=== PATIENT | female | born 1980 | race Caucasian/White ===

== ENCOUNTER 2021-04-18 23:53 | Emergency (ER) | payer OTHER, SELFPAY ==
--- NOTE | 2021-04-18 23:58 | ED.RECABL ---
HPI - Recheck/Abnormal Lab/Rx General Chief Complaint: Recheck/Abnormal Lab/Rx Stated Complaint: High BG Time Seen by Provider: 04/18/21 23:58 History of Present Illness HPI narrative: 40 yo female w/ h/o DM presents to the ED for hyperglycemia. 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 She was trying to stay hydrated, but felt like she was not able to. She checked her blood sugar and it was over 300. She has not had any recent medication changes. Related Data Home Medications Medication Instructions Recorded Confirmed clonazepam 04/19/21 fluoxetine mg 04/19/21 gabapentin 04/19/21 glimepiride mg 04/19/21 loratadine mg 04/19/21 meloxicam 04/19/21 metformin mg 04/19/21 omeprazole 04/19/21 tramadol mg 04/19/21 valacyclovir 04/19/21 zolpidem 04/19/21 04/19/21 Allergies Allergy/AdvReac Type Severity Reaction Status Date / Time No Known Allergies Allergy Verified 04/19/21 21:12 Review of Systems Review of Systems: All systems reviewed & are unremarkable except as noted in HPI and below Constitutional: Constitutional: Reports fatigue and Denies fever(s) Cardiovascular: Cardiovascular: Denies chest pain Respiratory: Respiratory: Denies dyspnea Gastrointestinal: Gastrointestinal: Denies abdominal pain Genitourinary: Genitourinary: Denies hematuria and Denies dysuria [facility] Past Medical History Medical History (Updated 04/24/21 @ 16:57 by Konstantin Moreno MD) Diabetes mellitus HTN (hypertension) Exam Const: General: no acute distress and alert Nutritional Appearance: obese Orientation/consciousness: patient oriented x3 HENMT: Head: normal to inspection Mouth: Yes dry mucous membranes Eyes: EOM: EOMs intact bilaterally Neck: Neck: normal visual inspection and no lymphadenopathy Chest: Chest palpation & inspection: no tenderness Resp: Effort & Inspection: normal respiratory effort Auscultation: clear to auscultation bilaterally, no rales, no rhonchi and no wheezes Cardio: Jugular venous distension: no JVD Rate: regular rate Rhythm: regular rhythm Heart sounds: no murmurs GI: Inspection: non-distended GI Palp: Yes Soft to palpation and No Tenderness to palpation present (GI) Skin: General skin exam: normal color Neuro: General: patient oriented x3, moves all extremities, no focal motor deficits and CN's II-XI intact bilaterally Cranial nerves: Yes Nystagmus not present Speech: normal speech Gait exam (Neuro): Normal gait present Extrem: General: normal to inspection and no edema Psych: Appearance: well kempt Affect: normal affect and Anxious affect present Course Vital Signs Vital signs: Vital Signs Temperature 36.0 C L 04/19/21 00:02 Pulse Rate 67 04/19/21 00:02 Respiratory Rate 20 04/19/21 00:02 Blood Pressure 144/75 H 04/19/21 00:02 Pulse Oximetry 100 04/19/21 00:02 Temperature 36.0 C L 04/19/21 00:02 Pulse Rate 71 04/19/21 03:23 Respiratory Rate 18 04/19/21 03:23 Blood Pressure 143/84 H 04/19/21 03:23 Pulse Oximetry 97 04/19/21 03:23 MDM - Recheck/Abnormal Lab/Rx Medical Records Attestation: I reviewed the patient's medical records. Lab Data Attestation: I reviewed the patient's lab results. Result diagrams: 04/19/21 00:43 04/19/21 01:03 Labs: Lab Results 04/19/21 04/19/21 04/19/21 Range/Units 00:02 00:43 01:03 WBC 12.4 H (4.5-10.0) K/mm3 RBC 4.91 (4.2-5.4) M/mm3 Hgb 13.5 (12.0-15.0) g/dL Hct 40.7 (37.0-47.0) % MCV 82.9 (80-100) fl MCH 27.5 (26-34) pg MCHC 33.2 (32-36) g/dl RDW 13.2 (11.5-14.5) % Plt Count 253 (150-375) k/mm3 MPV 10.6 H (7.4-10.4) fl Immature Gran % (Auto) 0.3 (0-0.5) % Neut % (Auto) 67.0 (45.5-73.1) % Lymph % (Auto) 24.8 (18.3-44.2) % Craig % (Auto) 6.3 (2.6-8.5) % Eos % (Auto) 1.2 (0-4.4) % Baso % (Au
[2021-04-19 00:02] VITALS: BP 144/75; PULSE 67; RESP 20; TEMP 36; O2SAT 100
[2021-04-19 00:04] LABS: Glucose Point of Care 265 mg/dl (65-105)
[2021-04-19] MEDS: SODIUM CHLORIDE 0.9% IV 1,000 ML 999 ML IV CONT (00:50)
[2021-04-19 01:00] LABS: Basophils Absolute Auto 0.1 K/mm3 (0.0-0.1); Basophils Percent Auto 0.4 % (0.2-1.2); Eosinophils Absolute Auto 0.2 K/mm3 (0-0.3); Eosinophils Percent Auto 1.2 % (0-4.4); Hematocrit 40.7 % (37.0-47.0); Hemoglobin 13.5 g/dL (12.0-15.0); Immature Granulocyte Absolute 0.04 K/mm3 (0.00-0.031); Immature Granulocyte Percent A 0.3 % (0-0.5); Lymphocytes Absolute Auto 3.07 K/mm3 (0.9-3.2); Lymphocytes Percent Auto 24.8 % (18.3-44.2); Mean Corpuscular HGB Conc 33.2 g/dl (32-36); Mean Corpuscular Hemoglobin 27.5 pg (26-34); Mean Corpuscular Volume 82.9 fl (80-100); Mean Platelet Volume 10.6 fl (7.4-10.4); Monocytes Absolute Auto 0.8 K/mm3 (0.1-0.6); Monocytes Percent Auto 6.3 % (2.6-8.5); Neutrophils Absolute Auto 8.3 K/mm3 (1.3-6.7); Platelet Count Result 253 k/mm3 (150-375); Red Blood Count 4.91 M/mm3 (4.2-5.4); Red Cell Distribution Width 13.2 % (11.5-14.5); White Blood Count 12.4 K/mm3 (4.5-10.0)
[2021-04-19 01:30] LABS: Alanine Aminotransferase 16 U/L (4-35); Alkaline Phosphatase 80 U/L (38-126); Anion Gap 7 mmol/L (8-16); Aspartate Amino Transferase 20 U/L (14-36); Bilirubin,Total 0.6 mg/dL (0.2-1.3); Blood Urea Nitrogen 17 mg/dL (7-17); Calcium 9.3 mg/dL (8.4-10.2); Carbon Dioxide 26 mmol/L (22-30); Chloride 101 mmol/L (98-107); Estimated CRCL calculation 149 ml/min; Estimated Glomerular Filt Rate > 60; Glucose 237 mg/dL (65-105); Potassium 4.2 mmol/L (3.4-5.0); Sodium 134 mmol/L (137-145)
[2021-04-19 02:10] LABS: Add Urine Microscopic? YES; Appearance Urine Clear (Clear); Bacteria Urine Trace /hpf; Bilirubin Urine Negative (Negative); Blood Urine Negative (Negative); Color Urine Yellow (Yellow); Glucose Urine UA 3+ mg/dL (Negative); Ketones Urine Negative (Negative); Leukocyte Esterase Ur Negative LEU/UL (Negative); Nitrate Urine Negative (Negative); Protein Urine Negative (Negative); RBC Urine 0-2 /hpf (0-2); Squamous Epithelial Cell Urine Rare /hpf (Few); WBC Urine 0-3 /hpf
[2021-04-19 02:11] LABS: Specific Grav Ur 1.037 (1.001-1.035)
[2021-04-19 02:35] VITALS: BP 146/98; PULSE 63; RESP 18; O2SAT 98
[2021-04-19 03:23] VITALS: BP 143/84; PULSE 71; RESP 18; O2SAT 97
== END 2021-04-19 03:27 | disposition home or self-care (01) ==
PROVIDERS: Emergency Provider Emergency Medicine; PCP Family Medicine
DX: E11.65 Type 2 diabetes mellitus with hyperglycemia (principal); I10 Essential (primary) hypertension; Z79.84 Long term (current) use of oral hypoglycemic drugs
CPT/HCPCS: 36415; 80053; 81001; 82948; 85025; 90715; 96360; 96361; 96374; 96375; 99283; 99284; J1200; J1815; J2765; J7030

== ENCOUNTER 2021-04-19 20:13 | Emergency (ER) | payer OTHER, SELFPAY ==
[2021-04-19 20:33] VITALS: BP 144/75; PULSE 64; RESP 16; TEMP 36.6; O2SAT 99
[2021-04-19 20:33] LABS: Glucose Point of Care 252 mg/dl (65-105)
[2021-04-19 21:11] VITALS: BP 145/80; PULSE 66; RESP 18; O2SAT 99
[2021-04-19 22:26] LABS: Glucose Point of Care 248 mg/dl (65-105)
[2021-04-19] MEDS: SODIUM CHLORIDE 0.9% IV 1,000 ML 999 ML IV CONT (22:27)
[2021-04-19] MEDS: diphenhydrAMINE HCl INJ 50 MG/ML VIAL IV PUSH (22:28)
[2021-04-19] MEDS: METOCLOPRAMIDE HCL INJ 10 MG/2 ML VIAL IV PUSH (22:31)
--- NOTE | 2021-04-19 23:30 | ED.GENADULT ---
HPI - General Adult General Chief complaint: Nausea/Vomiting/Diarrhea Stated complaint: nausea, emesis, elevated glucose Time Seen by Provider: 04/19/21 22:28 Source: patient and RN notes reviewed Mode of arrival: ambulatory Limitations: no limitations History of Present Illness HPI narrative: Patient is 40 years old white female presents with elevated blood glucose, at home was 252 patient denies any fever, chills patient report stress, and anxiety. Patient reported that her blood glucose went to [place] high after her last meal. Related Data Home Medications Medication Instructions Recorded Confirmed clonazepam 04/19/21 fluoxetine mg 04/19/21 gabapentin 04/19/21 glimepiride mg 04/19/21 loratadine mg 04/19/21 meloxicam 04/19/21 metformin mg 04/19/21 omeprazole 04/19/21 tramadol mg 04/19/21 valacyclovir 04/19/21 zolpidem 04/19/21 04/19/21 Allergies Allergy/AdvReac Type Severity Reaction Status Date / Time No Known Allergies Allergy Verified 04/19/21 21:12 Review of Systems Review of Systems: Narrative: CONSTITUTIONAL: Denies fever, chills, or sweats. EYES: Denies visual changes, redness, or discharge. ENT: Denies rhinorrhea, congestion, sore throat, or otalgia. CARDIOVASCULAR: Denies chest pain, palpitations, or edema. RESPIRATORY: Denies cough or dyspnea. GASTROINTESTINAL: Denies abdominal pain, nausea, vomiting, or diarrhea. GENITOURINARY: Denies dysuria or hematuria. SKIN: Denies rash or itching. MUSCULOSKELETAL: Denies back pain, joint pain, or myalgia. NEUROLOGIC: Denies headache, numbness, or weakness. PSYCHIATRIC: Denies anxiety or depression. Exam Narrative: Exam Narrative: General appearance: Well-developed, well-nourished Skin: Normal color Head: Normocephalic, nontraumatic Eyes: Clear conjunctiva ENT: Oropharynx normal, ears normal, nose normal Neck: Supple, nontender Chest and respiratory: Airway patent, no respiratory distress, no accessory muscle use Heart: Regular rate/rhythm Abdomen: Soft, nontender, no organomegaly, quiet bowel sounds Vascular: Normal peripheral pulses, normal capillary refill. Musculoskeletal: Normal range of motion, nontender back Neurologic: Alert and oriented ?3, [employer] is normal as tested, no gross motor deficit Course Course Emergency Course: Improving Vital Signs Vital signs: Vital Signs Temperature 36.6 C 04/19/21 20:33 Pulse Rate 64 04/19/21 20:33 Respiratory Rate 16 04/19/21 20:33 Blood Pressure 144/75 H 04/19/21 20:33 Pulse Oximetry 99 04/19/21 20:33 Temperature 36.6 C 04/19/21 20:33 Pulse Rate 66 04/19/21 21:11 Respiratory Rate 18 04/19/21 21:11 Blood Pressure 145/80 H 04/19/21 21:11 Pulse Oximetry 99 04/19/21 21:11 Medical Decision Making MDM Narrative Medical decision making narrative: Patient feeling much better after receiving 1 L of normal saline, Reglan 10 mg and Benadryl 50 mg patient reports feeling great and would like to go home right away. Blood glucose at this time is 224 Differential Diagnosis Differential Diagnosis: Poorly controlled diabetic hyperglycemia Vital Signs Vital Signs: Vital Signs Temperature 36.6 C 04/19/21 20:33 Pulse Rate 64 04/19/21 20:33 Respiratory Rate 16 04/19/21 20:33 Blood Pressure 144/75 H 04/19/21 20:33 Pulse Oximetry 99 04/19/21 20:33 Temperature 36.6 C 04/19/21 20:33 Pulse Rate 66 04/19/21 21:11 Respiratory Rate 18 04/19/21 21:11 Blood Pressure 145/80 H 04/19/21 21:11 Pulse Oximetry 99 04/19/21 21:11 Lab Data Labs: Lab Results 04/19/21 04/19/21 Range/Units 20:30 22:23 POC Capillary Glucose 252 H 248 H (65-105) mg/dl Critical
[2021-04-19] MEDS: INSULIN ASPART (*BKC) 100 UNITS/ML SUB-Q (23:47)
[2021-04-19 23:51] VITALS: BP 144/82; PULSE 67; RESP 18; O2SAT 100
[2021-04-20 06:15] LABS: Glucose Point of Care 224 mg/dl (65-105)
== END 2021-04-19 23:54 | disposition home or self-care (01) ==
PROVIDERS: Emergency Provider Emergency Medicine; PCP Family Medicine
DX: R73.9 Hyperglycemia, unspecified (principal)
CPT/HCPCS: 82948; 90715; 96361; 96374; 96375; 99284; J1200; J1815; J2765; J7030

== ENCOUNTER 2021-09-22 11:45 | Emergency (ER) | payer OTHER, SELFPAY ==
[2021-09-22 11:51] VITALS: BP 140/88; PULSE 60; RESP 16; TEMP 36.1; O2SAT 99
--- NOTE | 2021-09-22 13:34 | ED.GENADULT ---
HPI - General Adult General Chief complaint: Nausea/Vomiting/Diarrhea Stated complaint: Throwing Up Time Seen by Provider: 09/22/21 13:22 Source: patient and RN notes reviewed Mode of arrival: ambulatory Limitations: no limitations History of Present Illness HPI narrative: Patient presents today complaining of a 3-day history of nausea, vomiting, diarrhea, body aches, headache, right ear pain, chills, fatigue, dry cough. Denies sore throat or fever. Denies shortness of breath. She has been taking Tylenol at home with mild relief. MD complaint: Vomiting, diarrhea, body aches Related Data Home Medications Medication Instructions Recorded Confirmed glimepiride 4 mg PO DAILY 04/19/21 09/22/21 metformin mg 04/19/21 omeprazole 04/19/21 valacyclovir 04/19/21 zolpidem 04/19/21 04/19/21 liraglutide [Victoza 2-Javed] mg SUBCUT 09/22/21 09/22/21 Allergies Allergy/AdvReac Type Severity Reaction Status Date / Time No Known Allergies Allergy Verified 09/22/21 13:18 Review of Systems Review of Systems: CONSTITUTIONAL: Denies fever, or sweats.+ Body aches, chills, fatigue EYES: Denies visual changes, redness, or discharge. ENT: Denies rhinorrhea, congestion, sore throat. + Right ear pain CARDIOVASCULAR: Denies chest pain, palpitations, or edema. RESPIRATORY: Denies dyspnea.+ Cough GASTROINTESTINAL: Denies abdominal pain. + Nausea, vomiting, diarrhea GENITOURINARY: Denies dysuria or hematuria. SKIN: Denies rash, itching, or wounds. MUSCULOSKELETAL: Denies back pain, joint pain, or myalgia. NEUROLOGIC: Denies numbness, tingling, or weakness.+ Headache PSYCH: Denies depression or anxiety. [facility] Past Medical History Medical History Diabetes mellitus HTN (hypertension) Comments At time of signature, I have reviewed and agree with nursing past medical, surgical, social and family history unless otherwise noted. Please see nursing chart for further information. There is no relevant family history pertinent to the presenting complaint Exam Narrative: GENERAL: Mildly ill-appearing, well-nourished, and in no acute distress. HEAD: Normocephalic, atraumatic. EYES: EOMI. No redness or drainage. Conjunctivae normal. ENT: Mucous membranes pink and moist. Nares clear. No rhinorrhea. TMs normal bilaterally. Throat mildly erythematous without edema or exudate. Uvula midline. NECK: Normal AROM. Supple. No lymphadenopathy. CHEST: No respiratory distress. Clear to auscultation. HEART: Regular rate and rhythm. No murmur appreciated. Normal peripheral pulses. EXTREMITIES: Normal range of motion. No edema. SKIN: Warm, dry, no rash. Capillary refill normal. Normal skin turgor. NEURO: No focal deficits. Alert and oriented x3. Gait steady. PSYCH: Normal affect. No signs of depression or anxiety. Course Course Emergency Course: Covid PCR pending Vital Signs Vital signs: Vital Signs Temperature 97.0 F L 09/22/21 11:51 Pulse Rate 60 09/22/21 11:51 Respiratory Rate 16 09/22/21 11:51 Blood Pressure 140/88 09/22/21 11:51 Pulse Oximetry 99 09/22/21 11:51 Temperature 97.0 F L 09/22/21 11:51 Pulse Rate 60 09/22/21 11:51 Respiratory Rate 16 09/22/21 11:51 Blood Pressure 140/88 09/22/21 11:51 Pulse Oximetry 99 09/22/21 11:51 Reviewed. Pt has been instructed to follow up with her PCP regarding her elevated blood pressure today. Medical Decision Making Differential Diagnosis Differential Diagnosis: COVID-19, influenza, strep throat, viral syndrome, URI, gastroenteritis, AOM Vital Signs Vital Signs: Vital Signs Temperature 97.0 F L 09/22/21 11:51 Pulse Rate 60 09/22/21 11:51 Respiratory Rate 16 09/22/21 11:51 Blood Pressure 140/88 09/22/21 11:51 Pulse Oximetry 99 09/22/21 11:51 Temperature 97.0 F L 09/22/21 11:51 Pulse Rate 60 09/22/21 11:51 Respiratory Rate 16 09/22/21 11:51 Blood Pressure 140/88 11
[2021-09-23 20:04] LABS: SARS-CoV-2 RNA PCR Negative
== END 2021-09-22 14:05 | disposition home or self-care (01) ==
PROVIDERS: Emergency Provider Nurse Practitioner; PCP Family Medicine
DX: B34.9 Viral infection, unspecified (principal); Z20.822 Contact with and (suspected) exposure to COVID-19; E11.9 Type 2 diabetes mellitus without complications; I10 Essential (primary) hypertension
CPT/HCPCS: 87081; 87426; 87804; 87880; 99213; C9803; G0463; U0003; U0005

== ENCOUNTER 2021-10-28 11:16 | Emergency (ER) | payer OTHER, SELFPAY ==
[2021-10-28 11:30] VITALS: BP 150/85; PULSE 63; RESP 18; TEMP 37.1; O2SAT 100
--- NOTE | 2021-10-28 13:19 | ED.GENADULT ---
HPI - General Adult General Chief complaint: Upper Respiratory Infection Stated complaint: Fever,Sore Throat Time Seen by Provider: 10/28/21 13:10 Source: patient, RN notes reviewed and old records reviewed Mode of arrival: ambulatory Limitations: no limitations History of Present Illness HPI narrative: 40-year-old female who presents to [facility] with complaints of body aches,fevers up to 101.5F, cough, ears feel full, eyes are burning and she has some sore throat pain which started 2 nights ago. Patient states that dhe has had COVID vaccines and Flu shot but has not had Booster. Patient reports that her last dose of Tylenol was last night. Patient denies any acute shortness of breath or any noted wheezing, SAO2 100% on room air. MD complaint: bodyaches, fever, ears feel full, eyes burning, Related Data Home Medications Medication Instructions Recorded Confirmed clonazepam 0.5 mg PO DIRECTED 10/28/21 10/28/21 dextroamphetamine-amphetamine 20 mg PO DAILY 10/28/21 10/28/21 fluoxetine 40 mg PO DAILY 10/28/21 10/28/21 glimepiride 4 mg PO DAILY 10/28/21 10/28/21 loratadine 10 mg PO DAILY 10/28/21 10/28/21 metformin 850 mg PO DAILY 10/28/21 10/28/21 omeprazole 40 mg PO DAILY 10/28/21 10/28/21 tramadol 50 mg PO DAILY 10/28/21 10/28/21 Allergies Allergy/AdvReac Type Severity Reaction Status Date / Time No Known Allergies Allergy Verified 10/28/21 13:09 Review of Systems Review of Systems: CONSTITUTIONAL: Positive fever, chills, or sweats. EYES: Denies visual changes, redness, or discharge. Reports eyes burning ENT: Positive rhinorrhea, congestion, sore throat, or otalgia. CARDIOVASCULAR: Denies chest pain, palpitations, or edema. RESPIRATORY positive cough denies dyspnea. GASTROINTESTINAL: Denies abdominal pain, nausea, vomiting, or diarrhea. GENITOURINARY: Denies dysuria or hematuria. SKIN: Denies rash or itching. MUSCULOSKELETAL: Denies back pain, joint pain, positive body aches NEUROLOGIC: Denies headache, numbness, or weakness. PSYCHIATRIC: Positive anxiety or depression. All systems reviewed & are unremarkable except as noted in HPI and below PMFSH Past Medical History Medical History (Updated 10/29/21 @ 00:27 by Charmaine Ventura NP) Anxiety and depression Diabetes mellitus GERD (gastroesophageal reflux disease) HTN (hypertension) Obesity Surgical History Surgical History (Updated 10/29/21 @ 00:31 by Charmaine Ventura NP) H/O inguinal hernia repair H/O umbilical hernia repair History of cholecystectomy Family History Family History (Updated 10/29/21 @ 00:32 by Charmaine Ventura NP) Grandparent Heart disease Diabetes mellitus Alzheimers disease COPD (chronic obstructive pulmonary disease) Arthritis Social History Social History (Updated 10/29/21 @ 00:33 by Charmaine Ventura NP) Smoking status: Never smoker Alcohol intake: current Alcohol use details: rare social Substance use: never Living arrangements: with family Gender identity (if verbalized by the patient): Female Comments At time of signature, agree with nursing past medical, surgical, social and family history. There is no relevant family history pertinent to the presenting complaint Exam Narrative: GENERAL:Ill-appearing, well-nourished,obese and in no acute distress. HEAD: Normocephalic, atraumatic. EYES: PERRLA and EOMI.stated eyes burning no visual changes ENT: Nares patent with clear rhinorrhea no epistaxis. Mucous membranes moist.TM's normal with good light reflex, throat red with no lesions or tonsil enlargement, post nasal drainage. NECK: Supple.no lymphadenopathy CHEST: Clear to auscultation. No respiratory distress.SAO2 100% on room air. cough noted HEART: Regular rate and rhythm. No murmur heard. Normal peripheral pulses. ABDOMEN: Soft, nontender, nondistended, normal active bowel sounds. EXTREMITIES: Normal range of motion. No edema. SKIN: Warm, dry, no rash. NEURO: No focal deficits. Alert and or
== END 2021-10-28 14:37 | disposition home or self-care (01) ==
PROVIDERS: Emergency Provider Registered Nurse
DX: U07.1 COVID-19 (principal); E11.9 Type 2 diabetes mellitus without complications; K21.9 Gastro-esophageal reflux disease without esophagitis; I10 Essential (primary) hypertension; E66.9 Obesity, unspecified; Z68.42 Body mass index [BMI] 45.0-49.9, adult; F41.9 Anxiety disorder, unspecified; F32.9 Major depressive disorder, single episode, unspecified
CPT/HCPCS: 87081; 87426; 87804; 87880; 99213; C9803; G0463

== ENCOUNTER 2022-05-23 16:52 | Emergency (ER) | payer OTHER, SELFPAY ==
--- NOTE | ~2022-05-23 | CT_ITS ---
EXAMINATION: CT brain wo con DATE: 05/23/2022 17:32 INDICATION: new onset of seizure . TECHNIQUE: Computed tomography (CT) of the head was performed without intravenous contrast. The mA wa s adjusted according to patient size. Iterative reconstruction technique was employed. The dose-lengt h product was 605.33 mGy-cm. COMPARISON: None FINDINGS: No acute intracranial hemorrhage or extra-axial fluid collection. No hydrocephalus, mass, or herniation. No acute ischemic infarct. Unremarkable dural venous sinus attenuation. No acute osseous abnormality. The aerated spaces are clear. IMPRESSION: No acute intracranial process. Reviewed, dictated and finalized at location K.
[2022-05-23 17:00] VITALS: BP 104/54; PULSE 79; RESP 16; TEMP 36.9; O2SAT 100
--- NOTE | 2022-05-23 17:16 | ECG_ITS ---
Measurements Intervals [place] Rate: 79 P: 36 IN: 156 QRS: 26 QRSD: 92 T: 52 QT: 370 QTc: 424 Interpretive Statements SINUS RHYTHM POSSIBLE LEFT ATRIAL ENLARGEMENT BORDERLINE R WAVE PROGRESSION, ANTERIOR LEADS BASELINE WANDER- AVF BORDERLINE ECG Electronically Signed On 05-24-2022 8:03:42 CDT by Elgin Talamantes D.O.
--- NOTE | 2022-05-23 17:17 | ED.SEIZURE ---
HPI - Seizure General Chief Complaint: Seizure Stated Complaint: NEW ONSET SZ ACTIVITY Time Seen by Provider: 05/23/22 17:09 History of Present Illness HPI Narrative: 41-year-old female presents emergency room for evaluation of new onset seizure. Patient states earlier this afternoon, she returned home from eating lunch at a restaurant, states that she was dizzy, felt feverish, diaphoretic and had a syncopal episode. Patient states her roommates who reportedly told her she was unconscious for about 30 seconds. Several minutes later, the symptoms returned, and the patient had a second syncopal episode followed by seizure-like activity. According to her roommates, the time between the end of her seizure and when she regained consciousness was about 2 minutes. Patient states that she did not lose control of her bladder or bite her tongue. Patient does not have a known history of seizure disorder. Patient states that she discontinued taking her fluoxetine, tramadol, and clonazepam over 6 weeks ago. Patient denies any injury or trauma. Denies fever. Related Data Home Medications Medication Instructions Recorded Confirmed clonazepam 0.5 mg tablet 0.5 mg PO DIRECTED 10/28/21 10/28/21 dextroamphetamine-amphetamine ER 20 mg PO DAILY 10/28/21 10/28/21 20 mg 24hr capsule,extend release fluoxetine 40 mg capsule 40 mg PO DAILY 10/28/21 10/28/21 glimepiride 4 mg tablet 4 mg PO DAILY 10/28/21 10/28/21 loratadine 10 mg tablet 10 mg PO DAILY 10/28/21 10/28/21 metformin 850 mg tablet 850 mg PO DAILY 10/28/21 10/28/21 omeprazole 40 mg capsule,delayed 40 mg PO DAILY 10/28/21 10/28/21 release tramadol 50 mg tablet 50 mg PO DAILY 10/28/21 10/28/21 Allergies Allergy/AdvReac Type Severity Reaction Status Date / Time No Known Allergies Allergy Verified 10/28/21 13:09 Review of Systems Review of Systems: CONSTITUTIONAL: Denies fever, chills, or sweats. EYES: Denies visual changes, redness, or discharge. ENT: Denies rhinorrhea, congestion, sore throat, or otalgia. CARDIOVASCULAR: Denies chest pain, palpitations, or edema. RESPIRATORY: Denies cough or dyspnea. GASTROINTESTINAL: Denies abdominal pain, nausea, vomiting, or diarrhea. GENITOURINARY: Denies dysuria or hematuria. SKIN: Denies rash or itching. MUSCULOSKELETAL: Denies back pain, joint pain, or myalgia. NEUROLOGIC: Reports seizure-like activity PSYCHIATRIC: Denies anxiety or depression. [facility] Past Medical History Medical History Anxiety and depression Diabetes mellitus GERD (gastroesophageal reflux disease) HTN (hypertension) Obesity Surgical History Surgical History H/O inguinal hernia repair H/O umbilical hernia repair History of cholecystectomy Family History Family History Grandparent Heart disease Diabetes mellitus Alzheimers disease COPD (chronic obstructive pulmonary disease) Arthritis Social History Social History Smoking status: Never smoker Alcohol intake: current Alcohol use details: rare social Substance use: never Gender identity (if verbalized by the patient): Female Exam Narrative: GENERAL: Well-appearing, well-nourished, no physical limitations, and in no acute distress. HEAD: Normocephalic, atraumatic. EYES: Conjunctivae normal, PERRLA and EOMI. ENT: External nose normal, Nares clear, no rhinorrhea or epistaxis. Mucous membranes moist. Oropharynx without tonsillar hypertrophy exudate or other lesions. External ears normal, bilateral TMs normal bilaterally NECK: Supple. No meningeal signs. No adenopathy or masses. CHEST: Clear to auscultation. No respiratory distress. No wheezes rales or rhonchi. No tenderness. HEART: Regular rate and rhythm. No murmur heard. Normal peripheral pulses. ABDOMEN: Soft, nonten
[2022-05-23 17:30] LABS: Basophils Absolute Auto 0.1 K/mm3 (0.0-0.1); Basophils Percent Auto 0.5 % (0.2-1.2); Eosinophils Absolute Auto 0.2 K/mm3 (0-0.3); Eosinophils Percent Auto 1.6 % (0-4.4); Hemoglobin 13.8 g/dL (12.0-15.0); Immature Granulocyte Absolute 0.05 K/mm3 (0.00-0.031); Immature Granulocyte Percent A 0.5 % (0-0.5); Lymphocytes Absolute Auto 2.83 K/mm3 (0.9-3.2); Lymphocytes Percent Auto 25.9 % (18.3-44.2); Mean Corpuscular HGB Conc 32.9 g/dl (32-36); Mean Corpuscular Hemoglobin 27.4 pg (26-34); Mean Corpuscular Volume 83.3 fl (80-100); Mean Platelet Volume 10.2 fl (7.4-10.4); Monocytes Absolute Auto 0.6 K/mm3 (0.1-0.6); Monocytes Percent Auto 5.8 % (2.6-8.5); Neutrophils Absolute Auto 7.2 K/mm3 (1.3-6.7); Neutrophils Percent Auto 65.7 % (45.5-73.1); Platelet Count Result 279 k/mm3 (150-375); Red Blood Count 5.04 M/mm3 (4.2-5.4); Red Cell Distribution Width 13.2 % (11.5-14.5); White Blood Count 10.9 K/mm3 (4.5-10.0)
[2022-05-23 17:42] LABS: Alanine Aminotransferase 13 U/L (6-35); Albumin Level 4.1 g/dL (3.5-5.1); Alkaline Phosphatase 103 U/L (38-126); Anion Gap 11 mmol/L (8-16); Aspartate Amino Transferase 15 U/L (14-36); Bilirubin,Total 0.6 mg/dL (0.2-1.3); Blood Urea Nitrogen 12 mg/dL (7-17); Calcium 9.5 mg/dL (8.4-10.2); Carbon Dioxide 28 mmol/L (22-30); Chloride 94 mmol/L (98-107); Estimated CRCL calculation 123 ml/min; Estimated Glomerular Filt Rate > 60; Glucose 358 mg/dL (65-110); INR 1.1; Potassium 4.2 mmol/L (3.4-5.0); Prothrombin Time 13.9 Seconds (11.1-14.7); Sodium 133 mmol/L (137-145)
[2022-05-23 17:43] LABS: Partial Thromboplastin Time 27.1 SECONDS (22.3-36.8)
[2022-05-23 17:53] LABS: Troponin I < 0.012 ng/mL (0.000-0.034)
[2022-05-23 18:06] LABS: Appearance Urine Clear (Clear); Bilirubin Urine Negative (Negative); Color Urine Yellow (Yellow); Glucose Urine UA 3+ mg/dL (Negative); Ketones Urine Negative (Negative); Leukocyte Esterase Ur Negative LEU/UL (Negative); Nitrate Urine Negative (Negative); Protein Urine Negative (Negative); Specific Grav Ur 1.015 (1.001-1.035); Urobilinogen Urine 0.2 mg/dL (<2.0)
[2022-05-23 18:09] LABS: Bacteria Urine Trace /hpf; Squamous Epithelial Cell Urine Rare /hpf (Few)
[2022-05-23 18:09] LABS: Ethanol < 10 mg/dL (<10)
[2022-05-23 18:11] LABS: Add Urine Microscopic? YES; Blood Urine Trace-Intact (Negative)
[2022-05-23] MEDS: SODIUM CHLORIDE 0.9% IV 1,000 ML 999 ML IV CONT ×2 (18:11→19:28)
[2022-05-23 18:25] LABS: Amphetamine Screen Urine Negative (Negative); Barbiturate Screen Urine Negative (Negative); Benzodiazepines Screen Urine Negative (Negative); Cannabinoid Screen Urine Positive (Negative); Cocaine Screen Urine Negative (Negative); Methadone Screen Urine Negative (Negative); Opiate Screen Urine Negative (Negative); Phencyclidine Screen Urine Negative (Negative)
[2022-05-23 19:30] LABS: Glucose Point of Care 294 mg/dl (65-105)
[2022-05-23 20:18] VITALS: BP 125/73; PULSE 89; RESP 100; O2SAT 100
== END 2022-05-23 20:20 | disposition home or self-care (01) ==
PROVIDERS: Emergency Provider Nurse Practitioner Family; PCP Family Medicine
DX: R56.9 Unspecified convulsions (principal); R55 Syncope and collapse; E11.9 Type 2 diabetes mellitus without complications; K21.9 Gastro-esophageal reflux disease without esophagitis; I10 Essential (primary) hypertension; E66.9 Obesity, unspecified; Z68.42 Body mass index [BMI] 45.0-49.9, adult; F41.9 Anxiety disorder, unspecified; F32.A Depression, unspecified; Z79.84 Long term (current) use of oral hypoglycemic drugs; R94.31 Abnormal electrocardiogram [ECG] [EKG]
CPT/HCPCS: 36415; 70450; 80053; 80307; 81001; 82948; 84484; 85025; 85610; 85730; 87086; 87088; 93005; 96360; 96361; 99284; J7030

== ENCOUNTER 2022-11-06 19:59 | Emergency (ER) | payer OTHER, SELFPAY ==
[2022-11-06] VITALS (8 sets, daily range): BP systolic 144–163; BP diastolic 87–99; PULSE 69–89; RESP 16–26; TEMP 36.4; O2SAT 100
--- NOTE | ~2022-11-06 | CT_ITS ---
EXAMINATION: CT abdomen pelvis w con DATE: 11/07/2022 00:46 INDICATION: Lower abdominal pain, vomiting, diarrhea. Low-grade fever. TECHNIQUE: Computed tomography (CT) of the abdomen and pelvis was performed with 100 CC Omnipaque 350 intravenous contrast. Automated exposure control and iterative reconstruction technique were employe d. Exam dose: 1573.22 mGy-cm total exam DLP. COMPARISON: 07/19/2018 CT abdomen FINDINGS: The lung bases are clear of infiltrate or consolidation. No pericardial or pleural effusion . Status post cholecystectomy. The liver, spleen, pancreas and adrenal glands are unremarkable. Right kidney appears normal. There are at least 2 or 3 up to 17 mm and 10 mm left renal probable cysts. No urinary tract calculus or hydroureteronephrosis. The urinary bladder is unremarkable. There is an IUD in expected position within the uterus. Adnexal areas are unremarkable except for approximately 2 .5 cm right ovarian cyst. Normal caliber of the abdominal aorta. No intraperitoneal or retroperitoneal or pelvic mass lesion or adenopathy or ascites. Diverticulosis of the colon; no CT evidence of diverticulitis. Normal appendix. No bowel obstruction, bowel wall thickening, pneumatosis or intraperitoneal free air. There appears to be a surgical mesh repair of fat-containing umbilical hernia. Severe T7 anterior wedge compression fracture deformity. IMPRESSION: Normal appendix Mild colonic diverticulosis; no evidence of diverticulitis Status post cholecystectomy Left renal cysts Severe T7 anterior wedge compression fracture deformity Reviewed, dictated and finalized at [facility]. Reviewed, dictated and finalized at [facility]. ETI[employer]ER
--- NOTE | ~2022-11-06 | XR_ITS ---
XR chest 2V DATE: 11/06/2022 20:51 INDICATION: Chest pain, flu like symptoms. Diabetes. TECHNIQUE: PA and lateral views. COMPARISON: 03/11/2007 2 view chest FINDINGS: Normal heart size. No hilar or mediastinal enlargement. No pulmonary infiltrate or consolid ation, pleural effusion or pulmonary vascular congestion or pneumothorax. Surgical clips, right upper quadrant, consistent with cholecystectomy. IMPRESSION: No active cardiopulmonary disease Reviewed, dictated and finalized at [facility]. [employer]GER
--- NOTE | 2022-11-06 20:11 | ECG_ITS ---
Measurements Intervals [place] Rate: 82 P: 36 NC: 165 QRS: 29 QRSD: 98 T: 30 QT: 358 QTc: 418 Interpretive Statements SINUS RHYTHM POSSIBLE LEFT ATRIAL ENLARGEMENT BORDERLINE R WAVE PROGRESSION, ANTERIOR LEADS BORDERLINE T WAVE ABNORMALITY- ANTERIOR LEADS BASELINE ARTIFACT- I, III, AVL BORDERLINE ECG COMPARED TO ECG 05/23/2022 18:20:49 NO SIGNIFICANT CHANGES Electronically Signed On 11-06-2022 20:54:57 [employer]FFA[employer]NA[employer] by Elgin Talamantes D.O.
[2022-11-06 21:26] LABS: Basophils Absolute Auto 0.1 K/mm3 (0.0-0.1); Basophils Percent Auto 0.4 % (0.2-1.2); Eosinophils Absolute Auto 0.1 K/mm3 (0-0.3); Eosinophils Percent Auto 0.7 % (0-4.4); Hematocrit 45.3 % (37.0-47.0); Hemoglobin 15.2 g/dL (12.0-15.0); Immature Granulocyte Absolute 0.08 K/mm3 (0.00-0.031); Immature Granulocyte Percent A 0.6 % (0-0.5); Lymphocytes Absolute Auto 1.41 K/mm3 (0.9-3.2); Lymphocytes Percent Auto 10.2 % (18.3-44.2); Mean Corpuscular HGB Conc 33.6 g/dl (32-36); Mean Corpuscular Hemoglobin 27.8 pg (26-34); Mean Platelet Volume 10.4 fl (7.4-10.4); Monocytes Absolute Auto 0.4 K/mm3 (0.1-0.6); Neutrophils Absolute Auto 11.8 K/mm3 (1.3-6.7); Neutrophils Percent Auto 85.1 % (45.5-73.1); Platelet Count Result 249 k/mm3 (150-375); Red Blood Count 5.46 M/mm3 (4.2-5.4); Red Cell Distribution Width 12.5 % (11.5-14.5); White Blood Count 13.9 K/mm3 (4.5-10.0)
[2022-11-06 21:36] LABS: Appearance Urine Clear (Clear); Bilirubin Urine Negative (Negative); Blood Urine Trace-lysed (Negative); Glucose Urine UA 2+ mg/dL (Negative); Ketones Urine Negative (Negative); Leukocyte Esterase Ur Negative LEU/UL (Negative); Nitrate Urine Negative (Negative); Protein Urine Negative (Negative); Specific Grav Ur <= 1.005 (1.001-1.035); Urobilinogen Urine 0.2 mg/dL (<2.0); pH Urine 5.5 (5.0-9.0)
[2022-11-06 21:37] LABS: Add Urine Microscopic? YES; Alanine Aminotransferase 23 U/L (6-35); Albumin Level 4.3 g/dL (3.5-5.1); Alkaline Phosphatase 117 U/L (38-126); Anion Gap 12 mmol/L (8-16); Aspartate Amino Transferase 21 U/L (14-36); Blood Urea Nitrogen 9 mg/dL (7-17); Calcium 8.7 mg/dL (8.4-10.2); Carbon Dioxide 24 mmol/L (22-30); Chloride 92 mmol/L (98-107); Color Urine Light Yellow (Yellow); Estimated CRCL calculation 142 ml/min; Estimated Glomerular Filt Rate > 60; Glucose 551 mg/dL (65-110); Lipase 39 U/L (23-300); Potassium 3.9 mmol/L (3.4-5.0); Sodium 128 mmol/L (137-145)
[2022-11-06 21:38] LABS: INR 1.1
[2022-11-06 21:39] LABS: Partial Thromboplastin Time 27.6 SECONDS (22.3-36.8)
[2022-11-06 21:46] LABS: Troponin I < 0.012 ng/mL (0.000-0.034)
[2022-11-06 21:49] LABS: Bacteria Urine Trace /hpf; Squamous Epithelial Cell Urine Few /hpf (Few)
[2022-11-06] MEDS: ASPIRIN 81 MG CHEWABLE TABLET 324 MG PO (21:58)
[2022-11-06] MEDS: ONDANSETRON INJ 4 MG/2 ML VIAL IV PUSH (22:17)
[2022-11-06] MEDS: SODIUM CHLORIDE 0.9% IV 1,000 ML 999 ML IV CONT ×2 (22:17→22:40)
[2022-11-06 23:05] LABS: Influenza A QL RT-PCR Negative (Negative); Influenza B QL RT-PCR Negative (Negative); SARS-CoV-2 RNA PCR Negative
--- NOTE | 2022-11-06 23:25 | ED.ARRPALP ---
HPI - Arrhythmia/Palpitations General Chief Complaint: Arrhythmia/Palpitations Stated Complaint: chest heaviness Time Seen by Provider: 11/06/22 21:44 Source: patient and RN notes reviewed Mode of arrival: ambulatory Limitations: no limitations History of Present Illness HPI narrative: This is a 41 year old female with history of DM who presents for evaluation of multiple complaints. She states yesterday she developed fatigue increase thirst and palpitations. Today her symptoms have worsened. She reports severe chills and she also feels hot all over. She reports vomiting and diarrhea today. She reports some abdominal cramping prior to having diarrhea. She also reports increase urinary frequency but she denies dysuria or vaginal discharge. She also reports intermittent chest heaviness that is not exertional. She denies ches heaviness now. She has not taken her diabetes medication in 2 days. Related Data Home Medications Medication Instructions Recorded Confirmed clonazepam 0.5 mg tablet 0.5 mg PO DIRECTED 10/28/21 10/28/21 dextroamphetamine-amphetamine ER 20 mg PO DAILY 10/28/21 10/28/21 20 mg 24hr capsule,extend release fluoxetine 40 mg capsule 40 mg PO DAILY 10/28/21 10/28/21 glimepiride 4 mg tablet 4 mg PO DAILY 10/28/21 10/28/21 loratadine 10 mg tablet 10 mg PO DAILY 10/28/21 10/28/21 metformin 850 mg tablet 850 mg PO DAILY 10/28/21 10/28/21 omeprazole 40 mg capsule,delayed 40 mg PO DAILY 10/28/21 10/28/21 release tramadol 50 mg tablet 50 mg PO DAILY 10/28/21 10/28/21 Allergies Allergy/AdvReac Type Severity Reaction Status Date / Time No Known Allergies Allergy Verified 10/28/21 13:09 Review of Systems Constitutional: Constitutional: Reports chills, Reports fatigue, Reports fever(s) (subjective) and Denies weakness Cardiovascular: Cardiovascular: Denies syncope, Reports rapid heart rate, Denies irregular heart rhythm, Denies leg edema and Denies dyspnea Comments: palpitations Respiratory: Respiratory: Denies chest congestion, Denies hemoptysis, Denies excessive phlegm production and Denies dyspnea Gastrointestinal: Gastrointestinal: Reports abdominal pain, Denies hematochezia, Reports diarrhea, Reports nausea and Reports vomiting Genitourinary: Genitourinary: Denies hematuria and Denies dysuria Comments: vaginal itching present Musculoskeletal: Musculoskeletal: Denies joint swelling, Denies loss of height and Denies muscle weakness Neurologic: Denies syncope, Denies focal weakness and Denies weakness PMFSH Past Medical History Medical History Anxiety and depression Diabetes mellitus GERD (gastroesophageal reflux disease) HTN (hypertension) Obesity Surgical History Surgical History H/O inguinal hernia repair H/O umbilical hernia repair History of cholecystectomy Family History Family History Grandparent Heart disease Diabetes mellitus Alzheimers disease COPD (chronic obstructive pulmonary disease) Arthritis Social History Social History Smoking status: Never smoker Alcohol intake: current Alcohol use details: rare social Substance use: never Gender identity (if verbalized by the patient): Female Exam Narrative: GENERAL: Well-appearing, well-nourished, and in no acute distress. HEAD: Normocephalic, atraumatic EYES: PERRLA and EOMI, conjunctiva clear without discharge EARS: TM's clear bilaterally without erythema or dullness NOSE: Nares clear, no rhinorrhea or epistaxis THROAT:Mucous membranes moist, Oropharynx normal without erythema, exudate, peritonsillar swelling or fluctuance NECK: Supple, without lymphadenopathy or mass RESPIRATORY: No respiratory distress, Airway patent, Respirations non-labored, Clear to auscultation without rales, rhon
[2022-11-06] MEDS: INSULIN HUMAN REGULAR (*BKC) 100 UNITS/ML 8 UNITS SUB-Q (23:44)
[2022-11-07 00:47] LABS: Troponin I < 0.012 ng/mL (0.000-0.034)
[2022-11-07 01:44] LABS: Glucose Point of Care 236 mg/dl (65-105)
[2022-11-07] MEDS: PANTOPRAZOLE SODIUM IV 40 MG VIAL IV PUSH (02:00)
[2022-11-07] MEDS: FLUCONAZOLE 150 MG TABLET PO (02:01)
[2022-11-07] MEDS: ONDANSETRON INJ 4 MG/2 ML VIAL IV PUSH (02:01)
[2022-11-07 02:43] VITALS: BP 134/79; PULSE 82; RESP 20; O2SAT 98
== END 2022-11-07 02:44 | disposition home or self-care (01) ==
PROVIDERS: Emergency Provider General Practice; PCP Family Medicine
DX: E11.65 Type 2 diabetes mellitus with hyperglycemia (principal); K52.9 Noninfective gastroenteritis and colitis, unspecified; B37.31 Acute candidiasis of vulva and vagina; Z20.822 Contact with and (suspected) exposure to COVID-19; T38.3X6A Underdosing of insulin and oral hypoglycemic [antidiabetic] drugs, initial encounter; I10 Essential (primary) hypertension; K21.9 Gastro-esophageal reflux disease without esophagitis; E66.9 Obesity, unspecified; Z68.42 Body mass index [BMI] 45.0-49.9, adult; F41.9 Anxiety disorder, unspecified; F32.A Depression, unspecified; Z79.84 Long term (current) use of oral hypoglycemic drugs; R94.31 Abnormal electrocardiogram [ECG] [EKG]; K57.90 Diverticulosis of intestine, part unspecified, without perforation or abscess without bleeding; N28.1 Cyst of kidney, acquired
CPT/HCPCS: 36415; 71046; 74177; 80053; 81001; 81025; 82948; 83690; 84484; 85025; 85610; 85730; 87636; 93005; 96361; 96374; 96375; 99284; A9270; C9113; J1815; J2405; J7030; Q9967

== ENCOUNTER 2022-12-18 13:17 | Emergency (ER) | payer OTHER, SELFPAY ==
[2022-12-18 13:27] VITALS: BP 152/93; PULSE 76; RESP 16; TEMP 36.3; O2SAT 100
--- NOTE | 2022-12-18 14:03 | ED.URI ---
HPI - URI/Sore Throat General Chief Complaint: Upper Respiratory Infection Stated Complaint: Left Ear/Sore Throat Time Seen by Provider: 12/18/22 13:30 Source: patient, RN notes reviewed and old records reviewed Mode of arrival: ambulatory Limitations: no limitations History of Present Illness HPI Narrative: 42-year-old female presents to the [facility] with complaints of left ear and sore throat for 2 days. Also complains of a cough Has taken Tylenol MD elicited complaint: cough, sore throat and other (Left ear pain) Related Data Home Medications Medication Instructions Recorded Confirmed dextroamphetamine-amphetamine ER 20 mg PO DAILY 10/28/21 12/18/22 20 mg 24hr capsule,extend release glimepiride 4 mg tablet 4 mg PO DAILY 10/28/21 12/18/22 loratadine 10 mg tablet 10 mg PO DAILY 10/28/21 12/18/22 citalopram 10 mg tablet 10 mg PO DAILY 12/18/22 12/18/22 gabapentin 600 mg tablet 600 mg PO TID 12/18/22 12/18/22 liraglutide 0.6 mg/0.1 mL (18 mg/3 0.6 mg subcut DAILY 12/18/22 12/18/22 mL) subcutaneous pen injector (Victoza 2-Javed) Allergies Allergy/AdvReac Type Severity Reaction Status Date / Time No Known Allergies Allergy Verified 12/18/22 13:41 Review of Systems Review of Systems: All systems reviewed & are unremarkable except as noted in HPI and below Constitutional: Constitutional: Reports no additional constitutional complaints Eyes: Eyes: Reports no additional eye complaints ENT: Reports as per HPI, Reports otalgia (Left ear) and Reports sore throat Cardiovascular: Cardiovascular: Reports no additional cardiovascular complaints, Denies chest pain and Denies dyspnea Respiratory: Respiratory: Reports no additional respiratory complaints, Denies chest congestion, Denies cough and Denies dyspnea Gastrointestinal: Gastrointestinal: Reports no additional gastrointestinal complaints, Denies abdominal pain, Denies nausea and Denies vomiting Musculoskeletal: Musculoskeletal: Reports no additional musculoskeletal complaints Integumentary/Breasts: Skin/Breast: Reports system reviewed and no additional complaints, except as docu Neurologic: Reports system reviewed and no additional complaints, except as documented Psychiatric: Psychiatric: Reports no additional psychiatric complaints Allergic/Immunologic: Allergic/Immunologic: Reports no additional allergic/immunologic complaints PMFSH Past Medical History Medical History Anxiety and depression Diabetes mellitus GERD (gastroesophageal reflux disease) HTN (hypertension) Obesity Surgical History Surgical History H/O inguinal hernia repair H/O umbilical hernia repair History of cholecystectomy Family History Family History Grandparent Heart disease Diabetes mellitus Alzheimers disease COPD (chronic obstructive pulmonary disease) Arthritis Social History Social History Smoking status: Never smoker Alcohol intake: current Alcohol use details: rare social Substance use: never Living arrangements: with family Gender identity (if verbalized by the patient): Female Comments At the time of my signature, I reviewed and agree with the nursing past medical, surgical, social, and family history. There is no relevant family history pertinent to the patient complaint. Exam Const: General: cooperative, healthy appearing, comfortable, no acute distress, well developed, alert and well nourished Nutritional Appearance: well nourished and obese Orientation/consciousness: patient oriented x3 Limitations: no limitations HENMT: Head: normal to inspection Ears: hearing grossly normal bilaterally, external ears normal, EAC's normal and TM abnormal bulging on the left and erythematous on the left Face/Nose/Sinus: Normal externa
== END 2022-12-18 14:22 | disposition home or self-care (01) ==
PROVIDERS: Emergency Provider Nurse Practitioner; PCP Family Medicine
DX: H66.92 Otitis media, unspecified, left ear (principal); E11.9 Type 2 diabetes mellitus without complications; K21.9 Gastro-esophageal reflux disease without esophagitis; I10 Essential (primary) hypertension; E66.9 Obesity, unspecified; Z68.42 Body mass index [BMI] 45.0-49.9, adult
CPT/HCPCS: 87081; 87880; 99213; G0463

== ENCOUNTER 2023-01-21 22:13 | Emergency (ER) | payer OTHER, SELFPAY ==
--- NOTE | ~2023-01-21 | CT_ITS ---
CT of the Abdomen and Pelvis: Indication: Left flank pain, fever Technique: 2.5 mm axial scans were obtained through the abdomen and pelvis following intravenous adm inistration of 100 cc of Omnipaque 350. Dose reduction technique was used on this scan by utilizing a utomated exposure control and iterative reconstruction technique. The dose-length product (DLP) was 1 485.16 mGy-cm. COMPARISON: 11/07/2022 and 07/19/2018 Findings: Scans through the lung bases are unremarkable. The liver, spleen, pancreas, left adrenal gland, and kidneys are within normal limits. Cholecystectom y clips noted. Stable 1.1 cm right adrenal nodule, indeterminate. No evidence of aortic aneurysm. No lymphadenopathy. No bowel obstruction or bowel wall thickening. There is no evidence to suggest acute appendicitis. Images through the pelvis were performed. Possible urinary bladder wall thickening versus underdisten tion. IUD in place. No adnexal mass seen. Ascites. Impression: Urinary bladder wall thickening could reflect cystitis versus possibly underdistention. Correlate cli nically. Stable 1.1 cm right adrenal nodule. Stability since 2018 is compatible with benignity. IUD in place. Reviewed, dictated and finalized at location . Impression: Urinary bladder wall thickening could reflect cystitis versus possibly underdis tention. Correlate clinically. Stable 1.1 cm right adrenal nodule. Stability since 2018 is compatible with beatrice ignity. IUD in place.
[2023-01-21 22:18] VITALS: BP 139/89; PULSE 74; RESP 18; TEMP 36.6; O2SAT 100
[2023-01-21 22:40] LABS: Basophils Absolute Auto 0.1 K/mm3 (0.0-0.1); Basophils Percent Auto 0.4 % (0.2-1.2); Eosinophils Absolute Auto 0.1 K/mm3 (0-0.3); Eosinophils Percent Auto 0.6 % (0-4.4); Hematocrit 40.8 % (37.0-47.0); Hemoglobin 13.8 g/dL (12.0-15.0); Immature Granulocyte Absolute 0.05 K/mm3 (0.00-0.031); Immature Granulocyte Percent A 0.4 % (0-0.5); Lymphocytes Absolute Auto 2.05 K/mm3 (0.9-3.2); Lymphocytes Percent Auto 17.3 % (18.3-44.2); Mean Corpuscular HGB Conc 33.8 g/dl (32-36); Mean Corpuscular Hemoglobin 28.3 pg (26-34); Mean Corpuscular Volume 83.6 fl (80-100); Mean Platelet Volume 9.9 fl (7.4-10.4); Monocytes Absolute Auto 0.8 K/mm3 (0.1-0.6); Monocytes Percent Auto 6.7 % (2.6-8.5); Neutrophils Absolute Auto 8.9 K/mm3 (1.3-6.7); Neutrophils Percent Auto 74.6 % (45.5-73.1); Platelet Count Result 250 k/mm3 (150-375); Red Blood Count 4.88 M/mm3 (4.2-5.4); Red Cell Distribution Width 12.9 % (11.5-14.5); White Blood Count 11.9 K/mm3 (4.5-10.0)
[2023-01-21 22:52] LABS: Alanine Aminotransferase 18 U/L (6-35); Albumin Level 3.9 g/dL (3.5-5.1); Alkaline Phosphatase 99 U/L (38-126); Anion Gap 7 mmol/L (8-16); Aspartate Amino Transferase 16 U/L (14-36); Blood Urea Nitrogen 10 mg/dL (7-17); Calcium 8.6 mg/dL (8.4-10.2); Carbon Dioxide 28 mmol/L (22-30); Chloride 98 mmol/L (98-107); Estimated CRCL calculation 164 ml/min; Estimated Glomerular Filt Rate > 60; Glucose 226 mg/dL (65-110); Potassium 3.7 mmol/L (3.4-5.0); Sodium 133 mmol/L (137-145)
--- NOTE | 2023-01-21 22:58 | ED.GENADULT ---
HPI - General Adult General Chief complaint: Abdominal Pain Stated complaint: flu like s/s Time Seen by Provider: 01/21/23 22:45 History of Present Illness HPI narrative: Patient is a 42-year-old female with a history of diabetes and anxiety here due to flulike symptoms x2 days. She reports body aches, generalized fatigue, sore throat and congestion. She has not taken a COVID test. Patient states that today she started developing a soreness in her left flank in addition to urinary frequency. Denies any dysuria, urgency or hematuria. No nausea or vomiting, fevers, cough, shortness of breath or chest pain. She took an ibuprofen prior to arrival. Related Data Home Medications Medication Instructions Recorded Confirmed dextroamphetamine-amphetamine ER 20 mg PO DAILY 10/28/21 12/18/22 20 mg 24hr capsule,extend release glimepiride 4 mg tablet 4 mg PO DAILY 10/28/21 12/18/22 loratadine 10 mg tablet 10 mg PO DAILY 10/28/21 12/18/22 citalopram 10 mg tablet 10 mg PO DAILY 12/18/22 12/18/22 gabapentin 600 mg tablet 600 mg PO TID 12/18/22 12/18/22 liraglutide 0.6 mg/0.1 mL (18 mg/3 0.6 mg subcut DAILY 12/18/22 12/18/22 mL) subcutaneous pen injector (Victoza 2-Javed) Allergies Allergy/AdvReac Type Severity Reaction Status Date / Time No Known Allergies Allergy Verified 01/21/23 22:13 Review of Systems Review of Systems: Gen.: Reports chills and body aches Eyes: Denies eye pain or visual change ENT: Denies congestion Respiratory: Denies shortness of breath or cough CV: Denies chest pain or palpitations GI: Reports flank pain. Denies abdominal pain nausea, emesis or diarrhea reports urinary frequency. Denies burning, urgency, frequency or hematuria Musculoskeletal: Denies back pain or muscle pain Neuro: Denies numbness, tingling, weakness or focal weakness Skin: Denies rash Except as documented, all other systems reviewed and negative [facility] Past Medical History Medical History Anxiety and depression Diabetes mellitus GERD (gastroesophageal reflux disease) HTN (hypertension) Obesity Surgical History Surgical History H/O inguinal hernia repair H/O umbilical hernia repair History of cholecystectomy Family History Family History Grandparent Heart disease Diabetes mellitus Alzheimers disease COPD (chronic obstructive pulmonary disease) Arthritis Social History Social History Smoking status: Never smoker Alcohol intake: current Alcohol use details: rare social Substance use: never Living arrangements: with family Gender identity (if verbalized by the patient): Female Exam Narrative: APPEARANCE: Well appearing, no pain in distress, well-nourished. Head: Normocephalic and atraumatic. EYES: PERRLA/EOMI, conjunctivae clear NOSE: No nasal drainage EARS: External ear normal in appearance THROAT: Oropharynx is clear. Mucous membranes are moist. NECK: Supple. No adenopathy, no masses. RESPIRATORY: Airway patent, respirations nonlabored. Clear to auscultation bilaterally, no rales, rhonchi, wheezing. CARDIOVASCULAR: Regular rate and rhythm without murmurs, rubs, or gallops. ABDOMINAL: Normoactive bowel sounds. Soft, nontender, nondistended. No rebound tenderness or guarding. MUSCULOSKELETAL: No CVAT. Extremities are warm and well-perfused. Moves all extremities well. No edema. NEURO: Normal speech. No focal neurologic deficits. SKIN: Skin is warm and dry. No rashes. PSYCHIATRIC: Normal affect/mood. Course Vital Signs Vital signs: Vital Signs Temperature 98 F 01/21/23 22:18 Pulse Rate 74 01/21/23 22:18 Respiratory Rate 18 01/21/23 22:18 Blood Pressure 139/89 01/21/23 22:18 Pulse Oximetry 100 01/21/23 22:18 Oxygen Delivery Room Air
[2023-01-21] MEDS: ACETAMINOPHEN 325 MG TABLET 650 MG PO (23:03)
[2023-01-21 23:15] LABS: Influenza A QL RT-PCR Negative (Negative); Influenza B QL RT-PCR Negative (Negative); RSV RNA, RT-PCR Negative (Negative); SARS-CoV-2 RNA PCR Negative
[2023-01-21 23:29] LABS: Appearance Urine Turbid (Clear); Bacteria Urine 4+ /hpf; Bilirubin Urine Negative (Negative); Blood Urine 3+ (Negative); Color Urine Dark Yellow (Yellow); Glucose Urine UA 3+ mg/dL (Negative); Ketones Urine Trace mg/dL (Negative); Leukocyte Esterase Ur 2+ LEU/UL (Negative); Mucus Urine Present /lpf; Nitrate Urine Positive (Negative); Protein Urine 2+ mg/dL (Negative); RBC Urine >100 /hpf (0-2); Specific Grav Ur 1.034 (1.001-1.035); Squamous Epithelial Cell Urine Occasional /hpf (Few); WBC Urine >100 /hpf
[2023-01-21 23:31] LABS: Add Urine Microscopic? YES
[2023-01-21] MEDS: SODIUM CHLORIDE 0.9% IV 1,000 ML 999 ML IV CONT (23:46)
[2023-01-22 01:56] VITALS: BP 131/69; PULSE 69; RESP 18; TEMP 36.6; O2SAT 99
== END 2023-01-22 01:57 | disposition home or self-care (01) ==
PROVIDERS: Emergency Medicine; Emergency Provider Physician Assistant; PCP Family Medicine
DX: N39.0 Urinary tract infection, site not specified (principal); I10 Essential (primary) hypertension; K21.9 Gastro-esophageal reflux disease without esophagitis; F41.9 Anxiety disorder, unspecified; F32.A Depression, unspecified; E66.9 Obesity, unspecified; Z68.42 Body mass index [BMI] 45.0-49.9, adult; Z79.85 Long-term (current) use of injectable non-insulin antidiabetic drugs; Z79.84 Long term (current) use of oral hypoglycemic drugs; Z97.5 Presence of (intrauterine) contraceptive device; E27.8 Other specified disorders of adrenal gland
CPT/HCPCS: 36415; 74177; 80053; 81001; 81025; 85025; 87077; 87086; 87088; 87186; 87637; 96365; 99284; A9270; J0696; J7030; Q9967

== ENCOUNTER 2023-04-30 18:30 | Emergency (ER) | payer OTHER, SELFPAY ==
--- NOTE | 2023-04-30 18:39 | ED.EYEPROB ---
HPI - Eye Problem General Chief complaint: Eye Problems Stated complaint: Eyes Irritation Time Seen by Provider: 04/30/23 19:15 Source: patient Mode of arrival: ambulatory Limitations: no limitations History of Present Illness HPI Narrative: Patient is a 42-year-old female who presents with right eye irritation and discharge. Patient states this started today along with a sore throat. 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 Reports she thought it was allergy related, does take Flonase and Claritin daily. Denies any fever, chills, congestion, ear pain, cough, nausea, vomiting, diarrhea. Related Data Home Medications Medication Instructions Recorded Confirmed dextroamphetamine-amphetamine ER 20 mg PO DAILY 10/28/21 12/18/22 20 mg 24hr capsule,extend release glimepiride 4 mg tablet 4 mg PO DAILY 10/28/21 12/18/22 loratadine 10 mg tablet 10 mg PO DAILY 10/28/21 12/18/22 citalopram 10 mg tablet 10 mg PO DAILY 12/18/22 12/18/22 gabapentin 600 mg tablet 600 mg PO TID 12/18/22 12/18/22 liraglutide 0.6 mg/0.1 mL (18 mg/3 0.6 mg subcut DAILY 12/18/22 12/18/22 mL) subcutaneous pen injector ([employer] 2-Javed) clonazepam 0.5 mg tablet mg 04/30/23 omeprazole 40 mg capsule,delayed mg 04/30/23 release valacyclovir 500 mg tablet mg 04/30/23 Allergies Allergy/AdvReac Type Severity Reaction Status Date / Time No Known Allergies Allergy Verified 04/30/23 18:52 Review of Systems Review of Systems: All systems reviewed & are unremarkable except as noted in HPI and below Constitutional: Constitutional: Denies body ache(s), Denies fever(s), Denies headache(s), Denies malaise and Denies weakness Eyes: Eyes: Denies blurry vision, Reports eye discharge, Reports irritation, Reports itchy eyes, Denies loss of vision and Denies eye pain ENT: Denies otalgia, Denies headache(s), Denies nasal discharge, Denies sinus pain and Reports sore throat Cardiovascular: Cardiovascular: Denies chest pain, Denies irregular heart rhythm and Denies dyspnea Respiratory: Respiratory: Denies dyspnea Gastrointestinal: Gastrointestinal: Denies abdominal pain, Denies diarrhea, Denies nausea and Denies vomiting Musculoskeletal: Musculoskeletal: Denies back pain, Denies myalgias and Denies arthralgias Integumentary/Breasts: Skin/Breast: Denies pruritus and Denies rash Neurologic: Denies headache(s), Denies loss of vision and Denies weakness Psychiatric: Psychiatric: Reports no additional psychiatric complaints Allergic/Immunologic: Allergic/Immunologic: Reports itchy eyes PMFSH Past Medical History Medical History Anxiety and depression Diabetes mellitus GERD (gastroesophageal reflux disease) HTN (hypertension) Obesity Surgical History Surgical History H/O inguinal hernia repair H/O umbilical hernia repair History of cholecystectomy Family History Family History Grandparent Heart disease Diabetes mellitus Alzheimers disease COPD (chronic obstructive pulmonary disease) Arthritis Social History Social History Smoking status: Never smoker Alcohol intake: current Alcohol use details: rare social Substance use: never Living arrangements: with family Gender identity (if verbalized by the patient): Female Comments At time of signature, agree with nursing past medical, surgical, social and family history. There is no relevant family history pertinent to the presenting complaint. Exam Const: General: cooperative, healthy appearing, comfortable, no acute distress and well nourished Nutritional Appearance: well nourished Orientation/consciousness: patient oriented x3 Limitations: no limitations HENMT: Head: normal to inspection, normocephalic and atraumatic Ears: hearing grossly
[2023-04-30 18:43] VITALS: BP 136/83; PULSE 83; RESP 14; TEMP 36.7; O2SAT 100
== END 2023-04-30 19:55 | disposition home or self-care (01) ==
PROVIDERS: Emergency Provider Nurse Practitioner Family; PCP Family Medicine
DX: H10.9 Unspecified conjunctivitis (principal); E11.9 Type 2 diabetes mellitus without complications; K21.9 Gastro-esophageal reflux disease without esophagitis; I10 Essential (primary) hypertension; E66.9 Obesity, unspecified; Z68.42 Body mass index [BMI] 45.0-49.9, adult; F41.9 Anxiety disorder, unspecified; F32.A Depression, unspecified
CPT/HCPCS: 87081; 87880; 99213; G0463

== ENCOUNTER 2024-04-21 18:47 | Emergency (ER) | payer OTHER, SELFPAY ==
[2024-04-21 19:08] VITALS: BP 144/92; PULSE 72; RESP 16; TEMP 36.6; O2SAT 99
--- NOTE | 2024-04-21 19:08 | ED.URI ---
HPI - URI/Sore Throat General Chief Complaint: Upper Respiratory Infection Stated Complaint: white lumps on tongue,throat hurts Time Seen by Provider: 04/21/24 19:08 Source: patient Mode of arrival: ambulatory Limitations: no limitations History of Present Illness HPI Narrative: 43-year-old female presents with complaint of vaginal itching, irritation for the past 7-10 days. Tried a 1 day Monistat treatment with no relief of symptoms. Since then has used a 7 day Monistat treatment with no relief. In the past has used Diflucan. Patient had recent change to her health insurance and is unable to get appointment with a primary care physician. Patient also reports Thick feeling to tongue with white patches and soreness to throat for 3-4 days. Patient takes metformin and glyburide for her diabetes. All systems reviewed and negative except as noted above. Related Data Home Medications Medication Instructions Recorded Confirmed dextroamphetamine-amphetamine ER 20 mg PO DAILY 10/28/21 04/21/24 20 mg 24hr capsule,extend release glimepiride 4 mg tablet 4 mg PO DAILY 10/28/21 04/21/24 citalopram 10 mg tablet 10 mg PO DAILY 12/18/22 04/21/24 gabapentin 600 mg tablet 600 mg PO TID 12/18/22 04/21/24 liraglutide 0.6 mg/0.1 mL (18 mg/3 0.6 mg subcut DAILY 12/18/22 04/21/24 mL) subcutaneous pen injector (Victoza 2-Javed) clonazepam 0.5 mg tablet See Rx Instructions .Route .COMPLEX 04/30/23 04/21/24 metformin 850 mg tablet 850 mg PO BID 04/21/24 04/21/24 omeprazole 40 mg capsule,delayed 40 mg PO DAILY 04/21/24 04/21/24 release Allergies Allergy/AdvReac Type Severity Reaction Status Date / Time No Known Allergies Allergy Verified 04/21/24 18:52 Review of Systems Review of Systems: CONSTITUTIONAL: Denies fever, chills, or sweats. EYES: Denies visual changes, redness, or discharge. ENT: Denies rhinorrhea, congestion . Reports sore throat, white patches to tongue. Denies otalgia. CARDIOVASCULAR: Denies chest pain, palpitations, or edema. RESPIRATORY: Denies cough or dyspnea. GASTROINTESTINAL: Denies abdominal pain, nausea, vomiting, or diarrhea. GENITOURINARY: Denies dysuria or hematuria. reports vaginal itching and irritation. SKIN: Denies rash or itching. MUSCULOSKELETAL: Denies back pain, joint pain, or myalgia. NEUROLOGIC: Denies headache, numbness, or weakness. PSYCHIATRIC: Denies anxiety or depression. All other systems reviewed are negative, except as documented in HPI. [facility] Past Medical History Medical History Anxiety and depression Diabetes mellitus GERD (gastroesophageal reflux disease) HTN (hypertension) Obesity Surgical History Surgical History H/O inguinal hernia repair H/O umbilical hernia repair History of cholecystectomy Family History Family History Grandparent Heart disease Diabetes mellitus Alzheimers disease COPD (chronic obstructive pulmonary disease) Arthritis Social History Social History Smoking status: Never smoker Alcohol intake: current Alcohol use details: rare social Substance use: never Living arrangements: with family Gender identity (if verbalized by the patient): Female Comments At time of signature, agree with nursing past medical, surgical, social and family history. There is no relevant family history pertinent to the presenting complaint. Exam Narrative: GENERAL: This is a well-nourished, well-developed patient, in no apparent distress. HEAD: normocephalic, atraumatic. EYES: PERRL. Sclera clear/white. Vision is grossly intact. EARS: External ears normal NOSE: External nose normal MOUTH: Tongue is erythematous, swollen with white patches. Mild erythema and swelling to posterior pharynx. NECK: Neck supp
== END 2024-04-21 19:25 | disposition home or self-care (01) ==
PROVIDERS: Emergency Provider Nurse Practitioner Family
DX: B37.0 Candidal stomatitis (principal); B37.31 Acute candidiasis of vulva and vagina; E11.9 Type 2 diabetes mellitus without complications; Z79.84 Long term (current) use of oral hypoglycemic drugs; K21.9 Gastro-esophageal reflux disease without esophagitis; I10 Essential (primary) hypertension; E66.9 Obesity, unspecified; Z68.41 Body mass index [BMI] 40.0-44.9, adult; F41.9 Anxiety disorder, unspecified; F32.A Depression, unspecified
CPT/HCPCS: 99213; G0463

== ENCOUNTER 2024-07-26 10:53 | Emergency (ER) | payer MEDICAID, SELFPAY ==
[2024-07-26 11:08] VITALS: BP 132/91; PULSE 70; RESP 16; TEMP 36.4; O2SAT 100
--- NOTE | 2024-07-26 11:14 | ED.URI ---
HPI - URI/Sore Throat General Chief Complaint: Upper Respiratory Infection Stated Complaint: BACK PAIN/NECK PAIN/IRRITATED THROAT/TIRED Time Seen by Provider: 07/26/24 11:06 Source: patient and RN notes reviewed Mode of arrival: ambulatory Limitations: no limitations History of Present Illness HPI Narrative: Patient presents today with a 2 day history of bilateral eye itching, body aches, fatigue, slight cough and congestion. No [id number] treatment prior to arrival. Denies any known sick contacts. Related Data Home Medications Medication Instructions Recorded Confirmed dextroamphetamine-amphetamine ER 20 mg PO DAILY 10/28/21 04/21/24 20 mg 24hr capsule,extend release glimepiride 4 mg tablet 4 mg PO DAILY 10/28/21 04/21/24 citalopram 10 mg tablet 10 mg PO DAILY 12/18/22 04/21/24 gabapentin 600 mg tablet 600 mg PO TID 12/18/22 04/21/24 liraglutide 0.6 mg/0.1 mL (18 mg/3 0.6 mg subcut DAILY 12/18/22 04/21/24 mL) subcutaneous pen injector ([employer] 2-Javed) clonazepam 0.5 mg tablet See Rx Instructions .Route .COMPLEX 04/30/23 04/21/24 metformin 850 mg tablet 850 mg PO BID 04/21/24 04/21/24 omeprazole 40 mg capsule,delayed 40 mg PO DAILY 04/21/24 04/21/24 release Allergies Allergy/AdvReac Type Severity Reaction Status Date / Time No Known Allergies Allergy Verified 07/26/24 11:06 Review of Systems Review of Systems: CONSTITUTIONAL: Denies fever, chills, or sweats.+ body aches, fatigue EYES: Denies visual changes, redness, or discharge.+ bilateral eye itching ENT: Denies rhinorrhea, sore throat, or otalgia.+ congestion CARDIOVASCULAR: Denies chest pain, palpitations, or edema. RESPIRATORY: Denies dyspnea.+ cough GASTROINTESTINAL: Denies abdominal pain, nausea, vomiting, or diarrhea. GENITOURINARY: Denies dysuria or hematuria. SKIN: Denies rash, itching, or wounds. MUSCULOSKELETAL: Denies back pain, joint pain, or myalgia. NEUROLOGIC: Denies headache, numbness, tingling, or weakness. PSYCH: Denies depression or anxiety. PMFSH Past Medical History Medical History Anxiety and depression Diabetes mellitus GERD (gastroesophageal reflux disease) HTN (hypertension) Obesity Surgical History Surgical History H/O inguinal hernia repair H/O umbilical hernia repair History of cholecystectomy Family History Family History Grandparent Heart disease Diabetes mellitus Alzheimers disease COPD (chronic obstructive pulmonary disease) Arthritis Social History Social History Smoking status: Never smoker Alcohol intake: current Alcohol use details: rare social Substance use: never Living arrangements: with family Gender identity (if verbalized by the patient): Female Comments At time of signature, I have reviewed and agree with nursing past medical, surgical, social and family history unless otherwise noted. Please see nursing chart for further information. There is no relevant family history pertinent to the presenting complaint Exam Narrative: GENERAL: Mildly ill-appearing, well-nourished, and in no acute distress. HEAD: Normocephalic, atraumatic. EYES: EOMI. No redness or drainage. Conjunctivae normal. ENT: Mucous membranes pink and moist. Nares mildly congested without rhinorrhea. TMs normal bilaterally. Tonsils 3+ bilaterally without erythema or exudate. Uvula midline. NECK: Normal AROM. Supple. No lymphadenopathy. CHEST: No respiratory distress. Clear to auscultation. HEART: Regular rate and rhythm. No murmur appreciated. EXTREMITIES: Normal range of motion. No edema. SKIN: Warm, dry, no rash. Capillary refill normal. Normal skin turgor. NEURO: No focal deficits. Alert and oriented x3. Gait steady. PSYCH: Normal affect. No sign
[2024-07-26 11:23] LABS: EDCOVIDSCREEN Negative (Negative); EDINFLUASCREEN Negative (Negative); EDINFLUBSCREEN Negative (Negative); EDSTREPNEGPOS1 Positive (Negative)
== END 2024-07-26 11:25 | disposition home or self-care (01) ==
PROVIDERS: Emergency Provider Nurse Practitioner; PCP Emergency Medicine
DX: J02.0 Streptococcal pharyngitis (principal); Z20.822 Contact with and (suspected) exposure to COVID-19; E11.9 Type 2 diabetes mellitus without complications; Z79.84 Long term (current) use of oral hypoglycemic drugs; K21.9 Gastro-esophageal reflux disease without esophagitis; I10 Essential (primary) hypertension; E66.9 Obesity, unspecified; Z68.41 Body mass index [BMI] 40.0-44.9, adult; F41.9 Anxiety disorder, unspecified; F32.A Depression, unspecified
CPT/HCPCS: 87426; 87804; 87880; 99213; G0463

== ENCOUNTER 2024-09-15 14:22 | Emergency (ER) | payer BC, SELFPAY ==
[2024-09-15] VITALS (7 sets, daily range): BP systolic 130–153; BP diastolic 76–103; PULSE 64–88; RESP 14–20; TEMP 36.6; O2SAT 100
--- NOTE | ~2024-09-15 | CT_ITS ---
EXAMINATION: CT abdomen pelvis wo con DATE: 09/15/2024 16:35 INDICATION: Intermittent right lower quadrant abdominal pain TECHNIQUE: Computed tomography (CT) of the abdomen and pelvis was performed without intravenous contr ast. Automated exposure control and iterative reconstruction technique were employed. The dose-length product was 1586.27 mGy-cm. COMPARISON: 01/21/2023 FINDINGS: Visualized lower lungs are clear. Heart size is normal. No pericardial or pleural effusion. Small sli ding-type hiatal hernia. Cholecystectomy clips the gallbladder fossa. Liver, spleen, pancreas, left a drenal glands and bilateral kidneys are normal. Unchanged 1.8 cm low-attenuation right adrenal adenom a. Mild scattered colonic diverticulosis without adjacent inflammatory stranding to suggest diverticu litis. Small bowel and appendix are normal. No bowel obstruction. Postoperative change of prior umbil ical hernia mesh repair. Bladder is normal. T-shaped IUD within the anteverted uterus. 1.9 cm left ov shellie cyst/follicle. Right adnexa is unremarkable. No free intraperitoneal gas or fluid. No pathologi nghia enlarged abdominal or pelvic lymphadenopathy. Developmental T7 butterfly vertebrae. IMPRESSION: 1. No acute intra-abdominal/pelvic process. Specifically the appendix is normal. 2. Small sliding-type hiatal hernia. 3. IUD in expected position. 4. Ventral hernia mesh repair. Reviewed, dictated and finalized at location B. HEMISTRY TEACHER IMPRESSION: 1. No acute intra-abdominal/pelvic process. Specifically the appendix is normal . 2. Small sliding-type hiatal hernia. 3. IUD in expected position. 4. Ventral hernia mesh repair.
--- NOTE | ~2024-09-15 | US_ITS ---
EXAMINATION: US pelvic complete w TV DATE: 09/15/2024 18:03 INDICATION: Right pelvic pain. TECHNIQUE: Multiple transabdominal and transvaginal sonographic images of the pelvis were obtained. COMPARISON: CT abdomen and pelvis 09/15/2024, pelvis ultrasound 07/19/2018 FINDINGS: TRANSABDOMINAL ULTRASOUND: The uterus measures 7.8 x 3.5 x 4.3 cm. There is no free fluid in the pelvis. TRANSVAGINAL ULTRASOUND: The endometrial complex measures 6 mm in thickness. There is a 3 mm uterine fibroid. There is an intr auterine device in expected position. The right ovary measures 2.5 x 1.4 x 2.2 cm. The left ovary lennie sures 3.1 x 2.1 x 2.0 cm. There is normal vascular flow in the ovaries. IMPRESSION: 1. Normal ovaries. 2. Intrauterine device in expected position. Reviewed, dictated and finalized at location A. FIC SIGNAL SUPERVISOR MAINTENANCE
[2024-09-15 15:50] LABS: Add Urine Microscopic? NO; Appearance Urine Clear (Clear); Bilirubin Urine Negative (Negative); Blood Urine Negative (Negative); Color Urine Yellow (Yellow); Glucose Urine UA 3+ mg/dL (Negative); Ketones Urine Negative (Negative); Leukocyte Esterase Ur Negative LEU/UL (Negative); Nitrate Urine Negative (Negative); Protein Urine Negative (Negative); Urobilinogen Urine 0.2 mg/dL (<2.0)
[2024-09-15 16:24] LABS: Basophils Absolute Auto 0.1 K/mm3 (0.0-0.1); Basophils Percent Auto 0.5 % (0.2-1.2); Eosinophils Absolute Auto 0.4 K/mm3 (0-0.3); Eosinophils Percent Auto 3.3 % (0-4.4); Hematocrit 44.3 % (37.0-47.0); Immature Granulocyte Absolute 0.03 K/mm3 (0.00-0.031); Immature Granulocyte Percent A 0.3 % (0-0.5); Lymphocytes Absolute Auto 2.34 K/mm3 (0.9-3.2); Lymphocytes Percent Auto 21.2 % (18.3-44.2); Mean Corpuscular HGB Conc 33.9 g/dl (32-36); Mean Corpuscular Hemoglobin 27.9 pg (26-34); Mean Corpuscular Volume 82.3 fl (80-100); Mean Platelet Volume 10.4 fl (7.4-10.4); Monocytes Absolute Auto 0.8 K/mm3 (0.1-0.6); Monocytes Percent Auto 6.8 % (2.6-8.5); Neutrophils Absolute Auto 7.5 K/mm3 (1.3-6.7); Neutrophils Percent Auto 67.9 % (45.5-73.1); Platelet Count Result 256 k/mm3 (150-375); Red Blood Count 5.38 M/mm3 (4.2-5.4); Red Cell Distribution Width 12.6 % (11.5-14.5)
[2024-09-15 16:35] LABS: Alanine Aminotransferase 11 U/L (6-35); Albumin Level 4.3 g/dL (3.5-5.1); Alkaline Phosphatase 80 U/L (38-126); Anion Gap 9 mmol/L (4-12); Aspartate Amino Transferase 14 U/L (14-36); Bilirubin,Total 0.8 mg/dL (0.2-1.3); Blood Urea Nitrogen 14 mg/dL (7-17); Calcium 9.2 mg/dL (8.4-10.2); Carbon Dioxide 26 mmol/L (22-30); Chloride 98 mmol/L (98-107); Estimated CRCL calculation 133 ml/min; Estimated Glomerular Filt Rate > 60; Glucose 308 mg/dL (65-110); Lipase 54 U/L (23-300); Potassium 4.4 mmol/L (3.4-5.0); Sodium 133 mmol/L (137-145)
[2024-09-15] MEDS: HYDROmorphone HCL INJ (*CRX) 1 MG/ML SYR 0.5 MG IV PUSH (16:39)
[2024-09-15 17:19] LABS: BEDSIDEPREGUCG Negative (Negative)
[2024-09-15 17:56] LABS: Glucose Point of Care 261 mg/dl (65-105)
--- NOTE | 2024-09-15 19:28 | ED.GENADULT ---
HPI - General Adult General Chief complaint: Abdominal Pain Stated complaint: RLQ ABD/FLANK PAIN Time Seen by Provider: 09/15/24 16:03 History of Present Illness HPI narrative: This is a 43-year-old female presenting ED with chief complaint of right-sided abdominal pain. It is primarily in the right lower quadrant. It also is associated with dull pain in her lower back. She denies fevers chills nausea vomiting or diarrhea. No chest pain difficulty breathing or urinary symptoms. Patient does not have a period since she is on Mirena. Last bowel movement was earlier today and it was normal. Related Data Home Medications Medication Instructions Recorded Confirmed insulin glargine 100 unit/mL 20 unit subcut DAILY 07/26/24 07/26/24 subcutaneous solution (Lantus U-100 Insulin) Allergies Allergy/AdvReac Type Severity Reaction Status Date / Time No Known Allergies Allergy Verified 07/26/24 11:06 [facility] Past Medical History Medical History Anxiety and depression Diabetes mellitus GERD (gastroesophageal reflux disease) HTN (hypertension) Obesity Surgical History Surgical History H/O inguinal hernia repair H/O umbilical hernia repair History of cholecystectomy Family History Family History Grandparent Heart disease Diabetes mellitus Alzheimers disease COPD (chronic obstructive pulmonary disease) Arthritis Social History Social History Smoking status: Never smoker Alcohol intake: current Alcohol use details: rare social Substance use: never Living arrangements: with family Gender identity (if verbalized by the patient): Female Exam Narrative: APPEARANCE: No apparent distress. Head: atraumatic. EYES: EOMI, NOSE: Atraumatic NECK: Trachea midline RESPIRATORY: No increased rate of breathing CARDIOVASCULAR: RRR, ABDOMINAL: Abdomen is soft nontender no guarding rebound MUSCULOSKELETAl: No obvious deformities NEURO: Alert. Moving 4/4 extremities SKIN:: Warm, dry. Normal color PSYCHIATRIC: Normal affect Course Vital Signs Vital signs: Vital Signs Temperature 97.8 F 09/15/24 14:26 Pulse Rate 73 09/15/24 14:26 Respiratory Rate 20 09/15/24 14:26 Blood Pressure 153/103 H 09/15/24 14:26 Pulse Oximetry 100 09/15/24 14:26 Oxygen Delivery Room Air 09/15/24 14:26 Temperature 97.8 F 09/15/24 14:26 Pulse Rate 70 09/15/24 19:01 Respiratory Rate 18 09/15/24 19:01 Blood Pressure 130/90 09/15/24 19:01 Pulse Oximetry 100 09/15/24 19:01 Oxygen Delivery Room Air 09/15/24 14:26 Medical Decision Making MDM Narrative Medical decision making narrative: -Course: 43-year-old female presenting with right lower quadrant pain. laboratory studies and urine without a definitive cause. CT abdomen pelvis and pelvic ultrasound both negative. Patient's pain improved in the ED. I discussed the diagnostic uncertainty at the cause of her pain. Patient will be treated with Motrin Tylenol will have close follow-up with her primary care physician. She is given return precautions for fevers, severe abdominal pain intractable nausea vomiting. Patient is agreeable with this plan. -DDX includes but is not limited to: kidney stone, appendicitis, ovarian torsion him constipation, colitis, muscle strain -Interventions: Dilaudid 0.5 mg, Toradol -Shared decision making / Disposition: discharge -RX Motrin, Tylenol Vital Signs Vital Signs: Vital Signs Temperature 97.8 F 09/15/24 14:26 Pulse Rate 73 09/15/24 14:26 Respiratory Rate 20 09/15/24 14:26 Blood Pressure 153/103 H 09/15/24 14:26 Pulse Oximetry 100 09/15/24 14:26 Oxygen Delivery Room Air 09/15/24 14:26 Temperature 97.8 F 09/15/24 14:26 Pulse Rate 70 09/15/24 19:01 Respiratory Rate 18 09/15/24 19:01 Blood Pressure 130/90 09/15/24 19:01 Pulse Oximetry 100 09/15/24 19:01 Oxygen Delivery Room Air 09/15/24 14:26 Lab Data 09/15/24 16:18 09/15/24 16:18 Labs: Lab Results 09/15/24 09/15/24 09/15/24 Range/Units 15:39 16:18 17:17 WBC 11.0 H (4.5-10.0) K/mm3 RBC 5.38 (4.2-5.4) M/mm3 Hgb 15.0 (12.0-15.0) g/dL Hct 44.3 (37.0-47.0) % MCV 82.3 (80-100) fl MCH 27.9 (26-34) pg MCHC 33.9 (32-36) g/dl RDW 12.6 (11.5-14.5) % Plt Count 256 (150-375) k/mm3 MPV 10.4 (7.4-10.4) fl Immature Gran % (Auto) 0.3 (0-0.5) % Neut % (Auto) 67.9 (45.5-73.1) % Lymph % (Auto) 21.2 (18.3-44.2) % [place] % (Auto) 6.8 (2.6-8.5) % Eos % (Auto) 3.3 (0-4.4) % Baso % (Auto) 0.5 (0.2-1.2) % Lymph # (Auto) 2.34 (0.9-3.2) K/mm3 [place] # (Auto) 0.8 H (0.1-0.6) K/mm3 Eos # (Auto) 0.4 H (0-0.3) K/mm3 Baso # (Auto) 0.1 (0.0-0.1) K/mm3 Abs Immat Gran (auto) 0.03 (0.00-0.031) K/mm3 Absolute Neuts (auto) 7.5 H (1.3-6.7) K/mm3 Absolute Nucleated RBC 0.000 (0.0-0.012) K/mm3 Nucleated RBC % 0.0 (0.0-0.2) % Sodium 133 L (137-145) mmol/L Potassium 4.4 (3.4-5.0) mmol/L Chloride 98 (98-107) mmol/L Carbon Dioxide 26 (22-30) mmol/L Anion Gap 9 (4-12) mmol/L BUN 14 (7-17) mg/dL Creatinine 0.60 L (0.7-1.0) mg/dL Estim Creat Clear Calc 133 ml/min Estimated GFR > 60 (59 - ) Glucose 308 H (65-110) mg/dL POC Capillary Glucose (65-105) mg/dl Calcium 9.2 (8.4-10.2) mg/dL Total Bilirubin 0.8 (0.2-1.3) mg/dL AST 14 (14-36) U/L ALT 11 (6-35) U/L Alkaline Phosphatase 80 (38-126) U/L Total Protein 8.0 (6.3-8.2) g/dL Albumin 4.3 (3.5-5.1) g/dL Lipase 54 (23-300) U/L Urine Color Yellow (Yellow) Urine Appearance Clear (Clear) Urine pH 7.0 (5.0-9.0) Ur Specific [place] 1.040 H (1.001-1.035) Urine Protein Negative (Negative) mg/dL Urine Glucose (UA) 3+ H (Negative) mg/dL Urine Ketones Negative (Negative) mg/dL Ur Blood (Man) Negative (Negative) Urine Nitrate Negative (Negative) Urine Bilirubin Negative (Negative) Urine Urobilinogen 0.2 (<2.0) mg/dL Leukocyte Esterase Rfl Negative (Negative) MATTHEW/UL POC Urine HCG, Qual Negative (Negative) 09/15/24 Range/Units 17:54 WBC (4.5-10.0) K/mm3 RBC (4.2-5.4) M/mm3 Hgb (12.0-15.0) g/dL Hct (37.0-47.0) % MCV (80-100) fl MCH (26-34) pg MCHC (32-36) g/dl RDW (11.5-14.5) % Plt Count (150-375) k/mm3 MPV (7.4-10.4) fl Immature Gran % (Auto) (0-0.5) % Neut % (Auto) (45.5-73.1) % Lymph % (Auto) (18.3-44.2) % [place] % (Auto) (2.6-8.5) % Eos % (Auto) (0-4.4) % Baso % (Auto) (0.2-1.2) % Lymph # (Auto) (0.9-3.2) K/mm3 [place] # (Auto) (0.1-0.6) K/mm3 Eos # (Auto) (0-0.3) K/mm3 Baso # (Auto) (0.0-0.1) K/mm3 Abs Immat Gran (auto) (0.00-0.031) K/mm3 Absolute Neuts (auto) (1.3-6.7) K/mm3 Absolute Nucleated RBC (0.0-0.012) K/mm3 Nucleated RBC % (0.0-0.2) % Sodium (137-145) mmol/L Potassium (3.4-5.0) mmol/L Chloride (98-107) mmol/L Carbon Dioxide (22-30) mmol/L Anion Gap (4-12) mmol/L BUN (7-17) mg/dL Creatinine (0.7-1.0) mg/dL Estim Creat Clear Calc ml/min Estimated GFR (59 - ) Glucose (65-110) mg/dL POC Capillary Glucose 261 H (65-105) mg/dl Calcium (8.4-10.2) mg/dL Total Bilirubin (0.2-1.3) mg/dL AST (14-36) U/L ALT (6-35) U/L Alkaline Phosphatase (38-126) U/L Total Protein (6.3-8.2) g/dL Albumin (3.5-5.1) g/dL Lipase (23-300) U/L Urine Color (Yellow) Urine Appearance (Clear) Urine pH (5.0-9.0) Ur Specific [place] (1.001-1.035) Urine Protein (Negative) mg/dL Urine Glucose (UA) (Negative) mg/dL Urine Ketones (Negative) mg/dL Ur Blood (Man) (Negative) Urine Nitrate (Negative) Urine Bilirubin (Negative) Urine Urobilinogen (<2.0) mg/dL Leukocyte Esterase Rfl (Negative) MATTHEW/UL POC Urine HCG, Qual (Negative) Discharge Plan Discharge Clinical Impression: Abdominal pain Patient Disposition: Home, Self-Care Condition: Stable Instructions: Antibiotic Form, Abdominal Pain (ED) Additional Instructions: You were seen in the emergency department for abdominal pain. This time we could not find a cause of her pain. Please follow-up with your primary care physician. If you develop severe pain fevers or any other symptoms associated with your pain you can return to the ED for evaluation. Prescriptions: New ibuprofen 800 mg tablet 800 mg PO TID PRN (Reason: pain) 7 Days Qty: 21 0RF acetaminophen 500 mg tablet 1,000 mg PO TID PRN (Reason: marvel) 7 Days Qty: 42 0RF No Action amoxicillin 875 mg tablet 875 mg PO Q12H 10 Days Qty: 20 0RF insulin glargine [Lantus U-100 Insulin] 100 unit/mL Solution 20 unit SUBCUT DAILY Follow-up/Referrals: PHYSICIAN NOT ON STAFF,NONSTAFF [Primary Care Provider] - Ilya Marcum MD [Physician] - 1 Week (Establish OB. IUD maintenance)
[2024-09-15] MEDS: KETOROLAC 15 MG/ML VIAL (*BKC) IV PUSH (19:46)
== END 2024-09-15 19:48 | disposition home or self-care (01) ==
PROVIDERS: Emergency Medicine; Emergency Provider Emergency Medicine
DX: R10.31 Right lower quadrant pain (principal); I10 Essential (primary) hypertension; E11.9 Type 2 diabetes mellitus without complications; E66.9 Obesity, unspecified; Z68.41 Body mass index [BMI] 40.0-44.9, adult; K21.9 Gastro-esophageal reflux disease without esophagitis; Z90.49 Acquired absence of other specified parts of digestive tract; Z79.4 Long term (current) use of insulin
CPT/HCPCS: 36415; 74176; 76830; 76856; 80053; 81003; 81025; 82948; 83690; 85025; 96374; 96375; 99284; J1171; J1885

== ENCOUNTER 2025-04-05 14:06 | Emergency (ER) | payer BC, SELFPAY ==
[2025-04-05 14:13] VITALS: BP 164/91; PULSE 69; RESP 16; TEMP 36.4; O2SAT 100
--- NOTE | 2025-04-05 14:19 | ED_ITS ---
HPI - URI/Sore Throat General Chief Complaint: Dizziness Stated Complaint: Sinus Time Seen by Provider: 04/05/25 14:49 Source: patient, RN notes reviewed and old records reviewed Mode of arrival: ambulatory Limitations: no limitations History of Present Illness HPI Narrative: 44-year-old female with 2 day history of a frontal headache, sinus congestion. States yesterday she had chills, nausea, diarrhea which has resolved. Today at 10:45 a.m. she became dizzy, lightheaded felt like she was going to pass out but did not. States those symptoms have resolved. Blood sugar is 197. Denies any cough, fevers. No treatment prior to arrival Related Data Home Medications ?Medication ?Instructions ?Recorded ?Confirmed ?Last Taken ?Type insulin glargine 100 unit/mL 20 unit subcut DAILY 07/26/24 07/26/24 Unknown History subcutaneous solution (Lantus U-100 Insulin) cariprazine 1.5 mg capsule mg 04/05/25 Unknown History (Vraylar) insulin glargine 100 unit/mL (3 unit subcut 04/05/25 Unknown History mL) subcutaneous pen (Lantus Solostar U-100 Insulin) metformin 500 mg tablet,extended mg PO 04/05/25 Unknown History release 24 hr omeprazole 20 mg capsule,delayed mg 04/05/25 Unknown History release prazosin 1 mg capsule mg 04/05/25 Unknown History Allergies Allergy/AdvReac Type Severity Reaction Status Date / Time No Known Allergies Allergy Verified 04/05/25 14:11 Review of Systems Review of Systems: All systems reviewed & are unremarkable except as noted in HPI and below Constitutional: Constitutional: Reports as per HPI ENT: Reports as per HPI Cardiovascular: Cardiovascular: Reports no additional cardiovascular complaints, Denies chest pain and Denies dyspnea Respiratory: Respiratory: Reports no additional respiratory complaints, Denies chest congestion, Denies cough and Denies dyspnea Musculoskeletal: Musculoskeletal: Reports no additional musculoskeletal complaints Integumentary/Breasts: Skin/Breast: Reports system reviewed and no additional complaints, except as docu PMFSH Past Medical History Medical History GERD (gastroesophageal reflux disease) Anxiety and depression Obesity Diabetes mellitus HTN (hypertension) Surgical History Surgical History H/O inguinal hernia repair H/O umbilical hernia repair History of cholecystectomy Family History Family History Grandparent Heart disease Diabetes mellitus Alzheimers disease COPD (chronic obstructive pulmonary disease) Arthritis Social History Social History Smoking status: Never smoker Alcohol intake: current Alcohol use details: rare social Substance use: never Living arrangements: with family Gender identity (if verbalized by the patient): Female Comments At the time of my signature, I reviewed and agree with the nursing past medical, surgical, social, and family history. There is no relevant family history pertinent to the patient complaint. Exam Const: General: cooperative, healthy appearing, comfortable, no acute distress, well developed, alert and well nourished Nutritional Appearance: well nourished and obese Orientation/consciousness: patient oriented x3 Limitations: no limitations HENMT: Head: normal to inspection Ears: hearing grossly normal bilaterally, external ears normal, TM's normal bilaterally, EAC's normal, mastoids normal and no periauricular adenopathy Face/Nose/Sinus: Normal nasal mucous membranes and turbinates present Face and sinus: normal facial exam, sinuses nontender and face symmetric Mouth: Yes Normal oral and palatal mucosa present, Yes lip normal, Yes tongue normal and Yes moist mucous membranes Throat: posterior oropharynx normal, uvula midline and no uvular edema Eyes: General: appearance normal, both eyes and all related structures Alignment and Position: alignment normal Neck: Neck: normal visual inspection, full ROM, no lymphadenopathy and no meningeal signs Chest: Chest palpation & inspection: normal inspection of the chest Resp: Effort & Inspection: normal respiratory effort and able to speak in complete sentences Auscultation: clear to auscultation bilaterally, no crackles, no rales, no rhonchi and no wheezes Cardio: Rate: regular rate Skin: General skin exam: normal color and no rashes or lesions noted Neuro: General: patient oriented x3, gait normal, moves all extremities and no meningeal signs Cognition (Neuro): normal cognition Speech: normal speech Gait exam (Neuro): Normal gait present Extrem: General: normal to inspection, full ROM, capillary refill normal and normal gait Psych: Appearance: grossly normal and well kempt Mental Status: mental status grossly normal Speech and movement: Normal speech and movement present and Clear speech present Affect: normal affect Attitude: cooperative Course Course Level of Care: Express Care Visit Vital Signs Vital signs: Vital Signs Temperature 97.6 F 04/05/25 14:13 Pulse Rate 69 04/05/25 14:13 Respiratory Rate 16 04/05/25 14:13 Blood Pressure 164/91 H 04/05/25 14:13 Pulse Oximetry 100 04/05/25 14:13 Oxygen Delivery Room Air 04/05/25 14:13 Temperature 97.6 F 04/05/25 14:13 Pulse Rate 69 04/05/25 14:13 Respiratory Rate 16 04/05/25 14:13 Blood Pressure 164/91 H 04/05/25 14:13 Pulse Oximetry 100 04/05/25 14:13 Oxygen Delivery Room Air 04/05/25 14:13 Reviewed MDM - URI/Sore Throat MDM Narrative Medical decision making narrative: Patient sitting in exam room patient is nontoxic, vitals are stable except blood pressure mildly elevated. Patient instructed to follow-up with primary care provider Patient with vague symptoms most likely sinus headache, URI. Patient discussed signs and symptoms to proceed to the emergency room which she verbalized understanding. Patient appropriate for outpatient treatment with close follow-up Discharge instructions reviewed with patient, as well as provided in writing per nursing staff. The instructions also include specific and strict return/GO TO THE ER as well as f/u information. All questions have been answered, and the patient deny any further questions with discharge and discharge plan. Some parts of this dictation were generated by voice recognition software and may contain typographical and/or grammatical inaccuracies. Differential Diagnosis Differential diagnosis: Likely upper respiratory infection, otitis media, sinusitis, viral infection, bronchitis, influenza and pharyngitis ECG Data EKG #1: Attestation: I personally reviewed and interpreted this ECG as follows: ECG completion date: 04/05/25 ECG completion time: 15:03 Prior ECG tracings: not available for review Interpretation: Sinus rhythm, normal EKG. Ventricular rate 65, OK interval 173, QRS duration 96. No ST elevation or depression noted. Critical Care Time Critical Care Time Critical Care Time: No Discharge Plan Discharge Clinical Impression: Sinus headache Patient Disposition: Home Condition: Stable Instructions: Antibiotic Form, Sinusitis (ED), Acute Headache (ED) Additional Instructions: Follow-up with primary care provider Take Motrin alternating with Tylenol as needed for pain Take Mucinex or other [id number] sinus medication see if symptoms are relieved. For new or worsening symptoms go directly to the emergency room Patient Language: British Prescriptions: No Action insulin glargine [Lantus U-100 Insulin] 100 unit/mL Solution 20 unit SUBCUT DAILY prazosin 1 mg capsule omeprazole 20 mg capsule,delayed release(DR/EC) metformin 500 mg tablet extended release 24 hr PO insulin glargine [Lantus Solostar U-100 Insulin] 100 unit/mL (3 mL) insulin pen SUBCUT Vraylar 1.5 mg capsule Follow-up/Referrals: PHYSICIAN,VP DELIVERY [Primary Care Provider] - Stand Alone Forms: Work/School Release IP Time of Disposition: 15:07
--- NOTE | 2025-04-05 14:56 | ECG_ITS ---
Test Date: 2025-04-05 15:03:05 Measurements Intervals [place] Rate: 65 P: 28 VT: 173 QRS: 29 QRSD: 96 T: 38 QT: 397 QTc: 413 Interpretive Statements SINUS RHYTHM DELAYED PRECORDIAL R/S TRANSITION BORDERLINE ECG No previous ECG available for comparison Electronically Signed On 04-05-2025 15:04:35 CDT by Elgin Talamantes D.O.
== END 2025-04-05 15:15 | disposition home or self-care (01) ==
PROVIDERS: Emergency Provider Nurse Practitioner
DX: R51.9 Headache, unspecified (principal); I10 Essential (primary) hypertension; E11.9 Type 2 diabetes mellitus without complications; Z79.4 Long term (current) use of insulin; K21.9 Gastro-esophageal reflux disease without esophagitis; E66.9 Obesity, unspecified; Z68.42 Body mass index [BMI] 45.0-49.9, adult
CPT/HCPCS: 93005; 99213; G0463

== ENCOUNTER 2025-07-20 12:47 | Emergency (ER) | payer BC, SELFPAY ==
--- OUTSIDE RECORDS SUMMARY | 2025-07-20 12:49 | XMS_ITS | Encounter Summary ---
Author Organization [facility] Address [address] [place] [address] Phone Care Team Providers Care Bilingual Legal Assistant Name Role Phone JohnManisha Shawn M MD Primary Care Provider [phone] Reason for Visit * Reason Comments Medication Refill Encounter Details Date Type Department Care Team ([facility] Contact Info) Description 10/23/2022 Refill [facility] - Family Medicine [facility] [address] [place] [address] Eligio Henley MD [address] [place] [address] Medication Refill Social History Tobacco Use Types Packs/Day Years Used Date Smoking Tobacco: Never Smokeless Tobacco: Never Alcohol Use Standard Drinks/Week Comments Yes 0 (1 standard drink = 0.6 oz pur e alcohol) occassionally PHQ-2 Answer Date Recorded PHQ-2 Score 0 06/29/2019 Sexually Active Control Partners Comments Not Currently I.U.D., Condom Male Comments No Sex and Gender Information Value Date Recorded Sex Assigned at Not on file Legal Sex Female 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 No / Unsure 09/24/2022 3:04 PM SENIOR PRODUCTION SUPERVISOR documented as of this encounter Miscellaneous Notes * Telephone Encounter - Rosalina Mcneil RN - 10/23/2022 11:50 AM CST PDMP 08/20/22 Medication failed the protocol, provider to review and approve the medication order if appropriate. Requested Prescriptions Pending Prescriptions Disp Refills clonazePAM (KlonoPIN) 0.5 MG Tablet [Pharmacy Med Name: CLONAZEPAM 0.5MG TABLETS] 60 Tablet 0 Sig: TAKE 1 TABLET BY MOUTH TWICE DAILY NEEDED FOR ANXIETY Not Delegated - Clonazepam Protocol Failed - 10/23/2022 10:46 AM Failed - This refill cannot be delegated Passed - Visit with relevant provider in past 12 months or upcoming 90 days Recent Visits Date Type Provider Dept 09/24/22 Office Visit Eligio Henley MD [facility] 08/25/22 Office Visit Luis Enrique Agarwal MD [facility] 07/09/22 Office Visit Luis Enrique Agarwal MD [facility] 06/22/22 Office Visit Eligio Henley MD [facility] 02/19/22 Office Visit Eligio Henley MD [facility] 01/07/22 Office Visit Iris Baron PAC [facility] [place] 11/27/21 Telemedicine Eligio Henley MD [facility] Showing recent visits within past 365 days and meeting all other requirements Future Appointments Date Type Provider Dept 12/24/22 Appointment Eligio Henley MD [facility] Showing future appointments within next 90 days and meeting all other requirements OR PRODUCTION SUPERVISOR documented in this encounter Plan of Treatment Not on file documented as of this encounter Visit Diagnoses Diagnosis Anxiety Anxiety state, unspecified documented in this encounter Additional Health Concerns Assessment Noted Time PHQ-9 Depression Total Score: 0 11/01/19 19 3:00 PM SENIOR PRODUCTION SUPERVISOR documented as of this encounter Care Teams Bilingual Legal Assistant Relationship Specialty Start Date End Date Eligio Henley MD [place] PCP - General Family Medicine 11/12/21 10/08/24 Manisha Lopez Behavioral Health Navigator 11/17/18 documented as of this encounter
--- OUTSIDE RECORDS SUMMARY | 2025-07-20 12:49 | XMS_ITS | Clinical Summary ---
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 025 2032 Active ondansetron (ZOFRAN-ODT) 4 MG disintegrating tabletIndications :Viral gastroenteritis Take 1 tablet (4 mg total) by mouth every 8 (eight) hours as needed for Nausea. 20 tablet 025 Active Continuous Glucose Micrographics Services Supervisor (FREESTYLE AURY 3 READER) DeviceIndications :Type 2 diabetes mellitus without complication, with long-term current use of insulin ([facility]) Use to check blood sugars 1 each 025 Active busPIRone (BUSPAR) 10 MG tabletIndications :VISHNU (generalized anxiety disorder) Take 1 tablet (10 mg total) by mouth 3 (three) times daily. 270 tablet 1 025 Active Insulin Pen Needle (PEN NEEDLES) 31G X 6 MM MiscIndications:T ype 2 diabetes mellitus without complication, with long-term current use of insulin ([facility]) Use daily with insulin 200 each 3 025 Active omeprazole (PRILOSEC) 20 MG capsuleIndication s:Gastroesophagea l reflux disease, unspecified whether esophagitis present Take 1 capsule (20 mg total) by mouth daily. 90 capsule 3 025 2025 Active valACYclovir (VALTREX) 500 MG tabletIndications :Genital herpes simplex, unspecified site Take 1 tablet (500 mg total) by mouth daily. 14 tablet 1 Active Continuous Glucose Sensor (FREESTYLE AURY 3 SENSOR) MiscIndications:T ype 2 diabetes mellitus without complication, with long-term current use of insulin ([facility]) Replace every 2 weeks to check blood sugar 2 each 5 Active cariprazine (VRAYLAR) 3 MG capsuleIndication s:Moderate episode of recurrent major depressive disorder ([facility]) Take 1 capsule (3 mg total) by mouth daily. 90 capsule 3 025 2025 Active insulin glargine (LANTUS SOLOSTAR) 100 UNIT/ML injection (PEN)Indications: Type 2 diabetes mellitus without complication, with long-term current use of insulin ([facility]) Inject 70 Units into the skin nightly at bedtime. 60 mL Active prazosin (MINIPRESS) 2 MG capsuleIndication s:VISHNU (generalized anxiety disorder),PTSD (post-traumatic stress disorder) Take 1 capsule (2 mg total) by mouth nightly at bedtime. 90 capsule 3 025 2025 Active metFORMIN ER (GLUCOPHAGE-XR) 500 MG 24 hr tabletIndications :Type 2 diabetes mellitus without complication, without long-term current use of insulin ([facility]) Take 1 tablet (500 mg total) by mouth 2 (two) times a day. 180 tablet 025 Active tirzepatide (MOUNJARO) 2.5 MG/0.5ML injectionIndicati ons:Diabetes Mellitus Inject 2.5 mg into the skin every 7 days. Indications: Diabetes 3 mL 025 Active TRULICITY 0.75 MG/0.5ML injectionIndicati ons:Type 2 diabetes mellitus without complication, with long-term current use of insulin ([facility]) INJECT 0.75MG SUBCUTANEOUSLY ONCE WEEKLY 4 mL 025 Active hydrOXYzine (ATARAX) 25 MG tabletIndications :VISHNU (generalized anxiety disorder) Take 1 tablet (25 mg total) by mouth 3 (three) times daily as needed for Itching. 30 tablet 025 2024 dulaglutide (TRULICITY) 0.75 MG/0.5ML injectionIndicati ons:Per Dr Centeno. This has been approved [id number] Inject 0.75 mg into the skin once a week. Indications: Per Dr Centeno. This has been approved [id number] 3 mL 025 2024 Discontinued Active Problems Problem Noted Date Diagnosed Date Gastroesophageal reflux dise ase, unspecified whether esophagitis present 01/22/2025 Overview (01/22/2025): New symptoms since starting GLP-1. Significant belching and epigastric discomfort. Assessment & Plan (01/22/2025 11:06 AM CDT): Discussed this is a typical side effect with GLP-1's. We will see if she tolerates a different GLP-1 better. In the meantime she will start some omeprazole to try to manage symptoms. Genital herpes 12/21/2024 Overview (12/21/2024): Takes valtrex ppx. Type 2 diabetes mellitus wit hout complication, with long-term current use of insulin ([facility]) 12/21/2024 Overview (06/18/2025): A1c to 9.9% in 02/2025 down from 11% in August. Historically not controlled. On metformin. Rybelsus discontinued for indigestion. Metformin at the low-dose tolerated but higher doses because loose stools. - The patient suspects that Victoza induces nausea and gastrointestinal upset, leading to a reduction in administration to every other day. - She struggles with glycemic control, noting fasting blood glucose levels exceeding 200 mg/dL in the past month, compared to previous levels of 60-70 mg/dL. - She has not trialed Trulicity. - Occasional episodes of hypoglycemia are reported, with the lowest recorded level being 50 mg/dL, typically associated with missed meals. - The patient admits to stress-induced eating behaviors. - An ophthalmologic examination is scheduled for next month due to changes in vision, including increased blurriness. - Current diabetic management includes Lantus 60 units nightly and metformin 500 mg daily. Assessment & Plan (06/18/2025 2:33 PM CDT): A1c 8.5% on 07/2023, down from 9.9% in 02/2023 and 11% in 08/2022. - Increase insulin from 60 units to 70 units. - Increase metformin to 500 mg twice daily. - Discontinue Victoza due to side effects, initiate Trulicity 0.75 mg weekly. - If issues with Trulicity, consider switch to Ozempic. Assessment & Plan (03/13/2025 10:00 AM CDT): Not controlled. Trending in the right direction. Increase Basaglar to 46 units daily. Reiterated instructions for home titration every 3 days. Continue Victoza. She will increase the dose again in an additional 2 weeks. Follow-up in 2 months to revisit blood sugars. Assessment & Plan (02/23/2025 10:20 AM CDT): Not controlled though is improved. Increase Basaglar to 20 units daily and increase Victoza to 1.2 mg daily. After 1 month she will increase to 1.8 mg daily. Provided titration schedule for insulin so she can adjust based on her CGM blood sugar levels while fasting. Requested 2-week interval follow-up to ensure that she has appropriate management. Assessment & Plan (01/22/2025 11:05 AM CDT): Not yet controlled. Did not tolerate Rybelsus. Will trial Victoza and work up on dosing while continuing metformin for now. May need to consider holding metformin to see if it is causing loose stools. We will also initiate insulin in 2 weeks to try to accelerate diabetes control. She will start Lantus 10 units daily if her blood sugars remain 200s and 2 weeks after starting Victoza. Assessment & Plan (12/21/2024 11:09 AM EPIC AMBULATORY ANALYST): A1c 11%. Not controlled. Will restart metformin 500 mg daily. Also will start Ozempic 0.25 mg weekly and increase to 0.5 mg after 1 month. Ordered routine labs. Discussed dietary changes. Foot exam 12/21/2024. VISHNU (generalized anxiety disorder) 12/21/2024 Overview (06/18/2025): Reports her anxiety has been quite high. She would like to start managing her symptoms. We had discussed using a mood stabilizer but with her blood sugars being so elevated would prefer to wait until we have better control. - The current pharmacotherapy for anxiety and depression, including Vraylar and buspirone, has proven ineffective, resulting in a decline in mental health status. - The patient reports persistent anxiety, characterized by a sensation of a knot in the stomach upon waking and sleeping, suicidal ideation without intent, anxiety-related dreams, panic attacks with occasional syncope, poor sleep quality, and chronic fatigue. - Lorazepam was previously effective in managing symptoms, while lithium therapy resulted in paresthesia. Assessment & Plan (06/18/2025 2:33 PM CDT): Severe. - Referral to psychiatry for further management. - Prescribe hydroxyzine as needed for anxiety, caution advised against driving until effects are understood. - Trial higher prazosin 2 mg qhs for nightmares, possible PTSD Assessment & Plan (02/23/2025 10:21 AM CDT): Not controlled. Trial increase BuSpar to 10 mg 3 times daily. Encouraged her to eliminate social media and go for routine walks. She will see if EAP is an option Assessment & Plan (01/22/2025 11:06 AM CDT): Will initiate BuSpar 5 mg twice daily until we can initiate a mood stabilizer possibly next visit. Depression, major, recurrent 12/21/2024 Overview (06/18/2025): Had previously tried lithium. Tried fluoxetine but doesn't recall a change. Tried lexapro, citalopram. Now taking Vraylar. Reports improvement in depression symptoms. Notes increase in nightmares and anxiety. Reports history of trauma. See anxiety details Assessment & Plan (06/18/2025 2:33 PM CDT): Severe. PHQ9 score of 26. - Referral to psychiatry for further management. - Increase Vraylar to 3 mg. Assessment & Plan (03/13/2025 10:01 AM CDT): 03/13/2025 9:39 AM PHQ-9 Score Patient Health Questionnaire-9 Score 22 Improving but not yet controlled. Will continue to monitor for improvements while on Vraylar. Trauma with nightmares and flashbacks. Will trial prazosin to help manage this. Assessment & Plan (02/23/2025 10:21 AM CDT): Not controlled. Significant symptoms, severe. Will trial Vraylar 1.5 mg daily. Failed multiple other medications in the past. Assessment & Plan (12/21/2024 11:10 AM EPIC AMBULATORY ANALYST): Not controlled. Ideally would like to start medication. Unfortunately I suspect she will need a mood stabilizer but this will likely drive up blood sugars. Will address in 1 month for follow-up after blood sugars are better controlled. Primary localized osteoarthritis of right knee 0 07/10/2024 Overview (03/13/2025): She did see rheumatology in 2023. She had a positive TOMMIE but they did not diagnose her with lupus and thought she could perhaps develop rheumatoid arthritis in the future. She was encouraged to continue with OTC. She reports that her right MCP joints are bothering her. Assessment & Plan (03/13/2025 10:02 AM CDT): Not controlled. Trial meloxicam 7.5 mg daily. Encouraged her not to combine with any other NSAIDs. Restless leg syndrome 05/14/2021 Seasonal allergic rhinitis due to pollen 019 Class 3 severe obesity due t o excess calories with serious comorbidity and body mass index (BMI) of 45.0 to 49.9 in adult 11/02/2018 Morbidly obese 07/05/2013 Assessment & Plan (12/21/2024 11:09 AM EPIC AMBULATORY ANALYST): Discussed dietary and lifestyle changes. Encounters Date Type Department Care Team Description 06/18/2025 2:00 PM CDT Office Visit [address] [place] [address] Krystin Cash MD Follow Up (DM/2 mo ck ) 06/18/[address] [place] [address] Krystin Cash MD Medication 06/18/2025 Travel 05/28/[address] [place] [address] Krystin Cash MD Medication Information from Last 3 Months Immunizations Immunization Administration Dates Next Due Hepatitis A (Generic) 09/22/2016,08/13/2016 Hepatitis A/Hepatitis B(Twinrix) 09/22/2016,07/26 Influenza Adult (Generic) 07/09/2022,12/09/2018, 07/08/2017,08/13/2016 Pneumococcal (Pneumovax 23) 12/23/2016 Pneumococcal (Prevnar 20) 12/21/2024 Tdap (Generic) 08/13/2016 Family History Medical History Relation Comments Arthritis Maternal Grandmother She had rhu metoid (sp?) Suicidality Mother Relation Status Comments Brother Alive Father Unknown Maternal Grandmother Mother Social History Tobacco Use Types Packs/Day Years Used Date Smoking Tobacco: Former Cigarettes Passive Smoke Exposure: Past Smokeless Tobacco: Never Tobacco Cessation:Counseling Given: Yes Comments:Vaped for 3 years 06/18/25 restarted vaping again Alcohol Use Standard Drinks/Week Comments Not Currently 0 (1 standard drink = 0.6 oz pur e alcohol) Not enough to answer PHQ-2 Answer Date Recorded Patient Health Questionnaire-2 Score 6 06/18/2025 Comments No Sex and Gender Information Value Date Recorded Sex Assigned at Female 12/30/2024 1:17 PM EPIC AMBULATORY ANALYST Legal Sex Female 7:16 PM CDT Gender Identity Female 02/23/2025 9:36 AM CDT Sexual Orientation Not on file Last Filed Vital Signs Vital Sign Reading Time Taken Comments Blood Pressure 130/80 06/18/2025 2:01 PM CDT Pulse 63 06/18/2025 2:01 PM CDT Temperature 36.8 C (98.3 F) 06/18/2025 2:01 PM CDT Respiratory Rate 18 02/23/2025 9:38 AM CDT Oxygen Saturation 100% 06/18/2025 2:01 PM CDT Inhaled Oxygen Concentration - - Weight 126.6 kg (279 lb 3.2 oz) 06/18/2025 2:01 PM CDT Height 165.1 cm (5' 5) 06/18/2025 2:01 PM CDT Body Mass Index 46.46 06/18/2025 2:01 PM CDT Plan of Treatment Upcoming Encounters Date Type Department Care Team (Late st Contact Info) Description 08/02/2025 1:00 PM CDT Office Visit [facility] - [place] [address] [facility] [address] [place] [address] [phone] Krystin Cash MD [address] [place] [address] [phone] Health Maintenance Due Date Last Done Comments Diabetes: Retinopathy Eye Exam 1998 Hepatitis C 1998 HPV Vaccines (1 - 3-dose SCDM series) 2007 Cervical Cancer Screening Pap Smear (Age 30 to 64) Every 3 Years 07/25/2016 07/25/2013 Hepatitis B Vaccines (3 of 3 - Hep B Twinrix 3-dose series) 02/20/2017 09/22/2016, 08/13/2016 Cervical Cancer Screening Pap with HPV Testing (Age 30 to 64) Every 5 Years 07/25/2018 07/25/2013 Cervical Cancer Screening with HPV 07/25/2018 COVID-19 Vaccine ( season) 2025 01/29/2021 Hemoglobin A1C 12/19/2025 06/18/2025, 05/0 11/2024, 12/21/2024, Additional history exists Annual Physical 12/21/2025 12/21/2024 Kidney Health Evaluation 12/21/2025 12/21/2024 Lipid Panel 12/21/2025 12/21/2024 DTaP, Tdap and Td Vaccines (2 - Td or Tdap) 08/13/2026 08/13/2016 Mammogram Screening 12/30/2026 12/30/2024, 3 Pneumococcal Vaccine: Pediatrics (0 to 5 Years) and At-Risk Patients (6 to 49 Years) Completed 12/21/2024, 12/23/2016 PHQ-2 (Physician [place]) Completed 06/18/2025 Meningococcal B Vaccine Aged Out No l onger eligible based on patient's age to complete this topic Meningococcal Vaccine Aged Out No corby otto eligible based on patient's age to complete this topic RSV Immunizations Under 20 Months Aged Out No longer eligible based on patient's age to complete this topic Procedures Procedure Name Priority Date/Time Associated Diagnosis Comments COLLECT.CAPILLARY (FNGR,HEEL,EAR) Routine 06/18/2025 1:58 PM CDT Type 2 diabetes mellitus without complication, without long-term current use of insulin ([facility]) HEMOGLOBIN, GLYCOSYLATED Routine 06/18/2025 Type 2 diabetes mellitus without complication, without long-term current use of insulin ([facility]) MG SCREENING W SHRUTI ZINA DIGI Routine 12/30/2024 1:44 PM EPIC AMBULATORY ANALYST Encounter for mammogram to establish baseline mammogram LIPID PANEL Routine 12/21/2024 10:24 AM EPIC AMBULATORY ANALYST Type 2 diabetes mellitus without complication, without long-term current use of insulin ([facility]) from Last 3 Months or Most Recently Relevant to Health Maintenance Results * HEMOGLOBIN, GLYCOSYLATED (06/18/2025) HGB A1C 8.5 % [address], [place] 06/18/2025 us Krystin Cash MD LABORATORY Final Re sult [address] [place] [address] [place] [address], [place] [phone] * MG SCREENING W SHRUTI ZINA DIGI (12/30/2024 1:44 PM EPIC AMBULATORY ANALYST) Anatomical Region Laterality Modality Breast Bilateral Mammography 01/03/2025 3:04 PM CDT Impressions 01/03/2025 3:06 PM CDT ===== IMPRESSION: ===== 1. Stable mammographic appearance with no new findings to suggest malignancy in either breast. Assessment: ACR BI-RADS 2 - BENIGN FINDING(S) Recommendation: 1:Routine Screening Bilateral Comments: Ordered By: KRYSTIN CASH Interpreted By: Anjelica Voss, 01/03/2025 3:04 PM Narrative 01/03/2025 3:06 PM CDT [address] [phone] EXAMINATION: Digital bilateral screening mammogram with 3-D tomosynthesis EXAM DATE/TIME: 12/30/2024 1:20 PM REASON FOR EXAM: Routine screening COMPARISON: 04/15/2023 Technique: Digital screening mammography of both breasts was performed in addition to 3-D Tomosynthesis technique. This study was read with the assistance of a computer-aided detection system. Tissue density: There are scattered areas of fibroglandular density. Findings: There is no new focal asymmetry, dominant mass lesion, area of skin thickening, or cluster of suspicious appearing calcifications in either breast to suggest malignancy. us Krystin Cash MD MAMMO Final Re sult * LIPID PANEL (12/21/2024 10:24 AM EPIC AMBULATORY ANALYST) CHOLESTEROL 152 <200 MG/DL 12/21/2024 3:39 PM EPIC AMBULATORY ANALYST -[facility] TRIGLYCERIDES 85 <150 MG/DL 12/21/2024 3:39 PM EPIC AMBULATORY ANALYST [facility] HDL 43 >40 MG/DL 12/21/2024 3:39 PM EPIC AMBULATORY ANALYST [facility] LDL-C 92 <100 MG/DL 12/21/2024 3:39 PM EPIC AMBULATORY ANALYST [facility] [place] VLDL CALCULATION 17 5 - 28 MG/DL 12/21/2024 3:39 PM EPIC AMBULATORY ANALYST [facility] [place] CHOL/HDL RATIO 3.5 0.0 - 4.0 12/21/2024 3:39 PM EPIC AMBULATORY ANALYST [facility] [place] LDL/HDL 2.1 0.41 - 2.13 12/21/2024 3:39 PM EPIC AMBULATORY ANALYST [facility] [place] NON HDL CHOLESTEROL 109 <140 MG/DL 12/21/2024 3:39 PM EPIC AMBULATORY ANALYST [facility] [place] 12/21/2024 10:2 4 AM EPIC AMBULATORY ANALYST Krystin Cash MD LABORATORY Final Re sult [facility] [place] [address] [place] [id number], from Last 3 Months or Most Recently Relevant to Health Maintenance Insurance [facility] C/O [employer]ER [employer] [id number] Care Teams Earthmoving Plant Operator Relationship Specialty Start Date End Date Krystin Cash MD [address] [place] [phone] PCP - General FAMILY PRACTICE 12/21/24
--- OUTSIDE RECORDS SUMMARY | 2025-07-20 12:49 | XMS_ITS | Encounter Summary ---
Author Organization [facility] Address [address] [place] [address] Phone Care Team Providers Care Landscape Architect Name Role Phone Eligio Henley MD Primary Care Provider [phone] Manisha Lopez Christin P APN, [facility] Primary Care Pro vider Eligio Henley MD Primary Care Provider [phone] Reason for Visit * Reason Comments Medication Refill Encounter Details Date Type Department Care Team (Late st Contact Info) Description 10/15/[address] 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 No / Unsure 09/16/2020 3:27 PM MANAGER FIELD SALES documented as of this encounter Miscellaneous Notes * Telephone Encounter - EwaLinnetterossi Ramirez RN - 10/16/2020 8:37 AM CST Medication failed the protocol, provider to review and approve the medication order if appropriate. Requested Prescriptions Pending Prescriptions Disp Refills clonazePAM (KlonoPIN) 0.5 MG Tablet [Pharmacy Med Name: CLONAZEPAM 0.5MG TABLETS] 60 Tab 0 Sig: TAKE 1 TABLET BY MOUTH TWICE DAILY NEEDED FOR ANXIETY Not Delegated - Psychiatry: Anxiolytics - clonazepam Failed - 10/15/2020 4:12 PM Failed - This refill cannot be delegated Passed - Valid encounter within last 6 months Past Office Visits Recent Outpatient Visits 2 months ago Acute pain of right knee [facility] - Eligio Bailey MD 7 months ago Anxiety [facility] Eligio Bailey MD 11 months ago Type 2 diabetes mellitus with hypoglycemia without coma, without long-term current use of insulin ([facility]) [facility] Eligio Owens MD 1 year ago Arthralgia, unspecified joint [facility] Eligio Owens MD 1 year ago Bipolar 1 disorder (HCC) [facility] Eligio Owens MD Upcoming Appointments TABULAR TYPIST - Recent and Past Visits Recent Visits Date Type Provider Dept 08/09/20 Office Visit Eligio Henley MD [facility] 03/19/20 Telemedicine Eligio Henley MD [facility] 11/21/19 Office Visit Eligio Henley MD [facility] 08/09/19 Office Visit Eligio Henley MD [facility] Showing recent visits within past 460 days with a meds authorizing provider and meeting all other requirements Future Appointments No visits were found meeting these conditions. Showing future appointments within next 90 days with a meds authorizing provider and meeting all other requirements omeprazole (PriLOSEC) 40 MG CAPSULE DELAYED RELEASE [Pharmacy Med Name: OMEPRAZOLE 40MG CAPSULES] 90 Cap 3 Sig: TAKE ONE CAPSULE BY MOUTH DAILY Gastroenterology: Antiulcer - Proton Pump Inhibitors Passed - 10/15/2020 4:12 PM Passed - Valid encounter within last 12 months Past Office Visits Recent Outpatient Visits 2 months ago Acute pain of right knee [facility] Eligio Bialey MD 7 months ago Anxiety [facility] Eligio Bailey MD 11 months ago Type 2 diabetes mellitus with hypoglycemia without coma, without long-term current use of insulin ([facility]) [facility] Eligio Owens MD 1 year ago Arthralgia, unspecified joint [facility] Eligio Owens MD 1 year ago Bipolar 1 disorder ([facility]) [facility] Eligio Owens MD Upcoming Appointments TABULAR TYPIST - Recent and Past Visits Recent Visits Date Type Provider Dept 08/09/20 Office Visit Eligio Henley MD [facility] 03/19/20 Telemedicine Eligio Henley MD [facility] 11/21/19 Office Visit Eligio Henley MD [facility] 08/09/19 Office Visit Eligio Henley MD [facility] Showing recent visits within past 460 days with a meds authorizing provider and meeting all other requirements Future Appointments No visits were found meeting these conditions. Showing future appointments within next 90 days with a meds authorizing provider and meeting all other requirements zolpidem (AMBIEN) 10 MG Tablet [Pharmacy Med Name: ZOLPIDEM 10MG TABLETS] 30 Tab 0 Sig: TAKE 1 TABLET BY MOUTH EVERY NIGHT NEEDED FOR SLEEP Not Delegated - Psychiatry: Anxiolytics/Hypnotics Failed - 10/15/2020 4:12 PM Failed - This refill cannot be delegated Passed - Valid encounter within last 6 months Past Office Visits Recent Outpatient Visits 2 months ago Acute pain of right knee [facility] Eligio Bailey MD 7 months ago Anxiety [facility] Eligio Owens MD 11 months ago Type 2 diabetes mellitus with hypoglycemia without coma, without long-term current use of insulin ([facility]) [facility] Eligio Owens MD 1 year ago Arthralgia, unspecified joint [facility] Eligio Owesn MD 1 year ago Bipolar 1 disorder ([facility]) [facility] Eligio Bailey MD Upcoming Appointments TABULAR TYPIST - Recent and Past Visits Recent Visits Date Type Provider Dept 08/09/20 Office Visit Eligio Henley MD [facility] 03/19/20 Telemedicine Eligio Henley MD [facility] 11/21/19 Office Visit Eligio Henley MD [facility] 08/09/19 Office Visit Eligio Henley MD [facility] Showing recent visits within past 460 days with a meds authorizing provider and meeting all other requirements Future Appointments No visits were found meeting these conditions. Showing future appointments within next 90 days with a meds authorizing provider and meeting all other requirements meloxicam (MOBIC) 7.5 MG Tablet [Pharmacy Med Name: MELOXICAM 7.5MG TABLETS] 90 Tab 3 Sig: TAKE 1 TABLET BY MOUTH DAILY Analgesics: COX2 Inhibitors Passed - 10/15/2020 4:12 PM Passed - Valid encounter within last 6 months Past Office Visits Recent Outpatient Visits 2 months ago Acute pain of right knee [facility] Eligio Owens MD 7 months ago Anxiety [facility] Eligio Owens MD 11 months ago Type 2 diabetes mellitus with hypoglycemia without coma, without long-term current use of insulin ([facility]) [facility] Eligio Owens MD 1 year ago Arthralgia, unspecified joint [facility] Eligio Owens MD 1 year ago Bipolar 1 disorder (HCC) [facility] Eligio Owens MD Upcoming Appointments TABULAR TYPIST - Recent and Past Visits Recent Visits Date Type Provider Dept 08/09/20 Office Visit Eligio Henley MD [facility] 03/19/20 Telemedicine Eligio Henley MD [facility] 11/21/19 Office Visit Eligio Henley MD [facility] 08/09/19 Office Visit Eligio Henley MD [facility] Showing recent visits within past 460 days with a meds authorizing provider and meeting all other requirements Future Appointments No visits were found meeting these conditions. Showing future appointments within next 90 days with a meds authorizing provider and meeting all other requirements GER FIELD SALES documented in this encounter Plan of Treatment Not on file documented as of this encounter Visit Diagnoses Diagnosis Moderate episode of recurrent major depressive disorder- Primary Anxiety Anxiety state, unspecified documented in this encounter Additional Health Concerns Assessment Noted Time PHQ-9 Depression Total Score: 0 11/01/19 3:00 PM MANAGER FIELD SALES documented as of this encounter Care Teams Landscape Architect Relationship Specialty Start Date End Date Eligio Henley MD PCP - General Family Medicine 11/01/18 11/04/21 Kayy Waldrop APN, MARINE ENGINE MECHANIC [place] [place] [address] PCP - General Advanced Practice Nurse 11/05/21 11/11/21 Eligio Henley MD PCP - General Family Medicine 11/12/21 10/08/24 Manisha Lopez Behavioral Health Navigator 11/17/18 documented as of this encounter
--- OUTSIDE RECORDS SUMMARY | 2025-07-20 12:49 | XMS_ITS | Encounter Summary ---
Author Organization [facility] Address [address] [place] [address] Phone Care Team Providers Care Extension Work Instructor Name Role Phone Eligio Henley MD Primary Care Provider [phone] Manisha Lopez Christin P APN, [facility] Primary Care Pro vider Eligio Henley MD Primary Care Provider [phone] Reason for Visit * Reason Comments Medication Refill Encounter Details Date Type Department Care Team (Late st Contact Info) Description 03/24/2021 Refill [facility] - Family Medicine [facility] [address] [place] [address] Eligio Henley MD [address] [place] [address] Medication Refill Social History Tobacco Use Types [...] on file Legal Sex Female 4:02 AM COOKER SYRUP Gender Identity Not on file Sexual Orientation Not on file Occupation Industry Job Start Date Job End Date 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 Not on file Not on file Not on file documented as of this encounter Plan of Treatment Not on file documented as of this encounter Visit Diagnoses Diagnosis Bipolar 1 disorder Bipolar I disorder, most recent episode (or current) unspecified Anxiety Anxiety state, unspecified documented in this encounter Additional Health Concerns Assessment Noted Time PHQ-9 Depression Total Score: 0 11/01/19 3:00 PM COOKER SYRUP documented as of this encounter Care Teams Extension Work Instructor Relationship Specialty Start Date End Date Eligio Henley MD PCP - General Family Medicine 11/01/18 11/04/21 Kayy Waldrop, INSULATION TECHNICIAN, SHIPPING SUPPORT CLERK [facility] [place] [address] PCP - General Advanced Practice Nurse 11/05/21 11/11/21 Eligio Henley MD PCP - General Family Medicine 11/12/21 10/08/24 Manisha Lopez Behavioral Health Navigator 11/17/18 documented as of this encounter
--- OUTSIDE RECORDS SUMMARY | 2025-07-20 12:49 | XMS_ITS | Encounter Summary ---
Author Organization [facility] Address [address] [place] [address] Phone Care Team Providers Care Chief Mechanical Engineer Name Role Phone Manisha Lopez Shawn M MD Primary Care Provider [phone] Reason for Visit * Reason Comments Medication Refill Encounter Details Date Type Department Care Team (Late st Contact Info) Description 03/04/2024 Refill [facility] [address] [place] [address] Eligio Henley MD [address] [place] [address] Medication Refill Social History Tobacco Use Types [...] on file Legal Sex Female 4:02 AM HAM MARKER Gender Identity Not on file Sexual Orientation Not on file 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 documented in this encounter Plan of Treatment Not on file documented as of this encounter Visit Diagnoses Diagnosis Type 2 diabetes mellitus with hypoglycemia without coma, without long-term current use of insulin documented in this encounter Additional Health Concerns Assessment Noted Time PHQ-9 Depression Total Score: 0 11/01/19 19 3:00 PM HAM MARKER documented as of this encounter Care Teams Chief Mechanical Engineer Relationship Specialty Start Date End Date Eligio Henley MD [place] PCP - General Family Medicine 11/12/21 10/08/24 Manisha Lopez Behavioral Health Navigator 11/17/18 documented as of this encounter
--- OUTSIDE RECORDS SUMMARY | 2025-07-20 12:49 | XMS_ITS | Clinical Summary ---
Author Organization [facility] Address [address] [place] [address] Phone Care Team Providers Care Ski Technician Name Role Phone Manisha Lopez Unavailable Unavailable Allergies No known active allergies Medications Blood Glucose Monitoring Suppl Device Diagnosis: Diabetes type 2 Blood testing frequency: daily 1 Each 11/03/19 19 Active levonorgestrel (MIRENA) 20 MCG/24HR IUD 08/23/20 17 Active valACYclovir (VALTREX) 500 MG Tablet TK 1 T PO QD 08/01/20 20 Active Insulin Pen Needle (PEN NEEDLES 31GX5/16) 31G X 8 MM Misc As Instructed 30 Each 4 06/25/20 21 Active OneTouch Verio Strip USE DIRECTED ONCE DAILY 50 Strip 3 01/07/20 23 Active clonazePAM (KlonoPIN) 0.5 MG TabletIndications :Anxiety Take 1 Tablet by mouth 2 times daily as needed for Anxiety. Sixty 60 Tablet 07/01/20 23 Active methylphenidate (METADATE ER) 20 MG Tablet Controlled ReleaseIndication s:Attention deficit hyperactivity disorder (ADHD), combined type Take 1 Tablet by mouth daily. 30 Tablet 07/01/20 23 Active polyethylene glycol (MiraLax) 17 GM/SCOOP PowderIndications :Constipation, unspecified constipation type Take 17 g by mouth daily. 17 g = 1 scoop. Dissolve in 4 -8 oz of water or other liquid. 850 g 3 07/01/20 23 Active zolpidem (AMBIEN) 10 MG TabletIndications :Moderate episode of recurrent major depressive disorder Take 1 Tablet by mouth nightly as needed for Sleep. 30 Tablet 07/01/20 23 Active cyclobenzaprine (FLEXERIL) 10 MG TabletIndications :Muscle spasm Take 1 Tablet by mouth 3 times daily as needed for Muscle spasms. 90 Tablet 07/01/20 23 Active metroNIDAZOLE (METROGEL) 0.75 % GelIndications:Ot her rosacea Apply 2 times daily. Face 45 g 2 07/01/20 23 Active metFORMIN (GLUCOPHAGE) 850 MG TabletIndications :Type 2 diabetes mellitus with hypoglycemia without coma, without long-term current use of insulin Take 1 Tablet by mouth 2 times daily (with meals). 180 Tablet 1 07/01/20 23 Active glimepiride (AMARYL) 4 MG TabletIndications :Type 2 diabetes mellitus with hypoglycemia without coma, without long-term current use of insulin Take 1 Tablet by mouth 2 times daily. 180 Tablet 3 07/01/20 23 Active liraglutide (Victoza) 18 MG/3ML Solution Pen-injector 1.8 mg by Subcutaneous route daily. 18 mL 1 07/01/20 23 Active citalopram (CeleXA) 20 MG Tablet Take 1 Tablet by mouth daily. 90 Tablet 07/01/20 23 Active loratadine (CLARITIN) 10 MG Tablet Take 1 Tablet by mouth daily. 90 Tablet 1 07/01/20 23 Active omeprazole (PriLOSEC) 40 MG CAPSULE DELAYED RELEASE Take 1 Capsule by mouth daily. 90 Capsule 3 07/01/20 23 Active minocycline (MINOCIN, DYNACIN) 100 MG Capsule Take 1 Capsule by mouth daily. 90 Capsule 3 07/01/20 23 Active fluticasone (FLONASE) 50 MCG/ACT Suspension SHAKE LIQUID AND USE 2 SPRAYS IN EACH NOSTRIL DAILY DIRECTED 48 g 07/02/20 23 Active Active Problems Problem Noted Date Diagnosed Date Other rosacea 12/30/2021 Chronic prescription benzodiazepine use 05/14/20 Chronic prescription opiate use 05/14/2021 Restless leg syndrome 05/14/2021 Depression 03/06/2019 Anxiety 02/06/2019 Overview (02/06/2019): pt reports hourly anxiety Hoarseness or changing voice 02/06/2019 Arthralgia 02/06/2019 Seasonal allergic rhinitis due to pollen 019 Bipolar 1 disorder 12/09/2018 Right anterior knee pain 11/02/2018 Type 2 diabetes mellitus wit h hypoglycemia without coma, without long-term current use of insulin 11/02/2018 Muscle spasm 11/02/2018 Sleep disturbance 11/02/2018 Class 3 severe obesity due t o excess calories with serious comorbidity and body mass index (BMI) of 45.0 to 49.9 in adult 11/02/2018 Pain in pelvis 08/16/2018 Uses contraception 07/20/2017 Dysfunctional uterine bleeding 12/27/2014 Resolved Problems Problem Noted Date Diagnosed Date Resolved Date Acute bilateral low back marvel n without sciatica 05/14/2021 11/27/2021 Febrile illness, acute 11/01/201811/02 Vulvovaginitis latanya albicans 07/25/2013 03/07/2019 Immunizations Immunization Administration Dates Next Due Covid-19 Vaccine, Vector-nr, Rs-ad26, Pf, 0.5 Ml ([employer]/J[employer]plista) 01/29/2021 Hepatitis A And Hepatitis B Vaccine 09/22/2016,1 Influenza Vaccine, Quadrivalent, PF 07/09/2022,0 12/09/2018 Influenza, Injectable, Quadrivalent 07/08/2017,1 Pneumococcal Vaccine Adult - 23 Valent 7 TDAP Vaccine 08/13/2016 Social History Tobacco Use Types Packs/Day Years Used Date Smoking Tobacco: Never Smokeless Tobacco: Never Tobacco Cessation:Counseling Given: Yes Alcohol Use Standard Drinks/Week Comments Yes 0 (1 standard drink = 0.6 oz pur e alcohol) occassionally PHQ-2 Answer Date Recorded PHQ-2 Score 0 06/29/2019 Sexually Active Control Partners Comments Not Currently I.U.D., Condom Male Comments No Sex and Gender Information Value Date Recorded Sex Assigned at Not on file Legal Sex Female 4:02 AM PEDIATRIC NURSE Gender Identity Not on file Sexual Orientation Not on file 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 on file Not on file Not on file Last Filed Vital Signs Vital Sign Reading Time Taken Comments Blood Pressure 110/76 07/01/2023 12:59 PM CDT Pulse 74 07/01/2023 12:59 PM CDT Temperature 37 C (98.6 F) 07/01/2023 12:59 PM CDT Respiratory Rate 16 07/01/2023 12:59 PM CDT Oxygen Saturation 99% 07/01/2023 12:59 PM CDT Inhaled Oxygen Concentration - - Weight 129.3 kg (285 lb) 07/01/2023 12:59 PM CDT Height 165.1 cm (5' 5) 07/01/2023 12:59 PM CDT Body Mass Index 47.43 07/01/2023 12:59 PM CDT Plan of Treatment Health Maintenance Due Date Last Done Comments Diabetes: Eye Exam 1980 Human Papillomavirus (HPV) Immunization (1 - 3-dose SCDM series) 2007 HPV/Cotest 2010 Hepatitis B Immunization (3 of 3 - Hep B Twinrix 3-dose series) 02/20/2017 09/22/2016, 08/13/2016 Pneumococcal Immunization Combined (2 of 2 - PCV) 12/23/2017 12/23/2016 Diabetes: Foot Exam 11/21/2020 11/21/2019, 11/21/2019, 11/21/2019 Diabetes: Nephropathy Screening 05/23/2023 05/23/2022, 05/08/2021, 08/09/2019 Diabetes: Hemoglobin A1c 12/30/2023 023, 09/24/2022, 06/22/2022, Additional history exists Mammogram 04/15/2024 04/15/2023 Influenza Immunization (#1) 06/25/202506/25, 12/09/2018, 07/08/2017, Additional history exists Td Immunization Every 10 Years (Adults With 1 Tdap) 08/13/2026 08/13/2016 Cervical Cancer Screening (CCS) 09/22/2026 Pap Smear 09/22/2026 09/22/2021, 08/15/2018 Respiratory Syncytial Virus (RSV) Immunization (Adult) (1 - 1-dose 75+ series) 2055 SARS-COV-2 Immunization Discontinued 01/29/2021 Hepatitis C Virus (HCV) Screening Completed 08/11/2021 Discussion re Starting/Frequency of Mammograms Completed 04/15/2023 Meningococcal Immunization (ACWY) Aged Out No longer eligible based on patient's age to complete this topic Rotavirus Immunization Aged Out No lo nger eligible based on patient's age to complete this topic Procedures Procedure Name Priority Date/Time Associated Diagnosis Comments POCT GLYCOSYLATED HEMOGLOBIN Routine 07/01/2023 1:23 PM CDT Type 2 diabetes mellitus with hypoglycemia without coma, without long-term current use of insulin (HCC) [facility] SCREENING BILATERAL DIGITAL W CAD W SHRUTI Routine 04/15/2023 3:24 PM CDT Encounter for screening mammogram for malignant neoplasm of breast CMP (COMPREHENSIVE METABOLIC PANEL) 05/23/2022 12:00 AM CDT from Last 3 Months or Most Recently Relevant to Health Maintenance Results * (ABNORMAL) POCT GLYCOSYLATED HEMOGLOBIN (07/01/2023 1:23 PM CDT) HGB-A1C 11.4(A) 4 - 6 % Blood 07/01/2023 1:23 PM CDT Eligio Henley MD POINT OF CARE TESTING (MANUAL) F inal Result * [facility] SCREENING BILATERAL DIGITAL W CAD W SHRUTI (04/15/2023 3:24 PM CDT) Anatomical Region Laterality Modality breast Bilateral Mammography 04/15/2023 3:20 PM CDT Narrative 04/16/2023 8:53 AM CDT - [facility] SCREENING BILATERAL DIGITAL W CAD W SHRUTI BILATERAL DIGITAL SCREENING MAMMOGRAM 3D/2D WITH CAD WITH MEDIOLATERAL OBLIQUE CRANIOCAUDAL: 04/15/2023 The study was acquired using digital technology and interpreted from soft copy. Current study was also evaluated with ICAD version 7.2. 2D digital mammographic views, as well as 3D digital tomosynthesis were performed in the CC and MLO projections. CLINICAL: Baseline screening. Patient has no complaints. No personal history of cancer. No family history of breast cancer. COMPARISONS: No prior exams were available for comparison. BREAST TISSUE:There are scattered fibroglandular densities in both breasts. FINDINGS: There is a benign intramammary node in the right breast. No significant masses, calcifications, or other findings are seen in either breast. IMPRESSION: BI-RAD 2 BENIGN There is no mammographic evidence of malignancy. A 1 year screening mammogram is recommended. A letter will be sent to the patient with these results. The patient will be entered into a reminder system with a target due date of 1 year for her next screening exam. Electronically signed by: Jonn degroot/penrad:04/15/2023 19:53:37 Centralized Traffic Control Operator(s): DAY Gomes)(M), [facility] letter sent: Normal Exam Reading location: [facility] BI-RADS: 2 Benign Procedure Note Jonn Cunningham MD - 04/16/2023 - [facility] SCREENING BILATERAL DIGITAL W CAD W SHRUTI BILATERAL DIGITAL SCREENING MAMMOGRAM 3D/2D WITH CAD WITH MEDIOLATERAL OBLIQUE CRANIOCAUDAL: 04/15/2023 The study was acquired using digital technology and interpreted from soft copy. Current study was also evaluated with [employer] version 7.2. 2D digital mammographic views, as well as 3D digital tomosynthesis were performed in the CC and MLO projections. CLINICAL: Baseline screening. Patient has no complaints. No personal history of cancer. No family history of breast cancer. COMPARISONS: No prior exams were available for comparison. BREAST TISSUE:There are scattered fibroglandular densities in both breasts. FINDINGS: There is a benign intramammary node in the right breast. No significant masses, calcifications, or other findings are seen in either breast. IMPRESSION: BI-RAD 2 BENIGN There is no mammographic evidence of malignancy. A 1 year screening mammogram is recommended. A letter will be sent to the patient with these results. The patient will be entered into a reminder system with a target due date of 1 year for her next screening exam. Electronically signed by: Jonn degroot/penrad:04/15/2023 19:53:37 Centralized Traffic Control Operator(s): RT Eliseo(Bettye)(M), [facility] letter sent: Normal Exam Reading location: [facility] BI-RADS: 2 Benign us Damion Pinon APRN, AUTO BODY MECHANIC IMG MAMMO ORDERA BLES Final Result * CMP (COMPREHENSIVE METABOLIC PANEL) (05/23/2022 12:00 AM CDT) 05/23/2022 us Not On File Provider CHEMISTRY ORDERABLES Final Result SCAN from Last 3 Months or Most Recently Relevant to Health Maintenance Insurance [employer] Care Teams Ski Technician Relationship Specialty Start Date End Date Manisha Lopez Behavioral Health Navigator 11/17/18
--- OUTSIDE RECORDS SUMMARY | 2025-07-20 12:49 | XMS_ITS | Clinical Summary ---
Author Organization [facility] Address [address] [place] [address] Care Team Providers Care Psychiatric Social Worker Supervisor Name Role Phone Eligio Henley MD Primary Care Provider [phone] Source Comments [facility],non-owned Affiliates and Associated Physician Practices is amultiple site organization consisting of ambulatory clinics and hospital sitesin [place], [place], [place] and [place]. This disclosure is being madepursuant to the Care Everywhere program and may not contain all information available regarding this patient. Last updated 18.[facility] Allergies No known active allergies Medications * Be aware that medications may not be up to date on this document. Alwaysverify current medications with the patient. levonorgestrel (MIRENA, 52 MG,) 20 MCG/24HR IUD 1 (one) device by Intrauterine route as directed Active Alcohol Swabs (HM STERILE ALCOHOL PREP) PADS U QD UTD 10 8 Active ONETOUCH VERIO test strip 8 Active One Touch Delica Lancets TEST ONCE D UTD 10 8 Active loratadine (CLARITIN) 10 MG tablet Take 1 (one) tablet by mouth as needed 3 8 Active valACYclovir HCl (VALTREX PO) Active metroNIDAZOLE (METROGEL) 0.75 % gelIndications: Other rosacea Apply to face twice daily. 30 days supply. 45 g 2 2 Active vitamin D, ergocalciferol, (Drisdol) 1.25 MG (50701 UT) capsule TAKE 1 CAPSULE BY MOUTH ONCE EVERY WEEK 4 Active Lantus SoloStar pen ADMINISTER 10 UNITS UNDER THE SKIN AT BEDTIME 4 Active B-D ULTRAFINE III SHORT PEN 31G X 8 MM needle USE IT ONCE DAILY 4 Active simvastatin (Zocor) 20 MG tablet TAKE 1 TABLET BY MOUTH DAILY IN THE EVENING 4 Active Active Problems Problem Noted Date Diagnosed Date Primary localized osteoarthritis of right knee 0 07/10/2024 Overview (07/10/2024): Might consider use of duloxetine for right knee degenerative arthritis pain (prior relief with tramadol). Follow up with PCP for possible orthopedic surgery. Acne rosacea, erythematous telangiectatic type 0 12/30/2021 Morbidly obese 07/05/2013 Resolved Problems Problem Noted Date Diagnosed Date Resolved Date Vulvovaginitis latanya albicans 07/25/2013 07/10/2024 Irregular periods 07/05/2013 07/10/2024 Family History Medical History Relation Name Comments Arthritis Maternal Grandmother Diabetes Maternal Grandmother Heart Failure Maternal Grandmother Relation Name Status Comments Maternal Grandmother Social History Tobacco Use Types Packs/Day Years Used Date Smoking Tobacco: Never Smokeless Tobacco: Never Alcohol Use Standard Drinks/Week Comments Yes 0 (1 standard drink = 0.6 oz pur e alcohol) Comments No Sex and Gender Information Value Date Recorded Sex Assigned at Not on file Legal Sex Female 2:59 PM CDT Gender Identity Not on file Sexual Orientation Not on file Last Filed Vital Signs Vital Sign Reading Time Taken Comments Blood Pressure 116/70 07/10/2024 9:12 AM CDT Pulse 82 07/10/2024 9:12 AM CDT Temperature 36.7 C (98 F) 07/10/2024 9:12 AM CDT Respiratory Rate 16 07/10/2024 9:12 AM CDT Oxygen Saturation 98% 07/10/2024 9:12 AM CDT Inhaled Oxygen Concentration - - Weight 122.5 kg (270 lb) 07/10/2024 9:12 AM CDT Height 165.1 cm (5' 5) 07/10/2024 9:12 AM CDT Body Mass Index 44.93 07/10/2024 9:12 AM CDT Plan of Treatment Health Maintenance Due Date Last Done Comments DTAP/TDAP/TD VACCINES (1 - Tdap) 1999 HEPATITIS B VACCINE (1 of 3 - 19+ 3-dose series) 1999 HPV VACCINE (1 - 3-dose SCDM series) 2007 PAP with HPV 07/25/2018 07/25/2013 SCREENING FOR DIABETES 07/10/2024 DEPRESSION SCREENING 10/25/2024 MAMMOGRAM 04/15/2025 04/15/2023, 04/15/2023 COVID-19 VACCINE (2 - season) 2025 01/29/2021 INFLUENZA VACCINE (#1) 2025 , 12/09/2018, 07/08/2017, Additional history exists ZOSTER VACCINE (1 of 2) 2030 HEPATITIS C SCREENING Completed 01/03/2021 , 01/03/2021, 01/03/2021 HIV SCREENING Completed 01/03/2021 HIB VACCINE Aged Out No longer eligi ble based on patient's age to complete this topic MENINGOCOCCAL (Group B) VACCINE SHARED DECISION-MAKING Aged Out No longer eligible based on patient's age to complete this topic MENINGOCOCCAL GROUPS A/C/Y/W VACCINE Aged Out No longer eligible based on patient's age to complete this topic PNEUMOCOCCAL VACCINE Aged Out No long er eligible based on patient's age to complete this topic Procedures Procedure Name Priority Date/Time Associated Diagnosis Comments PAP IG LB+HPV HR RFLX 16,18 Routine 07/25/2013 3:20 PM CDT Cervical cancer screening from Last 3 Months or Most Recently Relevant to Health Maintenance Results * PAP SMEAR IG HPV HR RFLX 16/18 (PO REF LAB) (07/25/2013 3:20 PM CDT) Diagnosis [facility] INSURANCE BILL Comment: NEGATIVE FOR INTRAEPITHELIAL LESION AND MALIGNANCY. REACTIVE CELLULAR CHANGES AND/OR REPAIR ARE PRESENT. Specimen Adequacy [facility] INSURANCE BILL Comment: Satisfactory for evaluation. Endocervical and/or squamous metaplastic cells (endocervical component) are present. Areas of partially obscuring blood are present. Clinician Provided ICD9 [facility] INSURANCE BILL Comment: 112.1 ; Candidiasis of vulva and vagina 626.9 ; Unspecified disorder of menstruation and other abnormal bleeding from female genital tract V76.2 ; Screening for malignant neoplasm of the cervix Performed by [facility] INSURANCE BILL Comment:Bandar Trivedi , Vp Corporate Development (ASCP) Electronically Signed by [facility] INSURANCE BILL Comment:Jill Augustin MD, P athologist Comment . [facility] INSURANCE BILL Note [facility] INSURANCE BILL Comment: The Pap smear is a screening test designed to aid in the detection of premalignant and malignant conditions of the uterine cervix. It is not a diagnostic procedure and should not be used as the sole means of detecting cervical cancer. Both false-positive and false-negative reports do occur. . [facility] CPT Code [employer] [facility] INSURANCE BILL Comment: This liquid based ThinPrep(R) pap test was screened with the use of an image guided system. Human papillomavirus High Risk Negative Negative [facility] INSURANCE BILL Comment: This high-risk HPV test detects thirteen high-risk types (16/18/31/33/35/39/45/51/52/56/58/59/68) without differentiation. . MICROSCOPIC CYTOLOGIC EXAMINATION OF SMEAR OF SPECIMEN FROM FEMALE GENITAL TRACT PREPARED USING PAPANICOLAOU TECHNIQUE / Unknown 07/25/2013 3:20 PM CDT 07/26/2013 2:41 AM CDT Narrative [facility] INSURANCE BILL - 07/31/2013 8:06 PM CDT No. of containers..01 CYTYC Thin Prep Vial Resulting Agency Comment [address] [phone] Barbara Sharma DO LAB - PATHOLOGY/CYTOLO GY ORDERABLES Final Result [facility] INSURANCE BILL [address] [place] [address] from Last 3 Months or Most Recently Relevant to Health Maintenance Insurance MEDICAID - [place] [facility] Care Teams Psychiatric Social Worker Supervisor Relationship Specialty Start Date End Date Eligio Henley MD PCP - General 11/03/18
--- OUTSIDE RECORDS SUMMARY | 2025-07-20 12:49 | XMS_ITS | Encounter Summary ---
Author Organization [facility] Address [address] [place] [address] Phone Care Team Providers Care Front Office Associate Name Role Phone Eligio Henley MD Primary Care Provider [phone] Manisha Lopez Christin P APN, [facility] Primary Care Pro vider Eligio Henley MD Primary Care Provider [phone] Reason for Visit * Reason Comments Medication Refill Encounter Details Date Type Department Care Team (Late st Contact Info) Description 12/31/2020 Refill [facility] - Family Medicine [facility] [address] [place] [address] Eligio Henley MD [address] [place] [address] Medication Refill Social History Tobacco Use Types [...] on file Legal Sex Female 4:02 AM RAZOR GRINDER Gender Identity Not on file Sexual Orientation Not on file 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 Last OV 07/30/20, F/U None, Last Rx per [place] PD[place] Review 10/20/20 Maggie THOMPSON Requested Prescriptions Pending Prescriptions Disp Refills traMADol (ULTRAM) 50 MG Tablet [Pharmacy Med Name: TRAMADOL 50MG TABLETS] 120 Tablet 0 Sig: TAKE 1 TABLET BY MOUTH EVERY 6 HOURS NEEDED FOR MODERATE TO SEVERE PAIN Not Delegated - Analgesics: Opioid Agonists Failed - 12/31/2020 1:00 PM Failed - This refill cannot be delegated Passed - Valid encounter within last 6 months Past Office Visits Recent Outpatient Visits 4 months ago Acute pain of right knee [facility] - Eligio Bailey MD 9 months ago Anxiety [facility] Eligio Owens MD 1 year ago Type 2 diabetes mellitus with hypoglycemia without coma, without long-term current use of insulin (HCC) [facility] Eligio Owens MD 1 year ago Arthralgia, unspecified joint [facility] Eligio Owens MD 1 year ago Bipolar 1 disorder (HCC) [facility] Eligio Owens MD Upcoming Appointments [facility] - Recent and Past Visits Recent Visits Date Type Provider Dept 08/09/20 Office Visit Eligio Henley MD [facility] 03/19/20 Telemedicine Eligio Henley MD [facility] 11/21/19 Office Visit [facility] Showing recent visits within past 460 days with a meds authorizing provider and meeting all other requirements Future Appointments No visits were found meeting these conditions. Showing future appointments within next 90 days with a meds authorizing provider and meeting all other requirements R GRINDER documented in this encounter Plan of Treatment Not on file documented as of this encounter Visit Diagnoses Diagnosis Arthralgia, unspecified joint documented in this encounter Additional Health Concerns Assessment Noted Time PHQ-9 Depression Total Score: 0 11/01/19 19 3:00 PM RAZOR GRINDER documented as of this encounter Care Teams Front Office Associate Relationship Specialty Start Date End Date Eligio Henley MD PCP - General Family Medicine 11/01/18 11/04/21 Kayy Waldrop, ENAMEL MACHINE OPERATOR, TANK PUMPER [address] [place] [address] PCP - General Advanced Practice Nurse 11/05/21 11/11/21 Eligio Henley MD PCP - General Family Medicine 11/12/21 10/08/24 Manisha Lopez Behavioral Health Navigator 11/17/18 documented as of this encounter
--- OUTSIDE RECORDS SUMMARY | 2025-07-20 12:49 | XMS_ITS | Encounter Summary ---
Author Organization [facility] Address [address] [place] [address] Phone Care Team Providers Care Intern Retail Name Role Phone Eligio Henley MD Primary Care Provider Manisha Lopez Christin P APN, [facility] Primary Care Pro vider Eligio Henley MD Primary Care Provider [phone] Reason for Visit * Reason Comments Medication Refill Encounter Details Date Type Department Care Team (Late st Contact Info) Description 04/20/2021 Refill [facility] Medical Group - Family Medicine [facility] [address] [place] [address] Eligio Henley MD [address] [place] [address] Medication Refill Social History Tobacco Use Types [...] on file Legal Sex Female 4:02 AM HOSE TENDER Gender Identity Not on file Sexual Orientation Not on file 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 Requested Prescriptions Pending Prescriptions Disp Refills metFORMIN (GLUCOPHAGE) 850 MG Tablet [Pharmacy Med Name: METFORMIN 850MG TABLETS] 180 Tablet 1 Sig: TAKE 1 TABLET BY MOUTH TWICE DAILY WITH MEALS Biguanides Protocol Failed - 04/20/2021 12:01 PM Failed - Visit with relevant provider in past 6 months or upcoming 90 days Recent Visits No visits were found meeting these conditions. Showing recent visits within past 182 days and meeting all other requirements Future Appointments No visits were found meeting these conditions. Showing future appointments within next 90 days and meeting all other requirements Failed - HgA1C on record in past 6 months HGB-A1C Date Value Ref Range Status 08/09/2019 9.3 (H) 4.0 - 6.0 % Final Failed - GFR on record in past 6 months GFR, EST. NONAFRICAN Date Value Ref Range Status 08/09/2019 >60 >=60 Final documented in this encounter Plan of Treatment Not on file documented as of this encounter Visit Diagnoses Diagnosis Type 2 diabetes mellitus with hypoglycemia without coma, without long-term current use of insulin documented in this encounter Additional Health Concerns Assessment Noted Time PHQ-9 Depression Total Score: 0 11/01/19 19 3:00 PM HOSE TENDER documented as of this encounter Care Teams Intern Retail Relationship Specialty Start Date End Date Eligio Henley MD PCP - General Family Medicine 11/01/18 11/04/21 Kayy Waldrop APN, SALES SERVICE COORDINATOR [address] [place] [address] PCP - General Advanced Practice Nurse 11/05/21 11/11/21 Eligio Henley MD PCP - General Family Medicine 11/12/21 10/08/24 Manisha Lopez Behavioral Health Navigator 11/17/18 documented as of this encounter
--- OUTSIDE RECORDS SUMMARY | 2025-07-20 12:50 | XMS_ITS | Encounter Summary ---
Author Organization [facility] Address [address] [place] [address] Phone Care Team Providers Care Shoemaker Custom Name Role Phone Eligio Henley MD Primary Care Provider [phone] Manisha Lopez Christin P APN, [facility] Primary Care Pro vider Eligio Henley MD Primary Care Provider [phone] Reason for Visit * Reason Comments Medication Refill Encounter Details Date Type Department Care Team (Late st Contact Info) Description 06/24/2021 Refill [facility] Medical Group - Family Medicine [facility] [address] [place] [address] Eligio Henley MD [address] [place] [address] Medication Refill Social History Tobacco Use Types [...] on file Legal Sex Female 4:02 AM LOAN SERVICE OFFICER Gender Identity Not on file Sexual Orientation Not on file 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 Requested Prescriptions Pending Prescriptions Disp Refills traMADol (ULTRAM) 50 MG Tablet [Pharmacy Med Name: TRAMADOL 50MG TABLETS] 120 Tablet Sig: TAKE 1 TABLET BY MOUTH EVERY 6 HOURS NEEDED FOR MODERATE TO SEVERE PAIN [facility] Not Delegated - Analgesics: Opioid Agonists Failed - 06/25/2021 12:20 PM Failed - This refill cannot be delegated Passed - Valid encounter within last 6 months Past Office Visits Recent Outpatient Visits 1 month ago Arthralgia, unspecified joint [facility] Eligio Bailey MD 10 months ago Acute pain of right knee [facility] Eligio Owens MD 1 year ago Anxiety [facility] Eligio Owens MD 1 year ago Type 2 diabetes mellitus with hypoglycemia without coma, without long-term current use of insulin ([facility]) [facility] Eligio Owens MD 1 year ago Arthralgia, unspecified joint [facility] Eligio Owens MD Upcoming Appointments Future Appointments In 1 month Eligio Henley MD [facility] Recent and Past Visits Recent Visits Date Type Provider Dept 05/08/21 Office Visit Eligio Henley MD [facility] 08/09/20 Office Visit Eligio Henley MD [facility] Showing recent visits within past 460 days with a meds authorizing provider and meeting all other requirements Future Appointments Date Type Provider Dept 08/13/21 Appointment Eligio Henley MD [facility] Showing future appointments within next 90 days with a meds authorizing provider and meeting all other requirements clonazePAM (KlonoPIN) 0.5 MG Tablet [Pharmacy Med Name: CLONAZEPAM 0.5MG TABLETS] 60 Tablet Sig: TAKE 1 TABLET BY MOUTH TWICE DAILY NEEDED FOR ANXIETY [facility] Not Delegated - Psychiatry: Anxiolytics - clonazepam Failed - 06/25/2021 12:20 PM Failed - This refill cannot be delegated Passed - Valid encounter within last 6 months Past Office Visits Recent Outpatient Visits 1 month ago Arthralgia, unspecified joint [facility] Eligio Bailey MD 10 months ago Acute pain of right knee [facility] Eligio Bailey MD 1 year ago Anxiety [facility] Eligio Owens MD 1 year ago Type 2 diabetes mellitus with hypoglycemia without coma, without long-term current use of insulin ([facility]) [facility] Eligio Bailey MD 1 year ago Arthralgia, unspecified joint [facility] Eligio Bailey MD Upcoming Appointments Future Appointments In 1 month Eligio Henley MD [facility] - Recent and Past Visits Recent Visits Date Type Provider Dept 05/08/21 Office Visit Eligio Henley MD [facility] 08/09/20 Office Visit Eligio Henley MD [facility] Showing recent visits within past 460 days with a meds authorizing provider and meeting all other requirements Future Appointments Date Type Provider Dept 08/13/21 Appointment Eligio Henley MD [facility] Showing future appointments within next 90 days with a meds authorizing provider and meeting all other requirements zolpidem (AMBIEN) 10 MG Tablet [Pharmacy Med Name: ZOLPIDEM 10MG TABLETS] 30 Tablet Sig: TAKE 1 TABLET BY MOUTH EVERY NIGHT NEEDED FOR SLEEP There is no refill protocol information for this order Refused Prescriptions Disp Refills FLUoxetine (PROZAC) 40 MG Capsule [Pharmacy Med Name: FLUOXETINE 40MG CAPSULES] 90 Capsule 2 Sig: TAKE ONE CAPSULE BY MOUTH DAILY SSRI (6 Month Refill Only) Protocol Passed - 06/25/2021 12:20 PM Passed - No test in the past 12 months or most recent test was negative Passed - No active on record Passed - Visit with relevant provider in past 6 months or upcoming 90 days Recent Visits Date Type Provider Dept 05/08/21 Office Visit Eligio Henley MD [facility] Showing recent visits within past 182 days and meeting all other requirements Future Appointments Date Type Provider Dept 08/13/21 Appointment Eligio Henley MD [facility] Showing future appointments within next 90 days and meeting all other requirements Passed - Patient has established therapy with SSRI for at least 6 months Passed - Has an encounter in the past 6 months with a depression, anxiety, adjustment disorder, OCD, or PTSD visit diagnosis * Telephone Encounter - Rosalina Mcneil RN - 06/25/2021 12:20 PM CDT FLUoxetine (PROZAC) 40 MG Capsule 90 Capsule 2 03/03/2021 Sig - Route: Take 1 Capsule by mouth daily. - Oral Sent to pharmacy as: FLUoxetine HCl 40 MG Oral Capsule (PROZAC) Class: E Prescribe E-Prescribing Status: Receipt confirmed by pharmacy (03/03/2021 ??9:37 AM CDT) Order Questions ?? FLUoxetine (PROZAC) 40 MG Capsule [[id number]] 5 Status: Active Ordering user: Eligio Henley MD 03/03/21935 Authorized by: Eligio Henley MD Frequency: Daily 03/03/21 - Until Discontinued Released by: Eligio Henley MD 03/03/21935 Diagnoses Bipolar 1 disorder (HCC) [F31.9] Anxiety [F41.9] Associated Diagnoses Bipolar 1 disorder (HCC) Anxiety [id number] - [place], [place] - [address] [place] [address] AT [facility] [address] documented in this encounter Plan of Treatment Not on file documented as of this encounter Visit Diagnoses Diagnosis Arthralgia, unspecified joint Anxiety Anxiety state, unspecified Moderate episode of recurrent major depressive disorder Bipolar 1 disorder Bipolar I disorder, most recent episode (or current) unspecified documented in this encounter Additional Health Concerns Assessment Noted Time PHQ-9 Depression Total Score: 0 11/01/19 19 3:00 PM LOAN SERVICE OFFICER documented as of this encounter Care Teams Shoemaker Custom Relationship Specialty Start Date End Date Eligio Henley MD PCP - General Family Medicine 11/01/18 11/04/21 Kayy Waldrop, SUPERVISOR PUMPING STATION, IMMIGRATION MANAGER [facility] [place] [address] PCP - General Advanced Practice Nurse 11/05/21 11/11/21 Eligio Henley MD PCP - General Family Medicine 11/12/21 10/08/24 Manisha Lopez Behavioral Health Navigator 11/17/18 documented as of this encounter
--- OUTSIDE RECORDS SUMMARY | 2025-07-20 12:50 | XMS_ITS | Encounter Summary ---
Author Organization [facility] Address [address] [place] [address] Phone Care Team Providers Care Fork Operator Name Role Phone Eligio Henley MD Primary Care Provider [phone] Manisha Lopez Christin P APN, [facility] Primary Care Pro vider Eligio Henley MD Primary Care Provider [phone] Reason for Visit * Reason Comments Medication Refill Encounter Details Date Type Department Care Team (Late st Contact Info) Description 08/10/2021 Refill [facility] - Family Medicine [facility] [address] [place] [address] Eligio Henley MD [address] [place] [address] Medication Refill Social History Tobacco Use Types [...] on file Legal Sex Female 4:02 AM CRYPTOLOGIC 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 No / Unsure 08/11/2021 4:06 PM CDT documented as of this encounter Miscellaneous Notes * Telephone Encounter - Rosalina Mcneil RN - 08/11/2021 1:39 PM CDT [place] 06/25/21 Clonazepam & Tramadol Medication failed the protocol, provider to review and approve the medication order if appropriate. Requested Prescriptions Pending Prescriptions Disp Refills clonazePAM (KlonoPIN) 0.5 MG Tablet [Pharmacy Med Name: CLONAZEPAM 0.5MG TABLETS] 60 Tablet 0 Sig: TAKE 1 TABLET BY MOUTH TWICE DAILY NEEDED FOR ANXIETY healthfinch Not Delegated - Psychiatry: Anxiolytics - clonazepam Failed - 08/11/2021 1:39 PM Failed - This refill cannot be delegated Passed - Valid encounter within last 6 months Past Office Visits Recent Outpatient Visits 3 months ago Arthralgia, unspecified joint [facility] Eligio Owens MD 1 year ago Acute pain of right knee [facility] Eligio Owens MD 1 year ago Anxiety [facility] Eligio Owens MD 1 year ago Type 2 diabetes mellitus with hypoglycemia without coma, without long-term current use of insulin (HCC) [facility] Eligio Owens MD 2 years ago Arthralgia, unspecified joint [facility] Eligio Owens MD Upcoming Appointments Future Appointments In 2 days [facility] EXPERIMENTAL PREFLIGHT MECHANIC - Recent and Past Visits Recent Visits Date Type Provider Dept 05/08/21 Office Visit Eligio Henley MD [facility] 08/09/20 Office Visit [facility]ligio Hen[facility] [place] [facility] [place] Showing recent visits within past 460 days with a meds authorizing provider and meeting all other requirements Future Appointments Date Type Provider Dept 08/13/21 Appointment Eligio Henley MD [facility] Showing future appointments within next 90 days with a meds authorizing provider and meeting all other requirements Not Delegated - Anticonvulsants Protocol Failed - 08/11/2021 1:39 PM Failed - This refill cannot be delegated Passed - Visit with relevant provider in past 12 months or upcoming 90 days Recent Visits Date Type Provider Dept 05/08/21 Office Visit Eligio Henley MD [facility] Showing recent visits within past 365 days and meeting all other requirements Future Appointments Date Type Provider Dept 08/13/21 Appointment Eligio Henley MD [facility] Showing future appointments within next 90 days and meeting all other requirements traMADol (ULTRAM) 50 MG Tablet [Pharmacy Med Name: TRAMADOL 50MG TABLETS] 120 Tablet 0 Sig: TAKE 1 TABLET BY MOUTH EVERY 6 HOURS NEEDED FOR MODERATE TO SEVERE PAIN healthfinch Not Delegated - Analgesics: Opioid Agonists Failed - 08/11/2021 1:39 PM Failed - This refill cannot be delegated Passed - Valid encounter within last 6 months Past Office Visits Recent Outpatient Visits 3 months ago Arthralgia, unspecified joint [facility] Eligio Bailey MD 1 year ago Acute pain of right knee [facility] Eligio Owens MD 1 year ago Anxiety [facility] Eligio Bailey MD 1 year ago Type 2 diabetes mellitus with hypoglycemia without coma, without long-term current use of insulin (HCC) [facility] Eligio Owens MD 2 years ago Arthralgia, unspecified joint [facility] Eligio Owens MD Upcoming Appointments Future Appointments In 2 days Eligio Henley MD [facility] EXPERIMENTAL PREFLIGHT MECHANIC - Recent and Past Visits Recent Visits [...] authorizing provider and meeting all other requirements rOPINIRole (REQUIP) 0.25 MG Tablet [Pharmacy Med Name: ROPINIROLE 0.25MG TABLETS] 60 Tablet 3 Sig: START WITH ONE TABLET BY MOUTH EVERY NIGHT AT BEDTIME AND MAY INCREASE TO 2 TABLETS BY MOUTH EVERY NIGHT AT BEDTIME AFTER THREE DAYS IS NEEDED Antiparkinson Dopaminergics and COMT Protocol Passed - 08/11/2021 1:39 PM Passed - Visit with relevant provider in the past 9 months or upcoming 90 days Recent Visits Date Type Provider Dept 05/08/21 Office Visit Eligio Henley MD [facility] Showing recent visits within past 270 days and meeting all other requirements Future Appointments Date Type Provider Dept 08/13/21 Appointment Eligio Henley MD [facility] Showing future appointments within next 90 days and meeting all other requirements Passed - Blood pressure on record in past 12 months Clinician-entered: BP Readings from Last 3 Encounters: 05/08/21 128/66 08/09/20 120/78 11/21/19 112/62 Patient-entered: No data recorded documented in this encounter Plan of Treatment Not on file documented as of this encounter Visit Diagnoses Diagnosis Anxiety Anxiety state, unspecified Arthralgia, unspecified joint Restless leg syndrome Restless legs syndrome (RLS) documented in this encounter Additional Health Concerns Assessment Noted Time PHQ-9 Depression Total Score: 0 11/01/19 3:00 PM CRYPTOLOGIC SUPERVISOR documented as of this encounter Care Teams Fork Operator Relationship Specialty Start Date End Date Eligio Henley MD PCP - General Family Medicine 11/01/18 11/04/21 Kayy Waldrop, DITTO MACHINE OPERATOR, ROVING TECHNICIAN [address] [place] [address] PCP - General Advanced Practice Nurse 11/05/21 11/11/21 Eligio Henley MD PCP - General Family Medicine 11/12/21 10/08/24 Manisha Lopez Behavioral Health Navigator 11/17/18 documented as of this encounter
--- OUTSIDE RECORDS SUMMARY | 2025-07-20 12:50 | XMS_ITS | Encounter Summary ---
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 Requested Prescriptions Pending Prescriptions Disp Refills gabapentin (NEURONTIN) 600 MG Tablet [Pharmacy Med Name: GABAPENTIN 600MG TABLETS] 90 Tablet 0 Sig: TAKE 1 TABLET BY MOUTH THREE TIMES DAILY Not Delegated - Anticonvulsants Excluding Benzodiazepines Protocol Failed - 12/16/2021 9:11 AM Failed - This refill cannot be delegated Passed - Visit with relevant provider in past 12 months or upcoming 90 days Recent Visits Date Type Provider Dept 11/27/21 Telemedicine Eligio Henley MD [facility] 09/16/21 Office Visit Eligio Henley MD [facility] 05/08/21 Office Visit Eligio Henley MD [facility] Showing recent visits within past 365 days and meeting all other requirements Future Appointments No visits were found meeting these conditions. Showing future appointments within next 90 days and meeting all other requirements rOPINIRole (REQUIP) 0.25 MG Tablet [Pharmacy Med Name: ROPINIROLE 0.25MG TABLETS] 60 Tablet 0 Sig: TAKE 1 TABLET BY MOUTH EVERY NIGHT AT BEDTIME AND MAY INCREASE TO 2 TABLET EVERY NIGHT AT BEDTIME AFTER 3 DAYS NEEDED Antiparkinson Dopaminergics and COMT Protocol Passed - 12/16/2021 9:11 AM Passed - Visit with relevant provider in the past 9 months or upcoming 90 days Recent Visits Date Type Provider Dept 09/16/21 Office Visit Eligio Henley MD [facility] 05/08/21 Office Visit Eligio Henley MD [facility] Showing recent visits within past 270 days and meeting all other requirements Future Appointments No visits were found meeting these conditions. Showing future appointments within next 90 days and meeting all other requirements Passed - Blood pressure on record in past 12 months Clinician-entered: BP Readings from Last 3 Encounters: 09/16/21 122/68 05/08/21 128/66 08/09/20 120/78 Patient-entered: No data recorded ED PRINTER documented in this encounter Plan of Treatment Not on file documented as of this encounter Visit Diagnoses Diagnosis Fibromyalgia Mylagia and myositis, unspecified Numbness and tingling in both hands Restless leg syndrome Restless legs syndrome (RLS) documented in this encounter Additional Health Concerns Assessment Noted Time PHQ-9 Depression Total Score: 0 11/01/19 3:00 PM RAISED PRINTER documented as of this encounter Care Teams Brazer Helper Induction Relationship Specialty Start Date End Date Eligio Henley MD [place] PCP - General Family Medicine 11/12/21 10/08/24 Manisha Lopez Behavioral Health Navigator 11/17/18 documented as of this encounter
--- OUTSIDE RECORDS SUMMARY | 2025-07-20 12:50 | XMS_ITS | Encounter Summary ---
Author Organization [facility] Address [address] [facility] [place] [address] Phone Care Team Providers Care Singer Back Tender Name Role Phone JohnManisha Shawn M MD Primary Care Provider [phone] Reason for Visit * Reason Comments Medication Refill Encounter Details Date Type Department Care Team (Late st Contact Info) Description 03/07/2022 Refill [facility] - Family Medicine [facility] [address] [place] [address] Eligio Henley MD [address] [place] [address] Medication Refill Social History Tobacco Use Types [...] on file Legal Sex Female 4: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 No / Unsure 02/19/2022 9:50 AM CDT documented as of this encounter Plan of Treatment Not on file documented as of this encounter Visit Diagnoses Not on filedocumented in this encounter Additional Health Concerns Assessment Noted Time PHQ-9 Depression Total Score: 0 11/01/19 19 3:00 PM CAKE PRESS OPERATOR HELPER documented as of this encounter Care Teams Singer Back Tender Relationship Specialty Start Date End Date Eligio Henley MD [place] PCP - General Family Medicine 11/12/21 10/08/24 Manisha Lopez Behavioral Health Navigator 11/17/18 documented as of this encounter
--- OUTSIDE RECORDS SUMMARY | 2025-07-20 12:50 | XMS_ITS | Encounter Summary ---
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 Requested Prescriptions Pending Prescriptions Disp Refills liraglutide (Victoza) 18 MG/3ML Solution Pen-injector [Pharmacy Med Name: VICTOZA 18MG/3ML INJ PEN 3ML(2PACK)] 9 mL 0 Si.2 mg by Subcutaneous route daily. GLP-1 Agonists Protocol Failed - 12/12/2021 8:46 AM Failed - HgA1C result on record in past 6 months HGB-A1C Date Value Ref Range Status 05/08/2021 8.9 (A) 4 - 6 Final Failed - GFR on record in past 6 months GFR, EST. NONAFRICAN Date Value Ref Range Status 05/08/2021 >60 >=60 Final Passed - Lipid panel result on file in past 12 months LDL Date Value Ref Range Status 05/08/2021 86 5 - 130 mg/dL Final HDL CHOLESTEROL Date Value Ref Range Status 05/08/2021 45.8 >40 mg/dL Final CHOLESTEROL Date Value Ref Range Status 05/08/2021 147 <=200 mg/dL Final TRIGLYCERIDES Date Value Ref Range Status 05/08/2021 78 <150 mg/dL Final VLDL Date Value Ref Range Status 05/08/2021 16 5 - 55 mg/dL Final CHOL/HDL RATIO Date Value Ref Range Status 05/08/2021 3.2 0.0 - 4.4 Final NON-HDL CHOLESTEROL Date Value Ref Range Status 05/08/2021 101.2 <130 mg/dL Final Passed - Visit with relevant provider in [...] 90 days and meeting all other requirements E GLASS POLISHER documented in this encounter Plan of Treatment Not on file documented as of this encounter Visit Diagnoses Not on filedocumented in this encounter Additional Health Concerns Assessment Noted Time PHQ-9 Depression Total Score: 0 11/01/19 3:00 PM PLATE GLASS POLISHER documented as of this encounter Care Teams Dietetics Professor Relationship Specialty Start Date End Date Eligio Henley MD [place] PCP - General Family Medicine 11/12/21 10/08/24 Manisha Lopez Behavioral Health Navigator 11/17/18 documented as of this encounter
--- OUTSIDE RECORDS SUMMARY | 2025-07-20 12:50 | XMS_ITS | Encounter Summary ---
Author Organization [facility] Address [address] [facility] [place] [place] [address] Phone Care Team Providers Care Staff Design Engineer Name Role Phone JohnManisha Shawn M MD Primary Care Provider [phone] Reason for Visit * Reason Comments Medication Refill Encounter Details Date Type Department Care Team (Late st Contact Info) Description 01/08/2022 Refill [facility] - Family Medicine [facility] [address] [place] [address] Eligio Henley MD [address] [place] [address] Medication Refill Social History Tobacco Use Types [...] on file Legal Sex Female 4:02 AM WORD PROCESSING MACHINE 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 No / Unsure 01/07/2022 9:46 AM CDT documented as of this encounter Miscellaneous Notes * Telephone Encounter - Rosalina Mcneil RN - 01/08/2022 2:23 PM CDT PDMP Zolpidem 11/12/21 - Clonazepam 10/14/21 Medication failed the protocol, provider to review and approve the medication order if appropriate. Requested Prescriptions Pending Prescriptions Disp Refills zolpidem (AMBIEN) 10 MG Tablet [Pharmacy Med Name: ZOLPIDEM 10MG TABLETS] 30 Tablet 0 Sig: TAKE 1 TABLET BY MOUTH EVERY NIGHT NEEDED FOR SLEEP Not Delegated - Off Protocol Failed - 01/08/2022 8:37 AM Failed - This refill cannot be delegated Passed - Visit with relevant provider in past 12 months or upcoming 90 days Recent Visits Date Type Provider Dept 01/07/22 Office Visit Iris Baron [facility] 11/27/21 Telemedicine Eligio Henley MD [facility] 09/16/21 Office Visit Eligio Henley MD [facility] 05/08/21 Office Visit Eligio Henley MD [facility] Showing recent visits within past 365 days and meeting all other requirements Future Appointments Date Type Provider Dept 02/19/22 Appointment Eligio Henley MD [facility] Showing future appointments within next 90 days and meeting all other requirements clonazePAM (KlonoPIN) 0.5 MG Tablet [Pharmacy Med Name: CLONAZEPAM 0.5MG TABLETS] 60 Tablet 0 Sig: TAKE 1 TABLET BY MOUTH TWICE DAILY NEEDED FOR ANXIETY Not Delegated - Clonazepam Protocol Failed - 01/08/2022 9:09 AM Failed - This refill cannot be delegated Passed - Visit with relevant provider in past 12 months or upcoming 90 days Recent Visits Date Type Provider Dept 01/07/22 Office Visit Iris Baron [facility] 11/27/21 Telemedicine Eligio Henley MD [facility] 09/16/21 Office Visit Eligio Henley MD [facility] 05/08/21 Office Visit Eligio Henley MD [facility] Showing recent visits within past 365 days and meeting all other requirements Future Appointments Date Type Provider Dept 02/19/22 Appointment Eligio Henley MD [facility] Showing future appointments within next 90 days and meeting all other requirements albuterol 108 (90 Base) MCG/ACT Aerosol Solution [Pharmacy Med Name: ALBUTEROL HFA INH(200 PUFFS)18GM] 18 g 0 Sig: INHALE 2 PUFFS BY MOUTH EVERY 4 HOURS NEEDED FOR WHEEZING Short Acting Inhaled Beta-Agonists Protocol Passed - 01/08/2022 9:09 AM Passed - Visit with relevant provider in past 12 months or upcoming 90 days Recent Visits Date Type Provider Dept 01/07/22 [facility] [place]/21 Telemedicine Eligio Henley MD [facility] 09/16/21 Office Visit Eligio Henley MD [facility] 05/08/21 Office Visit Eligio Henley MD [facility] Showing recent visits within past 365 days and meeting all other requirements Future Appointments Date Type Provider Dept 02/19/22 Appointment Eligio Henley MD [facility] Showing future appointments within next 90 days and meeting all other requirements Victoza 18 MG/3ML Solution Pen-injector [Pharmacy Med Name: VICTOZA 18MG/3ML INJ PEN 3ML(2PACK)] 9 mL 0 Sig: ADMINISTER 1.2 MG UNDER THE SKIN DAILY GLP-1 Agonists Protocol Failed - 01/08/2022 9:09 AM Failed - HgA1C result on record [...] days Recent Visits Date Type Provider Dept 01/07/22 Office Visit Iris Baron [facility] [place] 11/27/21 Telemedicine Eligio Henley MD [facility] 09/16/21 [facility] Showing recent visits within past 182 days and meeting all other requirements Future Appointments Date Type Provider Dept 02/19/22 Appointment [facility] Showing future appointments within next 90 days and meeting all other requirements documented in this encounter Plan of Treatment Not on file documented as of this encounter Visit Diagnoses Diagnosis Moderate episode of recurrent major depressive disorder Anxiety Anxiety state, unspecified documented in this encounter Additional Health Concerns Assessment Noted Time PHQ-9 Depression Total Score: 0 11/01/19 19 3:00 PM WORD PROCESSING MACHINE OPERATOR documented as of this encounter Care Teams Staff Design Engineer Relationship Specialty Start Date End Date Eligio Henley MD [place] PCP - General Family Medicine 11/12/21 10/08/24 Manisha Lopez Behavioral Health Navigator 11/17/18 documented as of this encounter
--- OUTSIDE RECORDS SUMMARY | 2025-07-20 12:50 | XMS_ITS | Encounter Summary ---
Author Organization [facility] Address [address] [place] [address] Phone Care Team Providers Care Meatcutter Name Role Phone JohnManisha Shawn M MD Primary Care Provider [phone] Reason for Visit * Reason Comments Medication Refill Encounter Details Date Type Department Care Team (Late st Contact Info) Description 11/23/2023 Refill [facility] [address] [place] [address] Eligio Henley MD [address] [place] [address] Medication Refill Social History Tobacco Use Types [...] on file Legal Sex Female 4:02 AM PROCESS TRAINER Gender Identity Not on file Sexual Orientation Not on file 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 No show her appointment in sep. No refills. ESS TRAINER * Telephone Encounter - Rosalina Mcneil RN - 11/23/2023 5:23 PM CST Last Rx for Zolpidem & Clonazepam 07/01/23 - no refill hx noted on PDMP Medication failed the protocol, provider to review and approve the medication order if appropriate. Requested Prescriptions Pending Prescriptions Disp Refills zolpidem (AMBIEN) 10 MG Tablet [Pharmacy Med Name: ZOLPIDEM 10MG TABLETS] 30 Tablet 0 Sig: TAKE 1 TABLET BY MOUTH EVERY NIGHT NEEDED FOR SLEEP Not Delegated - Off Protocol Failed - 11/23/2023 4:38 PM Failed - This refill cannot be delegated Passed - Visit with relevant provider in past 12 months or upcoming 90 days Recent Visits Date Type Provider Dept 07/01/23 Office Visit Eligio Henley MD [facility] 02/22/23 Office Visit Damion Pinon APRN, PANTOGRAPH II ENGRAVER [facility] Showing recent visits within past 365 days and meeting all other requirements Future Appointments No visits were found meeting these conditions. Showing future appointments within next 90 days and meeting all other requirements clonazePAM (KlonoPIN) 0.5 MG Tablet [Pharmacy Med Name: CLONAZEPAM 0.5MG TABLETS] 60 Tablet 0 Sig: TAKE 1 TABLET BY MOUTH TWICE DAILY NEEDED FOR ANXIETY. Not Delegated - Clonazepam Protocol Failed - 11/23/2023 4:38 PM Failed - This refill cannot be delegated Passed - Visit with relevant provider in past 12 months or upcoming 90 days Recent Visits Date Type Provider Dept 07/01/23 Office Visit Eligio Henley MD [facility] 02/22/23 Office Visit Damion Pinon APRN, LIAT [facility] Showing recent visits within past 365 days and meeting all other requirements Future Appointments No visits were found meeting these conditions. Showing future appointments within next 90 days and meeting all other requirements citalopram (CeleXA) 20 MG Tablet [Pharmacy Med Name: CITALOPRAM 20MG TABLETS] 90 Tablet 0 Sig: TAKE 1 TABLET BY MOUTH DAILY Citalopram (Celexa) (6 Month Refill Only) Protocol Failed - 11/23/2023 4:38 PM Failed - Patient has established therapy with Citalopram for at least 6 months Passed - No test in the past 12 months or most recent test was negative Passed - No active on record Passed - Citalopram dose is less than or equal to 40mg / day Passed - Visit with relevant provider in past 6 months or upcoming 90 days Recent Visits Date Type Provider Dept 07/01/23 Office Visit Elgiio Henely MD [facility] Showing recent visits within past 182 days and meeting all other requirements Future Appointments No visits were found meeting these conditions. Showing future appointments within next 90 days and meeting all other requirements Passed - Has an encounter in the past 6 months with a depression, anxiety, adjustment disorder, OCD, or PTSD visit diagnosis ESS TRAINER documented in this encounter Plan of Treatment Not on file documented as of this encounter Visit Diagnoses Diagnosis Moderate episode of recurrent major depressive disorder Anxiety Anxiety state, unspecified documented in this encounter Additional Health Concerns Assessment Noted Time PHQ-9 Depression Total Score: 0 11/01/19 19 3:00 PM PROCESS TRAINER documented as of this encounter Care Teams Meatcutter Relationship Specialty Start Date End Date Eligio Henley MD [place] PCP - General Family Medicine 11/12/21 10/08/24 Manisha Lopez Behavioral Health Navigator 11/17/18 documented as of this encounter
--- OUTSIDE RECORDS SUMMARY | 2025-07-20 12:50 | XMS_ITS | Encounter Summary ---
Author Organization [facility] Address [address] [place] [place] [address] Phone Care Team Providers Care Hoe Worker Name Role Phone JohnManisha Shawn M MD Primary Care Provider [phone] Reason for Visit * Reason Comments Medication Refill Encounter Details Date Type Department Care Team (Late st Contact Info) Description 02/05/2022 Refill [facility] - Family Medicine [facility] [address] [place] [address] Eligio Henley MD [address] [place] [address] Medication Refill Social History Tobacco Use Types [...] on file Legal Sex Female 4:02 AM SUPERVISOR BLOOD Gender Identity Not on file Sexual Orientation Not on file 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 No / Unsure 01/07/2022 9:46 AM CDT documented as of this encounter Miscellaneous Notes * Telephone Encounter - Rosalina Mcneil RN - 02/05/2022 9:20 AM CDT PRN medication requires review from provider Per nursing clinical judgement, provider to review and approve the medication(s) order(s) if appropriate. Requested Prescriptions Pending Prescriptions Disp Refills albuterol 108 (90 Base) MCG/ACT Aerosol Solution [Pharmacy Med Name: ALBUTEROL HFA INH(200 PUFFS)18GM] 18 g 1 Sig: INHALE 2 PUFFS BY MOUTH EVERY 4 HOURS NEEDED FOR WHEEZING Short Acting Inhaled Beta-Agonists Protocol Passed - 02/05/2022 3:57 AM Passed - Visit with relevant provider in past 12 months or upcoming 90 days Recent Visits Date Type Provider Dept 01/07/22 Office Visit Iris Baron PAC [facility] 11/27/21 Telemedicine Eligio Henley MD [facility] 09/16/21 Office Visit Eligio Henley MD [facility] 05/08/21 Office [facility] Showing recent visits within past 365 days and meeting all other requirements Future Appointments Date Type Provider Dept 02/19/22 Appointment Eligio Henley MD [facility] Showing future appointments within next 90 days and meeting all other requirements fluticasone (FLONASE) 50 MCG/ACT Suspension [Pharmacy Med Name: FLUTICASONE 50MCG NASAL SP (120) RX] 16 g 1 Sig: SHAKE LIQUID AND USE 1 TO 2 SPRAYS IN EACH NOSTRIL DAILY DIRECTED Nasal Steroids Protocol Passed - 02/05/2022 3:57 AM Passed - Visit with relevant provider in past 12 months or upcoming 90 days Recent Visits Date Type Provider Dept 01/07/22 Office Visit Iris Baron PAC [facility] 11/27/21 Telemedicine Eligio Henley MD [facility] 09/16/21 Office Visit Eligio Henley MD [facility] 05/08/21 Office Visit Eligio Henley MD [facility] Showing recent visits within past 365 days and meeting all other requirements Future Appointments Date Type Provider Dept 02/19/22 Appointment Eligio Henley MD [facility] Showing future appointments within next 90 days and meeting all other requirements meloxicam (MOBIC) 7.5 MG Tablet [Pharmacy Med Name: MELOXICAM 7.5MG TABLETS] 90 Tablet 3 Sig: TAKE 1 TABLET BY MOUTH DAILY NSAIDs Protocol Passed - 02/05/2022 3:57 AM Passed - Normal serum creatinine in past 12 months CREATININE, BLOOD Date Value Ref Range Status 05/08/2021 0.60 0.60 - 1.10 mg/dL Final Passed - No positive test in the past 12 months or most recent test was negative Passed - Visit with relevant provider in past 12 months or upcoming 90 days Recent Visits Date Type Provider Dept 01/07/22 Office Visit Iris Baron, [facility] 11/27/21 Telemedicine Eligio Henley MD [facility] 09/16/21 Office Visit Eligio Henley MD [facility] 05/08/21 Office Visit Eligio Henley MD [facility] Showing recent visits within past 365 days and meeting all other requirements Future Appointments Date Type Provider Dept 02/19/22 Appointment Eligio Henley MD [facility] Showing future appointments within next 90 days and meeting all other requirements Passed - No active on record Passed - No matching NSAID med order in past 45 days No matching medication orders between 12/22/2021 9:20 AM and 02/05/2022 9:20 AM Passed - AST less than 55 or ALT less than 90 in past 12 months SGOT (AST) Date Value Ref Range Status 05/08/2021 9 <=32 U/L Final SGPT (ALT) Date Value Ref Range Status 05/08/2021 10 <=41 U/L Final Passed - HGB greater than 10 or HCT greater than 30 in past 12 months HEMOGLOBIN (HGB) Date Value Ref Range Status 05/08/2021 12.5 12.0 - 15.8 g/dL Final HEMATOCRIT (HCT) Date Value Ref Range Status 05/08/2021 38.3 36.0 - 47.0 % Final documented in this encounter Plan of Treatment Not on file documented as of this encounter Visit Diagnoses Not on filedocumented in this encounter Additional Health Concerns Assessment Noted Time PHQ-9 Depression Total Score: 0 11/01/19 3:00 PM SUPERVISOR BLOOD documented as of this encounter Care Teams Hoe Worker Relationship Specialty Start Date End Date Eligio Henley MD [place] PCP - General Family Medicine 11/12/21 10/08/24 Manisha Lopez Behavioral Health Navigator 11/17/18 documented as of this encounter
--- OUTSIDE RECORDS SUMMARY | 2025-07-20 12:50 | XMS_ITS | Encounter Summary ---
Author Organization [facility] Address [address] [place] [address] Phone Care Team Providers Care Linux Programmer Name Role Phone Eligio Henley MD Primary Care Provider [phone] Manisha Lopez Christin P APN, [facility] Primary Care Pro vider Eligio Henley MD Primary Care Provider Reason for Visit * Reason Comments Medication Refill Encounter Details Date Type Department Care Team (Late st Contact Info) Description 10/13/2021 Refill [facility] - Family Medicine [facility] [address] [place] [address] Eligio Henley MD [address] [place] [address] Medication Refill Social History Tobacco Use Types [...] on file Legal Sex Female 4:02 AM DOUBLE BASS PLAYER Gender Identity Not on file Sexual Orientation Not on file 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 No / Unsure 09/16/2021 1:56 PM DOUBLE BASS PLAYER documented as of this encounter Miscellaneous Notes * Telephone Encounter - Rosalina Mcneil RN - 10/14/2021 11:04 AM CST PDMP Tramadol 08/12/21 - Clonazepam 08/11/21 Per nursing clinical judgement, provider to review and approve the medication(s) order(s) if appropriate. Requested Prescriptions Pending Prescriptions Disp Refills clonazePAM (KlonoPIN) 0.5 MG Tablet [Pharmacy Med Name: CLONAZEPAM 0.5MG TABLETS] 60 Tablet 0 Sig: TAKE 1 TABLET BY MOUTH TWICE DAILY NEEDED FOR ANXIETY Not Delegated - Clonazepam Protocol Failed - 10/14/2021 11:04 AM Failed - This refill cannot be [...] MODERATE TO SEVERE PAIN Not Delegated - Opioid Agonists Protocol Failed - 10/14/2021 11:04 AM Failed - This refill cannot be [...] 90 days and meeting all other requirements LE BASS PLAYER documented in this encounter Plan of Treatment Not on file documented as of this encounter Visit Diagnoses Diagnosis Anxiety Anxiety state, unspecified Arthralgia, unspecified joint documented in this encounter Additional Health Concerns Assessment Noted Time PHQ-9 Depression Total Score: 0 11/01/19 3:00 PM DOUBLE BASS PLAYER documented as of this encounter Care Teams Linux Programmer Relationship Specialty Start Date End Date Eligio Henley MD PCP - General Family Medicine 11/01/18 11/04/21 Kayy Waldrop, MUD JACK NOZZLE WORKER, METAL MELTER [address] [place] [address] PCP - General Advanced Practice Nurse 11/05/21 11/11/21 Eligio Henley MD PCP - General Family Medicine 11/12/21 10/08/24 Manisha Lopez Behavioral Health Navigator 11/17/18 documented as of this encounter
--- OUTSIDE RECORDS SUMMARY | 2025-07-20 12:50 | XMS_ITS | Encounter Summary ---
Author Organization [facility] Address [address] [place] [address] Phone Care Team Providers Care Sketch Maker Name Role Phone JohnManisha Shawn M MD Primary Care Provider [phone] Reason for Visit * Reason Comments Medication Refill Encounter Details Date Type Department Care Team (Late st Contact Info) Description 03/23/2022 Refill [facility] [address] [place] [address] Eligio Henley MD [address] [place] [address] Medication Refill Social History Tobacco Use Types [...] on file Legal Sex Female 4:02 AM NARROW GAUGE 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 She is on thetramadol and should really only be on one of these. * Telephone Encounter - Dori Vega RN - 03/24/2022 8:27 AM CDT PDMP - Tramadol 02/19 Clonazepam 01/09 Medication failed the protocol, provider to review and approve the medication order if appropriate. Requested Prescriptions Pending Prescriptions Disp Refills clonazePAM (KlonoPIN) 0.5 MG Tablet [Pharmacy Med Name: CLONAZEPAM 0.5MG TABLETS] 60 Tablet Sig: TAKE 1 TABLET BY MOUTH TWICE DAILY NEEDED FOR ANXIETY Not Delegated - Clonazepam Protocol Failed - 03/23/2022 3:56 AM Failed - This refill cannot be delegated Passed - Visit with relevant provider in past 12 months or upcoming 90 days Recent Visits Date Type Provider Dept 02/19/22 Office Visit Eligio Henley MD [facility] 01/07/22 [facility] 11/27/21 Telemedicine Eligio Henley MD [facility] 09/16/21 Office Visit Eligio Henley MD [facility] 05/08/21 Office Visit [facility] Showing recent visits within past 365 days and meeting all other requirements Future Appointments Date Type Provider Dept 06/22/22 Appointment Eligio Henley MD [facility] Showing future appointments within next 90 days and meeting all other requirements traMADol (ULTRAM) 50 MG Tablet [Pharmacy Med Name: TRAMADOL 50MG TABLETS] 120 Tablet Sig: TAKE 1 TABLET BY MOUTH EVERY 6 HOURS NEEDED FOR MODERATE TO SEVERE PAIN Not Delegated - Opioid Agonists Protocol Failed - 03/23/2022 3:56 AM Failed - This refill cannot be delegated Passed - Visit with relevant provider in past 12 months or upcoming 90 days Recent Visits Date Type Provider Dept 02/19/22 Office Visit Eligio Henley MD [facility] 01/07/22 Office Visit Iris Baron, [facility] 11/27/21 Telemedicine Eligio Henley MD [facility] 09/16/21 Office Visit Eligio Henley MD [facility] 05/08/21 Office Visit Eligio Henley MD [facility] Showing recent visits within past 365 days and meeting all other requirements Future Appointments Date Type Provider Dept 06/22/22 Appointment Eligio Henley MD [facility] Showing future appointments within next 90 days and meeting all other requirements gabapentin (NEURONTIN) 600 MG Tablet [Pharmacy Med Name: GABAPENTIN 600MG TABLETS] 270 Tablet Sig: TAKE 1 TABLET BY MOUTH THREE TIMES DAILY Not Delegated - Anticonvulsants Excluding Benzodiazepines Protocol Failed - 03/23/2022 3:56 AM Failed - This refill cannot be delegated Passed - Visit with relevant provider in past 12 months or upcoming 90 days Recent Visits Date Type Provider Dept 02/19/22 Office Visit Eligio Henley MD [facility] 01/07/22 Office Visit Iris Baron, [facility] 11/27/21 Telemedicine Eligio Henley MD [facility] 09/16/21 Office Visit Eligio Henley MD [facility] 05/08/21 Office Visit Eligio Henley MD [facility] Showing recent visits within past 365 days and meeting all other requirements Future Appointments Date Type Provider Dept 06/22/22 Appointment Eligio Henley MD [facility] Showing future appointments within next 90 days and meeting all other requirements loratadine (CLARITIN) 10 MG Tablet [Pharmacy Med Name: LORATADINE 10MG TABLETS] 90 Tablet 1 Sig: TAKE 1 TABLET BY MOUTH DAILY Non-sedating Antihistamines Protocol Passed - 03/23/2022 3:56 AM Passed - Visit with relevant provider in past 12 months or upcoming 90 days Recent Visits Date Type Provider Dept 02/19/22 Office Visit Eligio Henley MD [facility] 01/07/[address] [facility] 11/27/21 Telemedicine Eligio Henley MD [facility] 09/16/21 Office Visit Eligio Henley MD [facility] 05/08/21 Office Visit [facility] Showing recent visits within past 365 days and meeting all other requirements Future Appointments Date Type Provider Dept 06/22/22 Appointment Eligio Henley MD [facility] Showing future appointments within next 90 days and meeting all other requirements documented in this encounter Plan of Treatment Not on file documented as of this encounter Visit Diagnoses Diagnosis Anxiety Anxiety state, unspecified Arthralgia, unspecified joint Fibromyalgia Mylagia and myositis, unspecified Numbness and tingling in both hands documented in this encounter Additional Health Concerns Assessment Noted Time PHQ-9 Depression Total Score: 0 11/01/19 19 3:00 PM NARROW GAUGE OPERATOR documented as of this encounter Care Teams Sketch Maker Relationship Specialty Start Date End Date Eligio Henley MD [place] PCP - General Family Medicine 11/12/21 10/08/24 Manisha Lopez Behavioral Health Navigator 11/17/18 documented as of this encounter
--- OUTSIDE RECORDS SUMMARY | 2025-07-20 12:50 | XMS_ITS | Encounter Summary ---
Author Organization [facility] Address [facility] [place] [address] Care Team Providers Care Lacer And Tier Name Role Phone Krystin Ibarra MD Primary Care Provider + Encounter Details Date Type Department Care Team ([facility] Contact Info) Description 02/27/2025 [employer] Message Enc [facility] Family Medicine [facility] [address] [facility] [address] [place] [address] Krystin Ibarra MD [address] [place] [phone] My insulin Social History Tobacco Use Types Packs/Day Years Used Date Smoking Tobacco: Former Passive Smoke Exposure: Past Smokeless Tobacco: Never Comments:Vaped for 3 years Alcohol Use Standard Drinks/Week Comments Not Currently 0 (1 standard drink = 0.6 oz pur e alcohol) Not enough to answer PHQ-2 Answer Date Recorded Patient Health Questionnaire-2 Score 6 01/22/2025 Comments No Sex and Gender Information Value Date Recorded Sex Assigned at Female 12/30/2024 1:17 PM STEERSMAN Legal Sex Female 7:16 PM CDT Gender Identity Female 02/23/2025 9:36 AM CDT Sexual Orientation Not on file documented as of this encounter Plan of Treatment Upcoming Encounters Date Type Department Care Team (Late Contact Info) Description 08/02/2025 1:00 PM CDT Office Visit [facility] Family Medicine [facility] [address] [facility] [address] [place] [address] Krystin Ibarra MD [address] [place] [address] documented as of this encounter Visit Diagnoses Not on filedocumented in this encounter Care Teams Lacer And Tier Relationship Specialty Start Date End Date Krystin Ibarra MD [address] [place] [address] PCP - General FAMILY PRACTICE 12/21/24 documented as of this encounter
--- OUTSIDE RECORDS SUMMARY | 2025-07-20 12:50 | XMS_ITS | Encounter Summary ---
Author Organization [facility] Address [address] [place] [address] Phone Care Team Providers Care Literary Agent Name Role Phone Manisha Lopez Shawn M MD Primary Care Provider [phone] Reason for Visit * Reason Comments Medication Refill Encounter Details Date Type Department Care Team (Late Contact Info) Description 08/13/2022 Refill [facility] [address] [place] [address] Eligio Henley MD [address] [place] [address] Medication Refill Social History Tobacco Use Types [...] on file Legal Sex Female 4:02 AM RECTIFYING OPERATOR Gender Identity Not on file Sexual Orientation Not on file 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 on file Not on file Not on file documented as of this encounter Miscellaneous Notes * Telephone Encounter - Rosalina Mcneil RN - 08/13/2022 11:10 AM CDT Name from pharmacy: ALBUTEROL HFA INH(200 PUFFS)18GM Will file in chart as: albuterol 108 (90 Base) MCG/ACT Aerosol Solution The original prescription was discontinued on 06/22/2022 by Eligio Henley MD documented in this encounter Plan of Treatment Not on file documented as of this encounter Visit Diagnoses Not on filedocumented in this encounter Additional Health Concerns Assessment Noted Time PHQ-9 Depression Total Score: 0 11/01/19 19 3:00 PM RECTIFYING OPERATOR documented as of this encounter Care Teams Literary Agent Relationship Specialty Start Date End Date Eligio Henley MD [place] PCP - General Family Medicine 11/12/21 10/08/24 Manisha Lopez Behavioral Health Navigator 11/17/18 documented as of this encounter
--- OUTSIDE RECORDS SUMMARY | 2025-07-20 12:50 | XMS_ITS | Encounter Summary ---
Author Organization [facility] Address [address] [place] [address] Phone Care Team Providers Care Auto Seat Cover Installer Name Role Phone JohnManisha Shawn M MD Primary Care Provider [phone] Reason for Visit * Reason Comments Medication Refill Encounter Details Date Type Department Care Team (Late st Contact Info) Description 07/23/2022 Refill [facility] - Family Medicine [facility] [address] [place] [address] Eligio Henley MD [address] [place] [address] Medication Refill Social History Tobacco Use Types [...] on file Legal Sex Female 4:02 AM MACHINE PULLER OVER Gender Identity Not on file Sexual Orientation Not on file 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 No / Unsure 07/09/2022 2:21 PM CDT documented as of this encounter Miscellaneous Notes * Telephone Encounter - Ewa Rosalina L, RN - 07/23/2022 2:54 PM CDT PDMP Clonazepam & Adderall 06/22/22 - Zolpidem 01/09/22 Medication failed the protocol, provider to review and approve the medication order if appropriate. Requested Prescriptions Pending Prescriptions Disp Refills clonazePAM (KlonoPIN) 0.5 MG Tablet [Pharmacy Med Name: CLONAZEPAM 0.5MG TABLETS] 60 Tablet 0 Sig: TAKE 1 TABLET BY MOUTH TWICE DAILY NEEDED FOR ANXIETY Not Delegated - Clonazepam Protocol Failed - 07/23/2022 2:04 PM Failed - This refill cannot be delegated Passed - Visit with relevant provider in past 12 months or upcoming 90 days Recent Visits Date Type Provider Dept 07/09/22 Office Visit Luis Enrique Agarwal MD [facility] 06/22/22 Office Visit Eligio Henley MD [facility] 02/19/22 Office Visit Eligio Henley MD [facility] 01/07/22 Office [facility] 11/27/21 Telemedicine Eligio Henley MD [facility] 09/16/21 Office Visit [facility]ligio [facility] Showing recent visits within past 365 days and meeting all other requirements Future Appointments Date Type Provider Dept 08/03/22 Appointment Luis Enrique Agarwal MD [facility] 09/24/22 Appointment Eligio [facility] MD [facility] Showing future appointments within next 90 days and meeting all other requirements zolpidem (AMBIEN) 10 MG Tablet [Pharmacy Med Name: ZOLPIDEM 10MG TABLETS] 30 Tablet 0 Sig: TAKE 1 TABLET BY MOUTH EVERY NIGHT NEEDED FOR SLEEP There is no refill protocol information for this order glimepiride (AMARYL) 4 MG Tablet [Pharmacy Med Name: GLIMEPIRIDE 4MG TABLETS] 90 Tablet 2 Sig: TAKE 1 TABLET BY MOUTH EVERY MORNING Sulfonylureas Protocol Failed - 07/23/2022 2:04 PM Failed - GFR on record in past 6 months GFR, EST. NONAFRICAN Date Value Ref Range Status 05/08/2021 >60 >=60 Final Passed - Visit with relevant provider in past 6 months or upcoming 90 days Recent Visits Date Type Provider Dept 07/09/22 Office Visit Luis Enrique Agarwal MD [facility] 06/22/22 Office Visit Eligio Henley MD [facility] 02/19/22 Office Visit Eligio Henley MD [facility] Showing recent visits within past 182 days and meeting all other requirements Future Appointments Date Type Provider Dept 08/03/22 Appointment Luis Enrique Agarwal MD [facility] 09/24/22 Appointment Eligio Henley MD [facility] Showing future appointments within next 90 days and meeting all other requirements Passed - HgA1C on record in past 6 months HGB-A1C Date Value Ref Range Status 06/22/2022 10.1 (A) 4 - 6 Final amphetamine-dextroamphetamine (Adderall XR) 30 MG CAPSULE SR 24 HR 30 Capsule 0 Sig: Take 1 Capsule by mouth every morning. There is no refill protocol information for this order documented in this encounter Plan of Treatment Not on file documented as of this encounter Visit Diagnoses Diagnosis Anxiety Anxiety state, unspecified Moderate episode of recurrent major depressive disorder Attention deficit hyperactivity disorder (ADHD), unspecified ADHD type documented in this encounter Additional Health Concerns Assessment Noted Time PHQ-9 Depression Total Score: 0 11/01/19 19 3:00 PM MACHINE PULLER OVER documented as of this encounter Care Teams Auto Seat Cover Installer Relationship Specialty Start Date End Date Eligio Henley MD [place] PCP - General Family Medicine 11/12/21 10/08/24 Manisha Lopez Behavioral Health Navigator 11/17/18 documented as of this encounter
--- OUTSIDE RECORDS SUMMARY | 2025-07-20 12:50 | XMS_ITS | Encounter Summary ---
Author Organization [facility] Address [address] [place] [address] Phone Care Team Providers Care Staff Services Manager Name Role Phone Manisha Lopez Shawn M MD Primary Care Provider [phone] Reason for Visit * Reason Comments Medication Refill Encounter Details Date Type Department Care Team (Late st Contact Info) Description 02/13/2023 [facility]ill [facility] [address] [place] [address] Eligio Henley MD [address] [place] [address] Medication Refill Social History Tobacco Use Types [...] on file Legal Sex Female 4:02 AM REGIONAL MANAGER Gender Identity Not on file Sexual Orientation Not on file 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 Requested Prescriptions Pending Prescriptions Disp Refills cyclobenzaprine (FLEXERIL) 10 MG Tablet [Pharmacy Med Name: CYCLOBENZAPRINE 10MG TABLETS] 90 Tablet0 Sig: TAKE 1 TABLET BY MOUTH THREE TIMES DAILY NEEDED FOR MUSCLE SPASMS Not Delegated - Muscle Relaxants Protocol Failed - 02/13/2023 3:43 PM Failed - This refill cannot be delegated Failed - Active on medication list Passed - Visit with relevant provider in past 12 months or upcoming 90 days Recent Visits Date Type Provider Dept 09/24/22 Office Visit Eligio Henley MD [facility] 08/25/22 Office Visit Luis Enrique Agarwal MD [facility] 07/09/22 Office Visit Luis Enrique Agarwal MD [facility] 06/22/22 Office Visit Eligio Henley MD [facility] 02/19/22 Office Visit Eligio Henley MD [facility] Showing recent visits within past 365 days and meeting all other requirements Future Appointments No visits were found meeting these conditions. Showing future appointments within next 90 days and meeting all other requirements Refused Prescriptions Disp Refills citalopram (CeleXA) 10 MG Tablet [Pharmacy Med Name: CITALOPRAM 10MG TABLETS] 90 Tablet 0 Sig: TAKE 1 TABLET BY MOUTH DAILY Citalopram (Celexa) (6 Month Refill Only) Protocol Passed - 02/13/2023 3:43 PM Passed - No test in the past 12 months or most recent test was negative Passed - No active on record Passed - Citalopram dose is less than or equal to 40mg / day Passed - Visit with relevant provider in past 6 months or upcoming 90 days Recent Visits Date Type Provider Dept 09/24/22 Office Visit Eligio Henley MD [facility] 08/25/22 Office Visit Luis Enrique Agarwal MD [facility] Showing recent visits within past 182 days and meeting all other requirements Future Appointments No visits were found meeting these conditions. Showing future appointments within next 90 days and meeting all other requirements Passed - Patient has established therapy with Citalopram for at least 6 months Passed - Has an encounter in the past 6 months with a depression, anxiety, adjustment disorder, OCD, or PTSD visit diagnosis documented in this encounter Plan of Treatment Not on file documented as of this encounter Visit Diagnoses Diagnosis Muscle spasm Spasm of muscle documented in this encounter Additional Health Concerns Assessment Noted Time PHQ-9 Depression Total Score: 0 11/01/19 19 3:00 PM REGIONAL MANAGER documented as of this encounter Care Teams Staff Services Manager Relationship Specialty Start Date End Date Eligio Henley MD [place] PCP - General Family Medicine 11/12/21 10/08/24 Manisha Lopez [place] Behavioral Health Navigator 11/17/18 documented as of this encounter
--- OUTSIDE RECORDS SUMMARY | 2025-07-20 12:50 | XMS_ITS | Encounter Summary ---
Author Organization [facility] Address [address] [facility] [place] [address] Phone Care Team Providers Care Filtering Machine Tender Helper Name Role Phone JohnManisha Shawn M MD Primary Care Provider [phone] Reason for Visit * Reason Comments Medication Refill Encounter Details Date Type Department Care Team (Late st Contact Info) Description 02/18/2022 Refill [facility] - Family Medicine [facility] [address] [place] [address] Eligio Henley MD [address] [place] [address] Medication Refill Social History Tobacco Use Types [...] on file Legal Sex Female 4:02 AM EARTH SCIENCE TEACHER Gender Identity Not on file Sexual Orientation Not on file 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 No / Unsure 02/19/2022 9:50 AM CDT documented as of this encounter Miscellaneous Notes * Telephone Encounter - Rosalina Mcneil RN - 02/18/2022 2:44 PM CDT Medication failed the protocol, provider to review and approve the medication order if appropriate. Requested Prescriptions Pending Prescriptions Disp Refills gabapentin (NEURONTIN) 600 MG Tablet [Pharmacy Med Name: GABAPENTIN 600MG TABLETS] 90 Tablet 0 Sig: TAKE 1 TABLET BY MOUTH THREE TIMES DAILY Not Delegated - Anticonvulsants Excluding Benzodiazepines Protocol Failed - 02/18/2022 3:56 AM Failed - This refill cannot be delegated Passed - Visit with relevant provider in past 12 months or upcoming 90 days Recent Visits Date Type Provider Dept 01/07/22 Office Visit Iris Baron, EBER [facility] 11/27/21 Telemedicine Eligio Henley MD [facility] 09/16/21 Office Visit Eligio Henley MD [facility] 05/08/21 Office Visit [facility] Showing recent visits within past 365 [...] Total Score: 0 11/01/19 19 3:00 PM EARTH SCIENCE TEACHER documented as of this encounter Care Teams Filtering Machine Tender Helper Relationship Specialty Start Date End Date Eligio Henley MD [place] PCP - General Family Medicine 11/12/21 10/08/24 Manisha Lopez Behavioral Health Navigator 11/17/18 documented as of this encounter
--- OUTSIDE RECORDS SUMMARY | 2025-07-20 12:50 | XMS_ITS | Encounter Summary ---
Author Organization [facility] Address [address] [place] [address] Phone Care Team Providers Care Inside Sales Consultant Name Role Phone Eligio Henley MD Primary Care Provider [phone] Manisha Lopez Christin P APN, [facility] Primary Care Pro vider Eligio Henley MD Primary Care Provider [phone] Reason for Visit * Reason Comments Medication Refill Encounter Details Date Type Department Care Team (Late st Contact Info) Description 07/29/2021 Refill [facility] Medical Group - Family Medicine [facility] [address] [place] [address] Eligio Henley MD [address] [place] [address] Medication Refill Social History Tobacco Use Types [...] on file Legal Sex Female 4:02 AM APPLE THINNER Gender Identity Not on file Sexual Orientation Not on file 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 Requested Prescriptions Pending Prescriptions Disp Refills loratadine (CLARITIN) 10 MG Tablet [Pharmacy Med Name: LORATADINE 10MG TABLETS] 90 Tablet 1 Sig: TAKE 1 TABLET BY MOUTH DAILY Non-sedating Antihistamines Protocol Passed - 07/29/2021 11:32 AM Passed - Visit with relevant provider [...] Total Score: 0 11/01/19 19 3:00 PM APPLE THINNER documented as of this encounter Care Teams Inside Sales Consultant Relationship Specialty Start Date End Date Eligio Henley MD PCP - General Family Medicine 11/01/18 11/04/21 Kayy Waldrop, LEADER TIER, SALES FLOOR TEAM MEMBER [facility] [place] [place] [address] PCP - General Advanced Practice Nurse 11/05/21 11/11/21 Eligio Henley MD PCP - General Family Medicine 11/12/21 10/08/24 Manisha Lopez Behavioral Health Navigator 11/17/18 documented as of this encounter
--- OUTSIDE RECORDS SUMMARY | 2025-07-20 12:50 | XMS_ITS | Encounter Summary ---
Author Organization [facility] Address [address] [place] [address] Phone Care Team Providers Care Oracle Specialist Name Role Phone Eligio Henley MD Primary Care Provider [phone] Manisha Lopez Christin P APN, [facility] Primary Care Pro vider Eligio Henley MD Primary Care Provider [phone] Reason for Visit * Reason Comments Medication Refill Encounter Details Date Type Department Care Team (Late st Contact Info) Description 06/02/2021 Refill [facility] Medical [facility] - Family Medicine [facility] [address] [place] [address] Eligio Henley MD [address] [place] [address] Medication Refill Social History Tobacco Use Types [...] on file Legal Sex Female 4:02 AM HUMAN RESOURCES BENEFITS ASSISTANT Gender Identity Not on file Sexual Orientation Not on file 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 No / Unsure 05/08/2021 1:23 PM CDT documented as of this encounter Miscellaneous Notes * Telephone Encounter - Rosalina Mcniel RN - 06/03/2021 2:59 PM CDT This was last ordered over a year ago. Patient has follow up in July. Do you want her to come inearlier for this medication. documented in this encounter Plan of Treatment Not on file documented as of this encounter Visit Diagnoses Not on filedocumented in this encounter Additional Health Concerns Assessment Noted Time PHQ-9 Depression Total Score: 0 11/01/19 3:00 PM HUMAN RESOURCES BENEFITS ASSISTANT documented as of this encounter Care Teams Oracle Specialist Relationship Specialty Start Date End Date Eligio Henley MD PCP - General Family Medicine 11/01/18 11/04/21 Kayy Waldrop APN, BLADDER TRIMMER [facility] [place] [place] [address] PCP - General Advanced Practice Nurse 11/05/21 11/11/21 Eligio Henley MD PCP - General Family Medicine 11/12/21 10/08/24 Manisha Lopez Behavioral Health Navigator 11/17/18 documented as of this encounter
--- OUTSIDE RECORDS SUMMARY | 2025-07-20 12:50 | XMS_ITS | Encounter Summary ---
Author Organization [facility] Address [address] [facility] [place] [address] Phone Care Team Providers Care Paster Hat Lining Name Role Phone JonhManisha Shawn M MD Primary Care Provider [phone] Reason for Visit * Reason Comments Medication Refill Encounter Details Date Type Department Care Team (Late st Contact Info) Description 01/19/2022 Refill [facility] Medical [facility] - Family Medicine [facility] [address] [place] [address] Eligio Henley MD [address] [place] [address] Medication Refill Social History Tobacco Use Types [...] on file Legal Sex Female 4:02 AM LANGUAGE INSTRUCTOR Gender Identity Not on file Sexual Orientation Not on file 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 No / Unsure 01/07/2022 9:46 AM CDT documented as of this encounter Miscellaneous Notes * Telephone Encounter - Rosalina kendrick RN - 01/20/2022 9:51 AM CDT Medication failed the protocol, provider to review and approve the medication order if appropriate. Requested Prescriptions Pending Prescriptions Disp Refills gabapentin (NEURONTIN) 600 MG Tablet [Pharmacy Med Name: GABAPENTIN 600MG TABLETS] 90 Tablet 0 Sig: TAKE 1 TABLET BY MOUTH THREE TIMES DAILY Not Delegated - Anticonvulsants Excluding Benzodiazepines Protocol Failed - 01/19/2022 11:06 AM Failed - This refill cannot be delegated Passed - Visit with relevant provider in past 12 months or upcoming 90 days Recent Visits Date Type Provider Dept 01/07/22 Office Visit Iris Baron, [facility] 11/27/21 Telemedicine [facility] ROPINIROLE 0.25MG TABLETS] 60 Tablet 0 Sig: Take 2 Tablets by mouth nightly as needed. Antiparkinson Dopaminergics and COMT Protocol Passed - 01/19/2022 11:06 AM Passed - Visit with relevant provider in the past 9 months or upcoming 90 days Recent Visits Date Type Provider Dept 01/07/22 Office Visit Iris Baron PAC [facility] 09/16/21 Office Visit Eligio Henley [...] Clinician-entered: BP Readings from Last 3 Encounters: 01/07/22 122/82 09/16/21 122/68 05/08/21 128/66 Patient-entered: No data recorded documented in this encounter Plan of Treatment Not on file documented as of this encounter Visit Diagnoses Diagnosis Fibromyalgia Mylagia and myositis, unspecified Numbness and tingling in both hands Restless leg syndrome Restless legs syndrome (RLS) documented in this encounter Additional Health Concerns Assessment Noted Time PHQ-9 Depression Total Score: 0 11/01/19 19 3:00 PM LANGUAGE INSTRUCTOR documented as of this encounter Care Teams Paster Hat Lining Relationship Specialty Start Date End Date Eligio Henley MD [place] PCP - General Family Medicine 11/12/21 10/08/24 Manisha Lopez Behavioral Health Navigator 11/17/18 documented as of this encounter
--- OUTSIDE RECORDS SUMMARY | 2025-07-20 12:50 | XMS_ITS | Encounter Summary ---
Author Organization [facility] Address [address] [facility] [address] Phone Care Team Providers Care Note Keeper Name Role Phone AdelineManisha ponce Shawn M MD Primary Care Provider [phone] Reason for Visit * Reason Comments Medication Refill Encounter Details Date Type Department Care Team (Late Contact Info) Description 08/14/2022 [facility]ill [facility] [address] [place] [address] Eligio Henley MD [address] [place] [address] Medication Refill Social History Tobacco Use Types [...] on file Legal Sex Female 4:02 AM ALL SOURCE INTELLIGENCE ANALYST Gender Identity Not on file Sexual Orientation Not on file 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 Requested Prescriptions Pending Prescriptions Disp Refills Victoza 18 MG/3ML Solution Pen-injector [Pharmacy Med Name: VICTOZA 18MG/3ML INJ PEN 3ML(2PACK)] 18mL 1 Sig: ADMINISTER 1.2 MG UNDER THE SKIN DAILY GLP-1 Agonists Protocol Failed - 08/14/2022 9:09 AM Failed - Lipid panel result on file in [...] Range Status 05/08/2021 101.2 <130 mg/dL Final Failed - GFR on record in [...] requirements Future Appointments Date Type Provider Dept 08/25/22 Appointment Luis Enrique Agarwal MD [facility] 09/24/22 Appointment Eligio Henley MD [facility] Showing future appointments within next 90 days and meeting all other requirements Passed - HgA1C result on record in past 6 months HGB-A1C Date Value Ref Range Status 06/22/2022 10.1 (A) 4 - 6 Final documented in this encounter Plan of Treatment Not on file documented as of this encounter Visit Diagnoses Not on filedocumented in this encounter Additional Health Concerns Assessment Noted Time PHQ-9 Depression Total Score: 0 11/01/19 19 3:00 PM ALL SOURCE INTELLIGENCE ANALYST documented as of this encounter Care Teams Note Keeper Relationship Specialty Start Date End Date Eligio Henley MD [place] PCP - General Family Medicine 11/12/21 10/08/24 Manisha Lopez Behavioral Health Navigator 11/17/18 documented as of this encounter
--- OUTSIDE RECORDS SUMMARY | 2025-07-20 12:50 | XMS_ITS | Encounter Summary ---
Author Organization [facility] Address [address] [facility] [place] [address] Phone Care Team Providers Care Comb Machine Operator Name Role Phone Manisha Lopez Shawn M MD Primary Care Provider [phone] Reason for Visit * Reason Comments Medication Refill Encounter Details Date Type Department Care Team (Late st Contact Info) Description 03/31/2022 Refill [facility] [address] [place] [address] Eligio Henley MD [address] [place] [address] Medication Refill Social History Tobacco Use Types [...] on file Legal Sex Female 4:02 AM ENTRY CLERK Gender Identity Not on file Sexual Orientation Not on file 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 Assessment: See previous notes in encounter. Patient notified of previous recommendations. Patient has been taking clonazepam consistently, evensince December 2021. Patient is also currently taking tramadol. Patient says that she has even needed to take 2 clonazepam daily at the same time for her symptoms. Patient does not feel that increased dose of fluoxetine is not helping. Symptoms are not worse but has not seen improvement. Dose was increased in January 2022. See Office visit from 02/19/22. Recommendation: -Please advise on provider recommendations on clonazepam and tramadol. -Please advise if provider would like to see patient sooner. All Patient Appointments Provider Department Dept Phone 04/20/2022 2:45 PM Eligio Henley [facility] [phone] -Pharmacy verified. -Patient transferred to Medication Management for Adderral refill request. * Telephone Encounter - Rosalina Mcneil RN - 03/31/2022 4:52 PM CDT March 25, 2022 ? 11:00 PM Eligio Henley MD routed this conversation to [facility] Eligio Henley MD ?? 11:00 PM Note She has not used the clonazepam since december and I would like her to stay off of this. She is on thetramadol and should really only be on one of these. documented in this encounter Plan of Treatment Not on file documented as of this encounter Visit Diagnoses Diagnosis Anxiety Anxiety state, unspecified documented in this encounter Additional Health Concerns Assessment Noted Time PHQ-9 Depression Total Score: 0 11/01/19 19 3:00 PM ENTRY CLERK documented as of this encounter Care Teams Comb Machine Operator Relationship Specialty Start Date End Date Eligio Henley MD [place] PCP - General Family Medicine 11/12/21 10/08/24 Manisha Lopez Behavioral Health Navigator 11/17/18 documented as of this encounter
--- OUTSIDE RECORDS SUMMARY | 2025-07-20 12:50 | XMS_ITS | Encounter Summary ---
Author Organization [facility] Address [address] [place] [address] Phone Care Team Providers Care Reserve Operator Name Role Phone Manisha Lopez Shawn M MD Primary Care Provider [phone] Reason for Visit * Reason Comments Medication Refill Encounter Details Date Type Department Care Team (Late st Contact Info) Description 02/10/2022 Refill [facility] [address] [place] [address] Eligio Henley MD [address] [place] [address] Medication Refill Social History Tobacco Use Types [...] on file Legal Sex Female 4:02 AM ROLLER OPERATOR Gender Identity Not on file Sexual Orientation Not on file 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 Requested Prescriptions Pending Prescriptions Disp Refills Victoza 18 MG/3ML Solution Pen-injector [Pharmacy Med Name: VICTOZA 18MG/3ML INJ PEN 3ML(2PACK)] 18mL 1 Sig: ADMINISTER 1.2 MG UNDER THE SKIN DAILY GLP-1 Agonists Protocol Failed - 02/10/2022 7:07 AM Failed - HgA1C result on record [...] Dept 01/07/22 Office Visit Iris Baron PAC [facility] 11/27/21 Telemedicine Eligio Henley MD [facility] 09/16/21 Office Visit Eligio Henley MD [facility] [place] Showing recent visits within past 182 [...] Total Score: 0 11/01/19 19 3:00 PM ROLLER OPERATOR documented as of this encounter Care Teams Reserve Operator Relationship Specialty Start Date End Date Eligio Henley MD [place] PCP - General Family Medicine 11/12/21 10/08/24 Manisha Lopez Behavioral Health Navigator 11/17/18 documented as of this encounter
--- OUTSIDE RECORDS SUMMARY | 2025-07-20 12:50 | XMS_ITS | Encounter Summary ---
Author Organization [facility] Address [address] [place] [address] Phone Care Team Providers Care Animal Caretaker Supervisor Name Role Phone Manisha Lopez Shawn M MD Primary Care Provider [phone] Reason for Visit * Reason Comments Medication Refill Encounter Details Date Type Department Care Team (Late st Contact Info) Description 12/18/2021 Refill [facility] - Family Medicine [facility] [address] [place] [address] Eligio Henley MD [address] [place] [address] Medication Refill Social History Tobacco Use Types [...] on file Legal Sex Female 4:02 AM DOFFER Gender Identity Not on file Sexual Orientation Not on file 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 Requested Prescriptions Pending Prescriptions Disp Refills glimepiride (AMARYL) 4 MG Tablet [Pharmacy Med Name: GLIMEPIRIDE 4MG TABLETS] 90 Tablet 2 Sig: Take 1 Tablet by mouth every morning. Sulfonylureas Protocol Failed - 12/18/2021 3:56 AM Failed - HgA1C on record in past [...] 90 days and meeting all other requirements FLUoxetine (PROZAC) 40 MG Capsule [Pharmacy Med Name: FLUOXETINE 40MG CAPSULES] 90 Capsule 2 Sig: Take 1 Capsule by mouth daily. SSRI (6 Month Refill Only) Protocol Passed - 12/18/2021 3:56 AM Passed - No test in the past [...] adjustment disorder, OCD, or PTSD visit diagnosis ER documented in this encounter Plan of Treatment Not on file documented as of this encounter Visit Diagnoses Diagnosis Bipolar 1 disorder Bipolar I disorder, most recent episode (or current) unspecified Anxiety Anxiety state, unspecified documented in this encounter Additional Health Concerns Assessment Noted Time PHQ-9 Depression Total Score: 0 11/01/19 19 3:00 PM DOFFER documented as of this encounter Care Teams Animal Caretaker Supervisor Relationship Specialty Start Date End Date Eligio Henley MD [place] PCP - General Family Medicine 11/12/21 10/08/24 Manisha Lopez Behavioral Health Navigator 11/17/18 documented as of this encounter
--- OUTSIDE RECORDS SUMMARY | 2025-07-20 12:50 | XMS_ITS | Encounter Summary ---
Author Organization [facility] Address [address] [facility] [place] [address] Phone Care Team Providers Care Fax Machine Repairer Name Role Phone Manisha Lopez Shawn M MD Primary Care Provider [phone] Reason for Visit * Reason Comments Medication Refill Encounter Details Date Type Department Care Team (Late st Contact Info) Description 05/05/2022 Refill [facility] - Family Medicine [facility] [address] [place] [address] Eligio Henley MD [address] [place] [address] Medication Refill Social History Tobacco Use Types [...] on file Legal 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 Requested Prescriptions Pending Prescriptions Disp Refills metFORMIN (GLUCOPHAGE) 850 MG Tablet [Pharmacy Med Name: METFORMIN 850MG TABLETS] 180 Tablet 1 Sig: TAKE 1 TABLET BY MOUTH TWICE DAILY WITH MEALS Biguanides Protocol Failed - 05/05/2022 3:56 AM Failed - GFR on record in past 6 months GFR, EST. NONAFRICAN Date Value Ref Range Status 05/08/2021 >60 >=60 Final Passed - Visit with relevant provider in past 6 months or upcoming 90 days Recent Visits Date Type Provider Dept 02/19/22 Office Visit Eligio Henley MD [facility] 01/07/22 Office Visit Iris Baron, [facility] [place] 11/27/21 Telemedicine Eligio Henley MD [facility] Showing recent visits within past 182 days and meeting all other requirements Future Appointments Date Type Provider Dept 06/22/22 Appointment Eligio Henley MD [facility] Showing future appointments within next 90 days and meeting all other requirements Passed - HgA1C on record in past 6 months HGB-A1C Date Value Ref Range Status 02/20/2022 9.7 (A) 4 - 6 Final documented in this encounter Plan of Treatment Not on file documented as of this encounter Visit Diagnoses Diagnosis Type 2 diabetes mellitus with hypoglycemia without coma, without long-term current use of insulin documented in this encounter Additional Health Concerns Assessment Noted Time PHQ-9 Depression Total Score: 0 11/01/19 19 3:00 PM MAPPING EDITOR documented as of this encounter Care Teams Fax Machine Repairer Relationship Specialty Start Date End Date Eligio Henley MD [place] PCP - General Family Medicine 11/12/21 10/08/24 Manisha Lopez Behavioral Health Navigator 11/17/18 documented as of this encounter
--- OUTSIDE RECORDS SUMMARY | 2025-07-20 12:50 | XMS_ITS | Encounter Summary ---
Author Organization 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 This can be increased tothree times a day or can increase the strength to 7.5mg twice a day if still not effective the dosecan be increased more but to inform Dr. Head if she wants to increase her dose. For now, she can begintaking 1 1/2 tablets twice a day if she would like. If she does please update her chart with the new updated dose. documented in this encounter Plan of Treatment Upcoming Encounters Date Type Department Care Team (Late st Contact Info) Description 08/02/2025 1:00 PM CDT Office Visit [facility] Family Medicine - [place] [address] [place] [phone] Krystin Ibarra MD [address] [place], [place] [phone] documented as of this encounter Visit Diagnoses Not on filedocumented in this encounter Care Teams Geological Technician Relationship Specialty Start Date End Date Krystin Ibarra MD [address] [place], [place] [id number] PCP - General FAMILY PRACTICE 12/21/24 documented as of this encounter
[2025-07-20 13:01] VITALS: BP 152/82; PULSE 64; RESP 14; TEMP 36.9; O2SAT 100
[2025-07-20 13:08] LABS: EDSTREPNEGPOS1 Negative (Negative)
[2025-07-20 13:17] LABS: EDCOVIDSCREEN Negative (Negative); EDINFLUASCREEN Negative (Negative); EDINFLUBSCREEN Negative (Negative)
--- NOTE | 2025-07-20 13:22 | ED.URI ---
HPI - URI/Sore Throat General Chief Complaint: Upper Respiratory Infection Stated Complaint: Strep Time Seen by Provider: 07/20/25 13:12 Source: patient and RN notes reviewed Mode of arrival: ambulatory Limitations: no limitations History of Present Illness HPI Narrative: Patient presents today complaining of nasal congestion, postnasal drip, headache sore throat, body aches, watery eye since yesterday. Denies fever shortness of breath. 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 She has tried 1 dose of Yajaira and some Mucinex without much improvement. No history of asthma or COPD. Related Data Home Medications ?Medication ?Instructions ?Recorded ?Confirmed ?Last Taken ?Type insulin glargine 100 unit/mL 20 unit subcut DAILY 07/26/24 07/26/24 Unknown History subcutaneous solution (Lantus U-100 Insulin) cariprazine 1.5 mg capsule mg 04/05/25 Unknown History (Vraylar) insulin glargine 100 unit/mL (3 unit subcut 04/05/25 Unknown History mL) subcutaneous pen (Lantus Solostar U-100 Insulin) metformin 500 mg tablet,extended mg PO 04/05/25 Unknown History release 24 hr omeprazole 20 mg capsule,delayed mg 04/05/25 Unknown History release prazosin 1 mg capsule mg 04/05/25 Unknown History Allergies Allergy/AdvReac Type Severity Reaction Status Date / Time No Known Allergies Allergy Verified 07/20/25 13:09 [facility] Past Medical History Medical History GERD (gastroesophageal reflux disease) Anxiety and depression Obesity Diabetes mellitus HTN (hypertension) Surgical History Surgical History H/O inguinal hernia repair H/O umbilical hernia repair History of cholecystectomy Family History Family History Grandparent Heart disease Diabetes mellitus Alzheimers disease COPD (chronic obstructive pulmonary disease) Arthritis Social History Social History Smoking status: Never smoker Alcohol intake: current Alcohol use details: rare social Substance use: never Living arrangements: with family Gender identity (if verbalized by the patient): Female Exam Narrative: GENERAL: Mildly ill-appearing, well-nourished, and in no acute distress. HEAD: Normocephalic, atraumatic. EYES: EOMI. No redness or drainage. Conjunctivae normal. ENT: Mucous membranes pink and moist. Nares mildly congested with rhinorrhea. TMs normal bilaterally. Throat mildly erythematous. Tonsils 2 to 3+ without exudate. Uvula midline. NECK: Normal AROM. Supple. Bilateral anterior cervical chain lymphadenopathy. CHEST: No respiratory distress. Clear to auscultation. HEART: Regular rate and rhythm. No murmur appreciated. EXTREMITIES: Normal range of motion. No edema. SKIN: Warm, dry, no rash. Capillary refill normal. Normal skin turgor. NEURO: No focal deficits. Alert and oriented x3. Gait steady. PSYCH: Normal affect. No signs of depression or anxiety. Course Course Level of Care: Express Care Visit Vital Signs Vital signs: Vital Signs Temperature 98.5 F 07/20/25 13:01 Pulse Rate 64 07/20/25 13:01 Respiratory Rate 14 07/20/25 13:01 Blood Pressure 152/82 H 07/20/25 13:01 Pulse Oximetry 100 07/20/25 13:01 Oxygen Delivery Room Air 07/20/25 13:01 Temperature 98.5 F 07/20/25 13:01 Pulse Rate 64 07/20/25 13:01 Respiratory Rate 14 07/20/25 13:01 Blood Pressure 152/82 H 07/20/25 13:01 Pulse Oximetry 100 07/20/25 13:01 Oxygen Delivery Room Air 07/20/25 13:01 Reviewed MDM - URI/Sore Throat MDM Narrative Medical decision making narrative: 44-year-old female patient presents today complaining of nasal congestion, postnasal drip, headache sore throat, body aches, watery eye since yesterday. 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 She has tried 1 dose of Yajaira and some Mucinex without much improvement. No history of asthma or COPD. Upon exam, patient has a nasal congestion, rhinorrhea, and some swollen tonsils with erythema in the throat. Normal breath sounds. Negative influenza swab, COVID swab, and rapid strep swab. Strep culture pending. Symptoms likely viral in etiology. Discussed [id number] medication use and duration of illness. No prescription medications indicated at this time. Anticipatory guidance given. Vital signs stable. Differential Diagnosis Differential diagnosis: Likely upper respiratory infection, otitis media, viral infection, influenza, pharyngitis and other (Strep throat, COVID, seasonal allergies) Lab Data Attestation: I reviewed the patient's lab results. Labs: Lab Results 07/20/25 07/20/25 Range/Units 13:00 13:16 POC Influenza A Ag Negative (Negative) POC Influenza B Ag Negative (Negative) POC SARS CoV-2 Ag Negative (Negative) POC Grp A Strep Screen Negative (Negative) Critical Care Time Critical Care Time Critical Care Time: No Discharge Plan Discharge Clinical Impression: Upper respiratory infection Qualifiers: URI type: unspecified URI Qualified Code(s): J06.9 - Acute upper respiratory infection, unspecified Patient Disposition: Home Condition: Stable Instructions: Upper Respiratory Infection (DC) Additional Instructions: Your influenza, COVID-19, and rapid strep swab or negative today at [facility]. You will be notified in a few days if the culture comes back positive for strep, and appropriate antibiotics will be called in for you at that time. Your symptoms are likely due to a viral illness, which is not treated with antibiotics. Viral symptoms can be present for up to 7-10 days. Take Tylenol or ibuprofen for fever or pain, if able, based on pack dosing information. Rest and stay hydrated. Follow up with your PCP in 7 days if symptoms are not improving. Go to the ER immediately if you have any difficulty breathing or swallowing. Your blood pressure was elevated above 120/80 today at Urgent Care. This puts you above the threshold for follow up. Please schedule a followup visit with your personal physician as soon as possible, for further evaluation and treatment. Even blood pressure exceeding 120/80 may indicate pre-hypertension. Patient Language: [place] Prescriptions: No Action insulin glargine [Lantus U-100 Insulin] 100 unit/mL Solution 20 unit SUBCUT DAILY prazosin 1 mg capsule omeprazole 20 mg capsule,delayed release(DR/EC) metformin 500 mg tablet extended release 24 hr PO insulin glargine [Lantus Solostar U-100 Insulin] 100 unit/mL (3 mL) insulin pen SUBCUT Vraylar 1.5 mg capsule Follow-up/Referrals: Fred,Krystin Elkins MD [Primary Care Provider, Unknown] Time of Disposition: 13:22
== END 2025-07-20 13:25 | disposition home or self-care (01) ==
PROVIDERS: Emergency Provider Nurse Practitioner; PCP Student in an Organized Health Care Education/Training Program
DX: J06.9 Acute upper respiratory infection, unspecified (principal); E11.9 Type 2 diabetes mellitus without complications; I10 Essential (primary) hypertension; Z20.822 Contact with and (suspected) exposure to COVID-19
CPT/HCPCS: 87081; 87426; 87804; 87880; 99213; G0463

== ENCOUNTER 2025-10-09 09:45 | Emergency (ER) | payer SELFPAY ==
--- NOTE | 2025-10-09 09:48 | ED_ITS ---
HPI - URI/Sore Throat General Chief Complaint: Upper Respiratory Infection Stated Complaint: RSV ? Source: patient and RN notes reviewed Mode of arrival: ambulatory Limitations: no limitations History of Present Illness HPI Narrative: Patient is a 44-year-old female who presents to the [facility] with multiple complaints. 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 Patient states she is on day 2 of her symptoms. She endorses cough, congestion, sore throat, ear pain, and generalized body aches. She reports a frequent nonproductive cough. Denies chest pain or shortness of breath. Reports bilateral ear pain, worse on the right than the left. She also endorses headache and sore throat. She is unsure of known fever but reports chills. Related Data Home Medications ?Medication ?Instructions ?Recorded ?Confirmed ?Last Taken ?Type insulin glargine 100 unit/mL 20 unit subcut DAILY 12/1807/26/24 Unknown History subcutaneous solution (Lantus U-100 Insulin) cariprazine 1.5 mg capsule mg 04/05/25 Unknown Histor y (Vraylar) insulin glargine 100 unit/mL (3 unit subcut 04/05/25 Unknown History mL) subcutaneous pen (Lantus Solostar U-100 Insulin) metformin 500 mg tablet,extended mg PO 04/05/25 Unkno wn History release 24 hr omeprazole 20 mg capsule,delayed mg 04/05/25 Unknown History release prazosin 1 mg capsule mg 04/05/25 Unknown History Allergies Allergy/AdvReac Type Severity Reaction Status Date / Time No Known Allergies Allergy Verified 10/09/25 09:54 Review of Systems Review of Systems: CONSTITUTIONAL: Denies fever, but reports chills. EYES: Denies visual changes, redness, or discharge. ENT: Reports otalgia and sore throat. Reports congestion CARDIOVASCULAR: Denies chest pain, palpitations, or edema. RESPIRATORY: Reports cough but denies dyspnea. GASTROINTESTINAL: Denies abdominal pain, nausea, vomiting, or diarrhea. GENITOURINARY: Denies dysuria or hematuria. SKIN: Denies rash or itching. MUSCULOSKELETAL: Denies back pain and joint pain, but reports myalgia. NEUROLOGIC: Reports headache but denies numbness or weakness. Pertinent positives per HPI. [facility] Past Medical History Medical History GERD (gastroesophageal reflux disease) Anxiety and depression Obesity Diabetes mellitus HTN (hypertension) Surgical History Surgical History H/O inguinal hernia repair H/O umbilical hernia repair History of cholecystectomy Family History Family History Grandparent Heart disease Diabetes mellitus Alzheimers disease COPD (chronic obstructive pulmonary disease) Arthritis Social History Social History Smoking status: Never smoker Alcohol intake: current Alcohol use details: rare social Substance use: never Living arrangements: with family Gender identity (if verbalized by the patient): Female Comments At the time of my signature, I reviewed and agree with the nursing past medical, surgical, social, and family history. There is no relevant family history pertinent to the patient complaint. Exam Narrative: GENERAL: This is a well-nourished, well-developed patient, in no apparent distress. HEAD: normocephalic, atraumatic. EYES: Sclera clear/white. Vision is grossly intact. EARS: External ears normal. TMs normal without perforation. Hearing grossly intact. NOSE: External nose normal. Nasal rhinorrhea. THROAT: Mucous membranes moist, oropharyngeal erythema. NECK: Neck supple, non-tender without lymphadenopathy, masses or thyromegaly. CARDIOVASCULAR: Regular rate and rhythm without murmurs, gallops, or rubs. RESPIRATORY: Clear to auscultation. Breath sounds equal bilaterally. No wheezes, rales, or rhonchi. GASTROINTESTINAL: Abdomen soft, non-tender, nondistended. Bowel sounds are active. No hepato-splenomegaly, or palpable masses. No guarding. SKIN: warm, intact with no suspicious lesions or rash, good texture and turgor. NEURO: awake, alert, and oriented to person, place and time. There were no obvious focal neurologic abnormalities. Course Course Level of Care: Express Care Visit Vital Signs Vital signs: Vital Signs Temperature 97.5 F L 10/09/25 10:01 Pulse Rate 83 10/09/25 10:01 Respiratory Rate 18 10/09/25 10:01 Blood Pressure 137/75 10/09/25 10:01 Pulse Oximetry 98 10/09/25 10:01 Oxygen Delivery Room Air 10/09/25 10:01 Temperature 97.5 F L 10/09/25 10:01 Pulse Rate 83 10/09/25 10:01 Respiratory Rate 18 10/09/25 10:01 Blood Pressure 137/75 10/09/25 10:01 Pulse Oximetry 98 10/09/25 10:01 Oxygen Delivery Room Air 10/09/25 10:01 Reviewed [facility] Narrative Medical decision making narrative: Rapid strep is negative in the office; however we will send to the lab for confirmation; there is a small percentage chance that it can come back positive; if it is, we will call you in 2-3days; and your prescription will be call in to your pharmacy. However, there is NO indication for antibiotic at this time. -Increase your fluids and Vitamin C. -Oral rinses such as: Salt water gargles and/or may use topical anesthetic (eg. Chloraseptic spray) or lozenges to relieve dryness or throat pain. -Take tylenol and ibuprofen as needed for pain and fever as directed. -Frequent hand washing or hand bucket turner is one of the best ways to prevent spread of infection. -Follow up with primary care provider in 2-3 days if condition is not improving or seek ER visit if your child starts breathing fast/has trouble breathing, is not drinking enough fluids, muffle voice, difficulty opening the mouth or will not wake up or will not interact with you. Differential Diagnosis Differential Diagnosis: strep, pharyngitis, viral illness, sinusitis Lab Data [facility] Lab Attestation statement: I personally reviewed the patient's lab results. Critical Care Time Critical Care Time Critical Care Time: No Discharge Plan Discharge Clinical Impression: Viral illness Patient Disposition: Home Condition: Stable Instructions: Viral Syndrome (ED) Additional Instructions: Rapid strep is negative in the office; however we will send to the lab for confirmation; there is a small percentage chance that it can come back positive; if it is, we will call you in 2-3days; and your prescription will be call in to your pharmacy. However, there is NO indication for antibiotic at this time. -Increase your fluids and Vitamin C. -Oral rinses such as: Salt water gargles and/or may use topical anesthetic (eg. Chloraseptic spray) or lozenges to relieve dryness or throat pain. -Take tylenol and ibuprofen as needed for pain and fever as directed. -Frequent hand washing or hand bucket turner is one of the best ways to prevent spread of infection. -Follow up with primary care provider in 2-3 days if condition is not improving or seek ER visit if your child starts breathing fast/has trouble breathing, is not drinking enough fluids, muffle voice, difficulty opening the mouth or will not wake up or will not interact with you. Patient Language: [place] Prescriptions: New fluticasone propionate [Flonase Allergy Relief] 50 mcg/actuation spray,suspension 1 spray intranasal BID Qty: 16 0RF Rx Instructions: administer into each nostril benzonatate 100 mg capsule 100 mg PO BID PRN (Reason: cough) Qty: 10 0RF No Action insulin glargine [Lantus U-100 Insulin] 100 unit/mL Solution 20 unit SUBCUT DAILY prazosin 1 mg capsule omeprazole 20 mg capsule,delayed release(DR/EC) metformin 500 mg tablet extended release 24 hr PO insulin glargine [Lantus Solostar U-100 Insulin] 100 unit/mL (3 mL) insulin pen SUBCUT Vraylar 1.5 mg capsule Follow-up/Referrals: Fred,Krystin Elkins MD [Primary Care Provider, Unknown] Stand Alone Forms: Work/School Release IP Time of Disposition: 10:17
[2025-10-09 10:01] VITALS: BP 137/75; PULSE 83; RESP 18; TEMP 36.4; O2SAT 98
[2025-10-09 11:01] LABS: EDCOVIDSCREEN Negative (Negative); EDINFLUASCREEN Negative (Negative); EDINFLUBSCREEN Negative (Negative)
[2025-10-09 11:01] LABS: EDSTREPNEGPOS1 Negative (Negative)
--- OUTSIDE RECORDS SUMMARY | 2025-10-09 11:03 | XMS_ITS | Clinical Summary ---
Author Organization [facility] Address [address] [place] [address] Care Team Providers Care Fly Finisher Name Role Phone Krystin Cash MD Primary Care Provider + Allergies No known active allergies Medications levonorgestrel (LILLETTA) 20.1 mcg/day IUD 1 Intra Uterine Device by Intrauterine route. 5 12/17/19 33 Active Continuous Glucose Jockey Agent (FREESTYLE AURY 3 READER) DeviceIndicatio ns:Type 2 diabetes mellitus without complication, with long-term current use of insulin ([facility]) Use to check blood sugars 1 each 5 Active Insulin Pen Needle (PEN NEEDLES) 31G X 6 MM MiscIndications :Type 2 diabetes mellitus without complication, with long-term current use of insulin ([facility]) Use daily with insulin 200 each 3 5 Active omeprazole (PRILOSEC) 20 MG capsuleIndicati ons:Gastroesoph ageal reflux disease, unspecified whether esophagitis present Take 1 capsule (20 mg total) by mouth daily. 90 capsule 3 5 02/27/20 26 Active Continuous Glucose Sensor (FREESTYLE AURY 3 SENSOR) MiscIndications :Type 2 diabetes mellitus without complication, with long-term current use of insulin ([facility]) Replace every 2 weeks to check blood sugar 2 each 5 5 Active cariprazine (VRAYLAR) 3 MG capsuleIndicati ons:Moderate episode of recurrent major depressive disorder ([facility]) Take 1 capsule (3 mg total) by mouth daily. 90 capsule 3 5 06/18/20 26 Active prazosin (MINIPRESS) 2 MG capsuleIndicati ons:VISHNU (generalized anxiety disorder),PTSD (post-traumatic stress disorder) Take 1 capsule (2 mg total) by mouth nightly at bedtime. 90 capsule 3 5 06/18/20 26 Active metFORMIN ER (GLUCOPHAGE-XR) 500 MG 24 hr tabletIndicatio ns:Type 2 diabetes mellitus without complication, without long-term current use of insulin ([facility] HHS/[facility]) Take 1 tablet (500 mg total) by mouth 2 (two) times a day. 180 tablet 5 Active dapagliflozin (FARXIGA) 10 MG tabletIndicatio ns:Type 2 diabetes mellitus without complication, with long-term current use of insulin ([facility] HHS/HCC) Take 1 tablet (10 mg total) by mouth daily. 90 tablet 5 Active insulin glargine (LANTUS SOLOSTAR) 100 UNIT/ML injection (PEN)Indication s:Type 2 diabetes mellitus without complication, with long-term current use of insulin ([facility] HHS/HCC) Inject 60 Units into the skin nightly at bedtime. 60 mL 5 Active busPIRone (BUSPAR) 10 MG tabletIndicatio ns:VISHNU (generalized anxiety disorder) TAKE 1 TABLET BY MOUTH THREE TIMES DAILY 270 tablet 5 Active valACYclovir (VALTREX) 500 MG tabletIndicatio ns:Genital herpes simplex, unspecified site Take 1 tablet by mouth once daily 14 tablet 5 Active dulaglutide (TRULICITY) 1.5 MG/0.5ML injectionIndica tions:Type 2 diabetes mellitus without complication, with long-term current use of insulin ([facility]) Inject 1.5 mg into the skin once a week. 12 mL 5 Active Active Problems Problem Noted Date Diagnosed [...] complication, with long-term current use of insulin 12/21/2024 Overview (08/02/2025): A1c to 9.9% in 02/2025 down from 11% in August. Historically not controlled. On metformin. Rybelsus discontinued for indigestion. Metformin at the low-dose tolerated but higher doses because loose stools. Victoza not tolerated due to nausea and GI upset. Blood sugars remain high but overall improved since starting Trulicity. Also taking Lantus 70 units daily. Has not been on Farxiga. An ophthalmologic examination is scheduled for later this month due to changes in vision, including increased blurriness. Assessment & Plan (08/02/2025 2:33 PM CDT): Chronic. A1c was 8.5 in May 2025. Recent illness and increased appetite noted. - Increase Trulicity dosage - Add Farxiga - Reduce insulin to 6 units - A1c test next month Assessment & Plan (06/18/2025 2:33 PM CDT): [...] Victoza. Assessment & Plan (12/21/2024 11:09 AM RECRUITER): A1c 11%. Not controlled. Will restart metformin 500 mg daily. Also will start Ozempic 0.25 mg weekly and increase to 0.5 mg after 1 month. Ordered routine labs. Discussed dietary changes. Foot exam 12/21/2024. VISHNU (generalized anxiety disorder) 12/21/2024 Overview (08/02/2025): - She has difficulty finding a psychiatrist available on weekends. - Previously, lorazepam and Xanax were effective for anxiety. - Buspirone, Vraylar, and hydroxyzine were ineffective. - Despite efforts, she has not found a psychiatrist who accepts [facility] and has not visited the walk-in psych clinic. - Increased prazosin has not helped with nightmares, though sleep has improved. Assessment & Plan (08/02/2025 2:33 PM CDT): Chronic. Buspirone and Vraylar ineffective. Hydroxyzine tried but ineffective. - Referral to walk-in psychiatric clinic Assessment & Plan (06/18/2025 2:33 PM CDT): [...] past. Assessment & Plan (12/21/2024 11:10 AM RECRUITER): Not controlled. Ideally would like to start [...] 07/05/2013 Assessment & Plan (12/21/2024 11:09 AM RECRUITER): Discussed dietary and lifestyle changes. Encounters Date Type Department Care Team Description 09/05/2025 Orders Only [facility] Family [facility] [address] [place] [address] Whitney Yusuf MA 08/28/2025 Results Follow-Up [facility] - [place] [address] [place] [address] Krystin Cash MD COMPREHENSIVE METABOLIC PANEL, CBC W/DIFF AUTOMATED, THYROXINE, FREE (FT4), Additional followed-up results: 2 08/24/2025 1:24 PM CDT - 08/24/2025 11:59 PM CDT Hospital Encounter [facility] [address] [place] [address] Krystin Cash MD Discharge Disposition: Home or Self Care (Routine Discharge) 08/24/2025 Travel 08/15/2025 1:40 PM CDT Office Visit [address] [place] [address] Krystin Cash MD Seizure Re-evaluation (Patient states she has been passing out intermittently for the last few months. Patient states she had an episode over the weekend, and those with her told her her eyes roll back in her head and she convulses, then has confusion upon waking and is not oriented to environment around her. Patient has hx of a seizure in the past. ) 08/15/2025 Travel 08/14/[address] [place] [address] Krystin Cash MD Problem 08/06/2025 MyChart Message Enc [address] [place] [address] Krystin Cash MD Yeast infection 08/02/2025 1:00 PM CDT Office Visit [address] [place] [address] Krystin Cash MD Follow Up (DM and anxiety. ) 08/02/2025 Scan HEALTH INFO SRVCS Scanned, [facility] 08/02/2025 Travel 07/20/2025 Scan HEALTH INFO SRVCS Scanned, [facility] from Last 3 Months Immunizations Immunization Administration Dates Next Due Fluzone (IIV3, Trivalent, 0. 5 ML Prefilled Syringe) 08/02/2025 Hepatitis A (Generic) 09/22/2016,08/13/2016 Hepatitis A/Hepatitis B(Twinrix) 09/22/2016,07/26 Influenza Adult (Generic) 07/09/2022,,07/08/2017,2015 Pneumococcal (Pneumovax 23) 12/23/2016 Pneumococcal (Prevnar 20) 12/21/2024 Tdap (Generic) 08/13/2016 Family History Medical History Relation Comments Arthritis Maternal Grandmother She had rhu metoid (sp?) Suicidality Mother Relation Status Comments Brother Alive Father Unknown Maternal Grandmother Mother Social History Tobacco Use Types Packs/Day Years Used Date Smoking Tobacco: Former Passive Smoke Exposure: Past Smokeless Tobacco: Never Tobacco Cessation:Counseling Given: No Comments:Vaped for 3 years 06/18/25 restarted vaping again Alcohol Use Standard Drinks/Week Comments Not Currently 0 (1 standard drink = 0.6 oz pur e alcohol) Not enough to answer PHQ-2 Answer Date Recorded Patient Health Questionnaire-2 Score 6 08/02/2025 Comments No Sex and Gender Information Value Date Recorded Sex Assigned at Female 12/30/2024 1:17 PM RECRUITER Legal Sex Female 7:16 PM CDT Gender Identity Female 02/23/2025 9:36 AM CDT Sexual Orientation Not on file Last Filed Vital Signs Vital Sign Reading Time Taken Comments Blood Pressure 149/89 08/15/2025 1:42 PM CDT Pulse 78 08/15/2025 1:42 PM CDT Temperature 36.3 C (97.3 F) 08/15/2025 1:42 PM CDT Respiratory Rate 18 02/23/2025 9:38 AM CDT Oxygen Saturation 100% 08/15/2025 1:42 PM CDT Inhaled Oxygen Concentration - - Weight 131.2 kg (289 lb 3.2 oz) 08/15/2025 1:42 PM CDT Height 165.1 cm (5' 5) 08/15/2025 1:42 PM CDT Body Mass Index 48.13 08/15/2025 1:42 PM CDT Plan of Treatment Health Maintenance Due Date Last Done Comments Diabetes: Retinopathy Eye Exam 1998 Hepatitis C 1998 HPV Vaccines (1 - 3-dose SCDM series) 2007 Cervical Cancer Screening Pap with HPV Testing (Age 30 to 64) Every 5 Years 2010 Cervical Cancer Screening Pap Smear (Age 30 to 64) Every 3 Years 07/25/2016 07/25/2013 Cervical Cancer Screening with HPV 07/25/2016 Hepatitis B Vaccines (3 of 3 - Hep B Twinrix 3-dose series) 02/20/2017 09/22/2016, 08/13/2016 COVID-19 Vaccine (2 - season) 2025 01/29/2021 Hemoglobin A1C 12/19/2025 06/18/2025, 05/0 11/2024, 12/21/2024, Additional history exists Annual Physical 12/21/2025 12/21/2024 Kidney Health Evaluation 12/21/2025 12/21/2024 Lipid Panel 12/21/2025 12/21/2024 DTaP, Tdap and Td Vaccines (2 - Td or Tdap) 08/13/2026 08/13/2016 Mammogram Screening 12/30/2026 12/30/2024, 3 Hepatitis A Vaccines Aged Out 09/22/2016, 09/22/2016, 08/13/2016, Additional history exists No longer eligible based on patient's age to complete this topic Pneumococcal Vaccine: Pediatrics (0 to 5 Years) and At-Risk Patients (6 to 49 Years) Completed 12/21/2024, 12/23/2016 Influenza Adult Completed 08/02/2025, 06/25, 12/09/2018, Additional history exists PHQ-2 (Physician [place]) Completed 08/02/2025 Meningococcal B Vaccine Aged Out No l onger eligible based on patient's age to complete this topic Meningococcal Vaccine Aged Out No corby otto eligible based on patient's age to complete this topic RSV Immunizations Under 20 Months Aged Out No longer eligible based on patient's age to complete this topic Procedures Procedure Name Priority Date/Time Associated Diagnosis Comments THYROID STIM HORMONE TSH Today 08/27/2025 1:05 PM RECRUITER Seizure ([facility]) THYROXINE, FREE (FT4) Routine 08/27/2025 1:05 PM RECRUITER Seizure ([facility] HHS/HCC) CBC W/DIFF AUTOMATED Routine 08/27/2025 1:05 PM RECRUITER Seizure ([facility] HHS/HCC) COMPREHENSIVE METABOLIC PANEL Today 08/27/2025 1:05 PM RECRUITER Seizure ([facility]) CT HEAD WO CON Routine 08/24/2025 1:36 PM CDT Seizure ([facility]) HEMOGLOBIN, GLYCOSYLATED Routine 06/18/2025 Type 2 diabetes mellitus without complication, without long-term current use of insulin ([facility]) MG SCREENING W SHRUTI ZINA DIGI Routine 12/30/2024 1:44 PM RECRUITER Encounter for mammogram to establish baseline mammogram LIPID PANEL Routine 12/21/2024 10:24 AM RECRUITER Type 2 diabetes mellitus without complication, without long-term current use of insulin ([facility]) from Last 3 Months or Most Recently Relevant to Health Maintenance Results * (ABNORMAL) COMPREHENSIVE METABOLIC PANEL (08/27/2025 1:05 PM RECRUITER) GLUCOSE 318(H) 70 - 99 mg/dL [facility] BUN 10 6 - 24 mg/dL [facility] 1 CREATININE S/P/B 0.64 0.57 - 1.00 mg/dL [facility] 1 GFR ESTIMATE 112 >59 mL/min/1.7 3 [facility] 1 BUN CREATININE RATIO 16 9 - 23 [facility] 1 SODIUM S/P/B 135 134 - 144 mmol/L [facility] 1 POTASSIUM S/P/B 4.4 3.5 - 5.2 mmol/L [facility] 1 CHLORIDE S/P/B 98 96 - 106 mmol/L [facility] 1 CO2 22 20 - 29 mmol/L [facility] 1 CALCIUM S/P/B 8.7 8.7 - 10.2 mg/dL [facility] 1 TOTAL PROTEIN S/P/B 6.6 6.0 - 8.5 g/dL [facility] 1 ALBUMIN S/P/B 3.9 3.9 - 4.9 g/dL [facility] 1 GLOBULIN 2.7 1.5 - 4.5 g/dL [facility] 1 BILIRUBIN TOTAL S/P/B 0.4 0.0 - 1.2 mg/dL [facility] 1 ALKALINE PHOSPHATASE S/P/B 85 41 - 116 IU/L [facility] 1 AST 5 0 - 40 IU/L [facility] 1 ALT 8 0 - 32 IU/L [facility] 1 08/27/2025 1:05 PM RECRUITER 08/27/2025 Narrative [facility] - 08/28/2025 12:07 PM RECRUITER Performed at: 01 - [address] [id number] Assessment Rn: Rafa Pruett PhD, Phone: [phone] us Krystin Cash MD LABORATORY Final Re sult [facility] [address] [place] [address] [facility] 1 * CBC W/DIFF AUTOMATED (08/27/2025 1:05 PM RECRUITER) Pathologist [facility] WBC 9.5 3.4 - 10.8 x10E3/uL [facility] 1 RBC 4.82 3.77 - 5.28 x10E6/uL [facility] 1 HGB 13.6 11.1 - 15.9 g/dL [facility] 1 HCT 42.4 34.0 - 46.6 % [facility] 1 MCV 88 79 - 97 fL [facility] 1 MCH 28.2 26.6 - 33.0 pg [facility] 1 MCHC 32.1 31.5 - 35.7 g/dL [facility] 1 RDW 12.3 11.7 - 15.4 % [facility] 1 PLATELET COUNT 216 150 - 450 x10E3/uL [facility] 1 NEUTROPHILS % 65 Not Estab. % [facility] 1 LYMPHOCYTES % 24 Not Estab. % [facility] 1 MONOCYTES % 7 Not Estab. % [facility] 1 EOSINOPHILS % 2 Not Estab. % [facility] 1 BASOPHILS % 1 Not Estab. % [facility] 1 ABS. NEUTROPHILS 6.3 1.4 - 7.0 x10E3/uL [facility] 1 ABS. LYMPHOCYTES 2.3 0.7 - 3.1 x10E3/uL [facility] 1 MONOCYTES 0.6 0.1 - 0.9 x10E3/uL [facility] 1 ABS. EOSINOPHILS 0.2 0.0 - 0.4 x10E3/uL [facility] 1 ABS. BASOPHILS 0.1 0.0 - 0.2 x10E3/uL [facility] 1 ABS. IMMATURE GRANULOCYTES 1 Not Estab. % [facility] 1 ABS. IMMATURE GRANULOCYTES 0.1 0.0 - 0.1 x10E3/uL [facility] 1 08/27/2025 1:05 PM RECRUITER 08/27/2025 Narrative [facility] - 08/28/2025 12:07 PM RECRUITER Performed at: [address] [place] [id number] Assessment Rn: Rafa Pruett PhD, Phone: [phone] us Krystin Cash MD LABORATORY Final Re sult Performing Organization Address [facility] [place] [address] [facility] 1 * THYROXINE, FREE (FT4) (08/27/2025 1:05 PM RECRUITER) FREE T4 1.13 0.82 - 1.77 ng/dL [facility] 1 08/27/2025 1:05 PM RECRUITER 08/27/2025 Narrative [facility] - 08/28/2025 12:07 PM RECRUITER Performed at: [address] [place] [id number] Assessment Rn: Rafa Pruett PhD, Phone: [phone] us Krystin Cash MD LABORATORY Final Re sult Performing Organization Address [facility] de Phone Number [place] [address] [facility] * THYROID STIM HORMONE TSH (08/27/2025 1:05 PM RECRUITER) TSH 1.900 0.450 - 4.50 uIU/mL [facility] 1 08/27/2025 1:05 PM RECRUITER 08/27/2025 Narrative [facility] - 08/28/2025 12:07 PM RECRUITER Performed at: [address] [place] [id number] Assessment Rn: Rafa Pruett PhD, Phone: [phone] us Krystin Cash MD LABORATORY Final Re sult [facility] [address] [place] [address] [facility] 1 * CT HEAD WO CON (08/24/2025 1:36 PM CDT) Anatomical Region Laterality Modality Head Computed Tomogra phy 08/27/2025 11:1 9 AM RECRUITER Impressions 08/28/2025 4:12 PM RECRUITER IMPRESSION: No intracranial CT findings to account for patient's symptoms. The attending radiologist has reviewed the image(s) and agrees with the content of this report. Ordered By: KRYSTIN CASH Interpreted By: Flor Talley MD, 08/27/2025 11:19 AM Narrative 08/28/2025 4:12 PM RECRUITER [place] [id number] EXAMINATION: CT HEAD WO CON DATE: 08/24/2025 1:25 PM HISTORY: Seizure-like behavior with syncope and convulsions over the past 2 months. COMPARISON: None available TECHNIQUE: Computed tomography of the head was performed without intravenous contrast according to routine protocol without immediate complication. A dose lowering technique was used for this procedure, which may include, but is not limited to, dose reduction technique, automated exposure control, and/or the use of iterative reconstruction, in accordance with ALARA (As Low As Reasonably Achievable)/Image Gently principle. FINDINGS: No acute intracranial hemorrhage, abnormal extra-axial collection, mass effect, or midline shift is identified. The beckett-white matter differentiation is grossly preserved. The sella, pineal region, and craniocervical junction are unremarkable. The ventricles are normal in size and configuration. The basal cisterns are preserved. The calvarium is unremarkable. The orbits appear normal. The visualized paranasal sinuses and mastoid air cells are clear. Extracranial soft tissues are grossly unremarkable. Procedure Note Falko Kemp MD - 08/28/2025 [facility] [address] [facility] [place] [address] EXAMINATION: CT HEAD WO CON DATE: 08/24/2025 1:25 PM HISTORY: Seizure-like behavior with syncope and convulsions over the past2 months. COMPARISON: None available TECHNIQUE: Computed tomography of the head was performed withoutintravenous contrast according to routine protocol without immediatecomplication. A dose lowering technique was used for this procedure,which may include, but is not limited to, dose reduction technique,automated exposure control, and/or the use of iterative reconstruction, inaccordance with ALARA (As Low As Reasonably Achievable)/Image Gentlyprinciple. FINDINGS: No acute intracranial hemorrhage, abnormal extra-axial collection, masseffect, or midline shift is identified. The beckett-white matterdifferentiation is grossly preserved. The sella, pineal region, andcraniocervical junction are unremarkable. The ventricles are normal insize and configuration. The basal cisterns are preserved. The calvariumis unremarkable. The orbits appear normal. The visualized paranasalsinuses and mastoid air cells are clear. Extracranial soft tissues aregrossly unremarkable. IMPRESSION: No intracranial CT findings to account for patient'ssymptoms. The attending radiologist has reviewed the image(s) and agrees with thecontent of this report. Ordered By: KRYSTIN CASH Interpreted By: Flor Talley MD, 08/27/2025 11:19 AM us Krystin Cash MD CT Final Re sult * HEMOGLOBIN, GLYCOSYLATED (06/18/2025) HGB A1C 8.5 % [address], [place] 06/18/2025 us Krystin Cash MD LABORATORY Final Re sult [address] [place] [address] [place] [address], * MG SCREENING W SHRUTI ZINA DIGI (12/30/2024 1:44 PM RECRUITER) Anatomical Region Laterality Modality Breast Bilateral Mammography 01/03/2025 3:04 PM CDT Impressions 01/03/2025 3:06 PM CDT ===== IMPRESSION: ===== 1. Stable mammographic appearance with no new findings to suggest malignancy in either breast. Assessment: ACR BI-RADS 2 - BENIGN FINDING(S) Recommendation: 1:Routine Screening Bilateral Comments: Ordered By: KRYSTIN CASH Interpreted By: Anjelica Voss, 01/03/2025 3:04 PM Narrative 01/03/2025 3:06 PM CDT [address] [address] EXAMINATION: Digital bilateral screening mammogram with 3-D [...] sult * LIPID PANEL (12/21/2024 10:24 AM RECRUITER) CHOLESTEROL 152 <200 MG/DL 12/21/2024 3:39 PM RECRUITER [facility] TRIGLYCERIDES 85 <150 MG/DL 12/21/2024 3:39 PM RECRUITER [facility] HDL 43 >40 MG/DL 12/21/2024 3:39 PM RECRUITER [facility] [place] LDL-C 92 <100 MG/DL 12/21/2024 3:39 PM RECRUITER [facility] [place] VLDL CALCULATION 17 5 - 28 MG/DL 12/21/2024 3:39 PM [facility]CRUITER [facility] CHOL/HDL RATIO 3.5 0.0 - 4.0 12/21/2024 3:39 PM RECRUITER [facility] [place] LDL/HDL 2.1 0.41 - 2.13 12/21/2024 3:39 PM RECRUITER [facility] [place] NON HDL CHOLESTEROL 109 <140 MG/DL 12/21/2024 3:39 PM RECRUITER [facility] [place] 12/21/2024 10:2 4 AM RECRUITER Krystin Cash MD LABORATORY Final Re sult [facility] [place] [address] [facility] [place] [address], from Last 3 Months or Most Recently Relevant to Health Maintenance Insurance [facility] MEDICAID Care Teams Fly Finisher Relationship Specialty Start Date End Date Krystin Cash MD [address] [place] [id number] PCP - General FAMILY PRACTICE 12/21/24
--- OUTSIDE RECORDS SUMMARY | 2025-10-09 11:03 | XMS_ITS | Encounter Summary ---
Author Organization [facility] Address [address] [place] [address] Phone Care Team Providers Care Professional Caster Name Role Phone Manisha Lopez Shawn M MD Primary Care Provider [phone] Reason for Visit * Reason Comments Medication Refill Encounter Details Date Type Department Care Team (Late st Contact Info) Description 05/05/2022 Refill [facility] - Family Medicine [facility] [address] [place] [address] Eligio Henley MD [address] [place] [address] Medication Refill Social History Tobacco Use Types [...] on file Legal Sex Female 4:02 AM WARP YARN SORTER Gender Identity Not on file Sexual Orientation Not on file 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
--- OUTSIDE RECORDS SUMMARY | 2025-10-09 11:03 | XMS_ITS | Encounter Summary ---
Author Organization [facility] Address [address] [place] [address] Phone Care Team Providers Care Chief Mechanical Engineer Name Role Phone Eligio Henley MD Primary Care Provider [phone] Manisha Lopez [facility] Kayy WaldropN, CANAL EQUIPMENT MAINTENANCE SUPERVISOR Primary Care Pro vider Eligio Henley MD Primary Care Provider [phone] Reason for Visit * Reason Comments Medication Refill Encounter Details Date Type Department Care Team (Late st Contact Info) Description 04/20/2021 Refill [facility] - Family Medicine [facility] [address] [place] [address] Eligio Henley MD [address] [place] [address] Medication Refill Social History Tobacco Use Types [...] on file Legal Sex Female 4:02 AM CLIENT SERVICES MANAGER Gender Identity Not on file Sexual Orientation Not on file 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
--- OUTSIDE RECORDS SUMMARY | 2025-10-09 11:03 | XMS_ITS | Encounter Summary ---
Author Organization [facility] Address [address] [place] [address] Phone Care Team Providers Care Regulator Operator Name Role Phone Eligio Henley MD Primary Care Provider [phone] Manisha Lopez [facility] Kayy WaldropN, PLANT OPERATIONS COORDINATOR Primary Care Pro vider Eligio Henley MD Primary Care Provider [phone] Reason for Visit * Reason Comments Medication Refill Encounter Details Date Type Department Care Team (Late st Contact Info) Description 10/15/2020 Refill [facility] [address] [place] [address] Eligio Henley MD [address] [place] [address] Medication Refill Social History Tobacco Use Types [...] file Legal Sex Female 4:02 AM SENIOR FINANCE MANAGER Gender Identity Not on file Sexual Orientation Not on file 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 No / Unsure 09/16/2020 3:27 PM SENIOR FINANCE MANAGER documented as of this encounter Miscellaneous Notes * Telephone Encounter - Rosalina kendrick RN - 10/16/2020 8:37 AM CST Medication [...] months ago Acute pain of right knee [facility] - Eligio Bailey MD 7 months ago Anxiety [facility] Eligio Owens MD 11 months ago Type 2 diabetes mellitus with hypoglycemia without coma, without long-term current use of insulin ([facility]) [facility] Eligio Owens MD 1 year ago Arthralgia, unspecified joint [facility] Eligio Owens MD 1 year ago Bipolar 1 disorder (HCC) [facility] Eligio Owens MD Upcoming Appointments ALTERNATIVE ENERGY TECHNICIAN - Recent and Past Visits Recent Visits Date Type Provider Dept 08/09/20 Office Visit Eligio Henley MD [facility] 03/19/20 Telemedicine Eligio Henley MD [facility] 11/21/19 Office Visit Eligio Henley MD [facility] 08/09/19 Office Visit Eligio Henley MD [facility] Showing recent visits within past 460 [...] months ago Acute pain of right knee [facility] Eligio Bailey MD 7 months ago Anxiety [facility] Eligio Bailey MD 11 months ago Type 2 diabetes mellitus with hypoglycemia without coma, without long-term current use of insulin ([facility]) [facility] Eligio Owens MD 1 year ago Arthralgia, unspecified joint [facility] Eligio Owens MD 1 year ago Bipolar 1 disorder ([facility]) [facility] Eligio Owens MD Upcoming Appointments ALTERNATIVE ENERGY TECHNICIAN - Recent and Past Visits Recent Visits Date Type Provider Dept 08/09/20 Office Visit Eligio Henley MD [facility] 03/19/20 Telemedicine Eligio Henley MD [facility] 11/21/19 Office Visit Eligio Henley MD [facility] 08/09/19 Office Visit Eligio Henley MD [facility] Showing recent visits within past 460 [...] months ago Acute pain of right knee [facility] Eligio Bailey MD 7 months ago Anxiety [facility] Eligio Owens MD 11 months ago Type 2 diabetes mellitus with hypoglycemia without coma, without long-term current use of insulin ([facility]) [facility] Eligio Owens MD 1 year ago Arthralgia, unspecified joint [facility] Eligio Owens MD 1 year ago Bipolar 1 disorder (HCC) [facility] Eligio Bailey MD Upcoming Appointments ALTERNATIVE ENERGY TECHNICIAN - Recent and Past Visits Recent Visits Date Type Provider Dept 08/09/20 Office Visit Eligio Henley MD [facility] 03/19/20 Telemedicine Eligio Henley MD [facility] 11/21/19 Office Visit Eligio Henley MD [facility] 08/09/19 Office Visit Eligio Henley MD [facility] Showing recent visits within past 460 [...] months ago Acute pain of right knee [facility] Eligio Bailey MD 7 months ago Anxiety [facility] Eligio Owens MD 11 months ago Type 2 diabetes mellitus with hypoglycemia without coma, without long-term current use of insulin ([facility]) [facility] Eligio Owens MD 1 year ago Arthralgia, unspecified joint [facility] Eligio Owens MD 1 year ago Bipolar 1 disorder (HCC) [facility] Eligio Owens MD Upcoming Appointments ALTERNATIVE ENERGY TECHNICIAN - Recent and Past Visits Recent Visits [...] authorizing provider and meeting all other requirements OR FINANCE MANAGER documented in this encounter Plan of Treatment Not on file documented as of this encounter Visit Diagnoses Diagnosis Moderate episode of recurrent major depressive disorder- Primary Anxiety Anxiety state, unspecified documented in this encounter Additional Health Concerns Assessment Noted Time PHQ-9 Depression Total Score: 0 11/01/19 3:00 PM SENIOR FINANCE MANAGER documented as of this encounter Care Teams Regulator Operator Relationship Specialty Start Date End Date Eligio Henley MD PCP - General Family Medicine 11/01/18 11/04/21 Kayy Waldrop PAINT DIPPER, PLANT OPERATIONS COORDINATOR [address] [place] [address] PCP - General Advanced Practice Nurse 11/05/21 11/11/21 Eligio Henley MD PCP - General Family Medicine 11/12/21 10/08/24 Manisha Lopez Behavioral Health Navigator 11/17/18 documented as of this encounter
--- OUTSIDE RECORDS SUMMARY | 2025-10-09 11:03 | XMS_ITS | Encounter Summary ---
Author Organization [facility] Address [address] [place] [address] Phone Care Team Providers Care Accounting Assistant Name Role Phone Eligio Henley MD Primary Care Provider [phone] Manisha Lopez [facility] Kayy WaldropN, NURSING HOME ASSISTANT ADMINISTRATOR Primary Care Pro vider Eligio Henley MD Primary Care Provider [phone] Reason for Visit * Reason Comments Medication Refill Encounter Details Date Type Department Care Team (Late st Contact Info) Description 03/24/2021 Refill [facility] [address] [place] [address] Eligio Henley MD [address] [place] [address] Medication Refill Social History Tobacco Use Types [...] on file Legal Sex Female 4:02 AM GALLEY HAND Gender Identity Not on file Sexual Orientation Not on file 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 Not on file Not on file Not on file documented as of this encounter Plan of Treatment Not on file documented as of this encounter Visit Diagnoses Diagnosis Bipolar 1 disorder Bipolar I disorder, most recent episode (or current) unspecified Anxiety Anxiety state, unspecified documented in this encounter Additional Health Concerns Assessment Noted Time PHQ-9 Depression Total Score: 0 11/01/19 19 3:00 PM GALLEY HAND documented as of this encounter Care Teams Accounting Assistant Relationship Specialty Start Date End Date Eligio Henley MD PCP - General Family Medicine 11/01/18 11/04/21 Kayy Waldrop, RN BIRTHING, NURSING HOME ASSISTANT ADMINISTRATOR [address] [place] [address] PCP - General Advanced Practice Nurse 11/05/21 11/11/21 Eligio Henley MD PCP - General Family Medicine 11/12/21 10/08/24 Manisha Lopez Behavioral Health Navigator 11/17/18 documented as of this encounter
--- OUTSIDE RECORDS SUMMARY | 2025-10-09 11:03 | XMS_ITS | Encounter Summary ---
Author Organization [facility] Address [address] [place] [address] Phone Care Team Providers Care Make Up Arranger Name Role Phone Manisha Lopez Shawn M MD Primary Care Provider [phone] Reason for Visit * Reason Comments Medication Refill Encounter Details Date Type Department Care Team (Late st Contact Info) Description 01/08/2022 Refill [facility] [address] [place] [address] Eligio Henley MD [address] [place] [address] Medication Refill Social History Tobacco Use Types [...] on file Legal Sex Female 4:02 AM IMAGING ADMINISTRATOR Gender Identity Not on file Sexual Orientation Not on file 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 Not on file Not on file Not [...] Provider Dept 01/07/22 Office Visit Iris Baron, [facility] 11/27/21 Telemedicine Eligio Henley MD [...] Provider Dept 01/07/22 Office Visit Iris Baron, [facility] 11/27/21 Telemedicine Eligio Hen[facility] MD [facility] [...] Office Visit Iris Baron PAC [facility] 11/27/21 Telemedicine E[facility] MD [facility] [...] Dept 01/07/22 Office Visit Iris Baron, [facility] 11/27/21 Telemedicine Eligio Henley MD [facility] 09/16/21 Office Visit [facility] Showing recent visits within past 182 [...] Total Score: 0 11/01/19 19 3:00 PM IMAGING ADMINISTRATOR documented as of this encounter Care Teams Make Up Arranger Relationship Specialty Start Date End Date Eligio Henley MD [place] PCP - General Family Medicine 11/12/21 10/08/24 Manisha Lopez Behavioral Health Navigator 11/17/18 documented as of this encounter
--- OUTSIDE RECORDS SUMMARY | 2025-10-09 11:03 | XMS_ITS | Encounter Summary ---
Author Organization [facility] Address [address] [place] [address] Phone Care Team Providers Care Testing And Regulating Chief Name Role Phone Manisha Lopez Shawn M MD Primary Care Provider [phone] Reason for Visit * Reason Comments Medication Refill Encounter Details Date Type Department Care Team (Late st Contact Info) Description 03/07/2022 Refill [facility] [address] [place] [address] Eligio Henley MD [address] [place] [address] Medication Refill Social History Tobacco Use Types [...] on file Legal Sex Female 4:02 AM PHYSICIAN ALLERGIST IMMUNOLOGIST Gender Identity Not on file Sexual Orientation Not on file 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
--- OUTSIDE RECORDS SUMMARY | 2025-10-09 11:03 | XMS_ITS | Clinical Summary ---
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 Not on file Not on file Not [...] Last Done Comments Diabetes: Eye Exam 1980 Varicella Immunization (1 of 2 - 13+ 2-dose series) 1993 HPV/Cotest 2010 Hepatitis B Immunization (3 of [...] Discussion re Starting/Frequency of Mammograms Completed 04/15/2023 Human Papillomavirus (HPV) Immunization (No Doses Required) Completed Meningococcal Immunization (ACWY) Aged Out No longer eligible based on patient's age to complete this topic Rotavirus Immunization Aged Out No lo nger eligible based on patient's age to complete this topic Procedures Procedure Name Priority Date/Time Associated Diagnosis Comments POCT GLYCOSYLATED HEMOGLOBIN Routine 07/01/2023 1:23 PM CDT Type 2 diabetes mellitus with hypoglycemia without coma, without long-term current use of insulin (HCC) CHUCK SCREENING BILATERAL DIGITAL W CAD W SHRUTI Routine 04/15/2023 3:24 PM CDT Encounter for screening mammogram for malignant neoplasm of breast CMP (COMPREHENSIVE METABOLIC PANEL) 05/23/2022 12:00 AM CDT from Last 3 Months or Most Recently Relevant to Health Maintenance Results * (ABNORMAL) POCT GLYCOSYLATED HEMOGLOBIN (07/01/2023 1:23 PM CDT) HGB-A1C 11.4(A) 4 - 6 % Blood 07/01/2023 1:23 PM CDT us Eligio Henley MD POINT OF CARE TESTING (MANUAL) F inal Result * [facility] SCREENING BILATERAL DIGITAL W CAD W SHRUTI (04/15/2023 3:24 PM CDT) Anatomical Region Laterality Modality breast Bilateral Mammography 04/15/2023 3:20 PM CDT Narrative 04/16/2023 8:53 AM CDT - CHUCK SCREENING BILATERAL DIGITAL W CAD [...] next screening exam. Electronically signed by: Jonn Cunningham M.D. /penrad:04/15/2023 19:53:37 Paving Rammer(s): DAY Gomes)(Candida), [facility] letter sent: Normal Exam Reading location: REESE BI-RADS: 2 Benign Procedure Note Jonn Cunningham MD - 04/16/2023 - CHUCK SCREENING BILATERAL DIGITAL W CAD W SHRUTI BILATERAL DIGITAL SCREENING MAMMOGRAM 3D/2D WITH CAD WITH MEDIOLATERAL OBLIQUE CRANIOCAUDAL: 04/15/2023 The study was acquired using digital technology and interpreted from soft copy. Current study was also evaluated with [employer] version 7.2. 2D digital mammographic views, as [...] next screening exam. Electronically signed by: Jonn Cunningham M.D. /penrad:04/15/2023 19:53:37 Paving Rammer(s): RT Eliseo(Bettye)(M), [facility] letter sent: Normal Exam Reading location: REESE BI-RADS: 2 Benign us Damion Pinon APRN, ASSOCIATE PROFESSOR OF HISTORY IMG MAMMO ORDERA BLES Final Result * CMP (COMPREHENSIVE METABOLIC PANEL) (05/23/2022 12:00 AM CDT) 05/23/2022 us Not On File Provider CHEMISTRY ORDERABLES Final Result SCAN from Last 3 Months or Most Recently Relevant to Health Maintenance Insurance AMBETTER Care Teams Discharge Door Operator Relationship Specialty Start Date End Date Manisha Lopez Behavioral Health Navigator 11/17/18
--- OUTSIDE RECORDS SUMMARY | 2025-10-09 11:03 | XMS_ITS | Encounter Summary ---
Author Organization [facility] Address [address] [place] [address] Phone Care Team Providers Care Coil Winding Machines Set Up Mechanic Name Role Phone Manisha Lopez Shawn M MD Primary Care Provider [phone] Reason for Visit * Reason Comments Medication Refill Encounter Details Date Type Department Care Team (Late st Contact Info) Description 07/23/2022 Refill [facility] [address] [place] [address] Eligio Henley MD [address] [place] [address] Medication Refill Social History Tobacco Use Types [...] on file Legal Sex Female 4:02 AM TESTER REGULATOR Gender Identity Not on file Sexual Orientation Not on file 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 No / Unsure 07/09/2022 2:21 PM CDT documented as of this encounter Miscellaneous Notes * Telephone Encounter - hr Rosalina L, RN - 07/23/2022 2:54 PM [...] Ramos 02/19/22 Office Visit Eligio Henley MD [facility] 01/07/[facility] Tele[facility]icine Eligio Henley MD [facility] 09/16/21 Office Visit [facility] Showing recent visits within past 365 days and meeting all other requirements Future Appointments Date Type Provider Dept 08/03/22 Appointment Luis Enrique Agarwal MD [facility] 09/24/22 Appointment Eligio Henley MD [facility] Showing future appointments within next 90 [...] Total Score: 0 11/01/19 19 3:00 PM TESTER REGULATOR documented as of this encounter Care Teams Coil Winding Machines Set Up Mechanic Relationship Specialty Start Date End Date Eligio Henley MD [place] PCP - General Family Medicine 11/12/21 10/08/24 Manisha Lopez Behavioral Health Navigator 11/17/18 documented as of this encounter
--- OUTSIDE RECORDS SUMMARY | 2025-10-09 11:03 | XMS_ITS | Encounter Summary ---
Author Organization [facility] Address [address] [place] [address] Phone Care Team Providers Care Solar Resource Assessor Name Role Phone Manisha Lopez Shawn M MD Primary Care Provider [phone] Reason for Visit * Reason Comments Medication Refill Encounter Details Date Type Department Care Team (Late st Contact Info) Description 02/13/2023 Refill [facility] Family Medicine 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
--- OUTSIDE RECORDS SUMMARY | 2025-10-09 11:03 | XMS_ITS | Encounter Summary ---
Author Organization [facility] Address [address] [place] [address] Phone Care Team Providers Care Notcher Name Role Phone Manisha Lopez Shawn M MD Primary Care Provider Reason for Visit * Reason Comments Medication Refill Encounter Details Date Type Department Care Team (Late st Contact Info) Description 08/14/2022 Refill [facility] [address] [place] [address] Eligio Henley MD [address] [place] [address] Medication Refill Social History Tobacco Use Types [...] on file Legal Sex Female 4:02 AM CLEAN UP PERSON Gender Identity Not on file Sexual Orientation Not on file 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
--- OUTSIDE RECORDS SUMMARY | 2025-10-09 11:03 | XMS_ITS | Encounter Summary ---
Author Organization [facility] Address [facility] [place] [address] Care Team Providers Care Charge Weigher Name Role Phone Krystin Ibarra MD Primary Care Provider + Encounter Details Date Type Department Care Team (Late st Contact Info) Description 02/27/2025 AlwaySupport Message Enc [facility] Family Medicine [facility] [address] [place] [phone] Krystin Ibarra MD [address] [place] [address] [phone] My insulin Social History Tobacco Use Types [...] Sex Assigned at Female 12/30/2024 1:17 PM BRICK MACHINE OPERATOR Legal Sex Female 7:16 PM CDT Gender Identity Female 02/23/2025 9:36 AM CDT Sexual Orientation Not on file documented as of this encounter Plan of Treatment Not on file documented as of this encounter Visit Diagnoses Not on filedocumented in this encounter Care Teams Charge Weigher Relationship Specialty Start Date End Date Krystin Ibarra MD [address] [place] [id number] PCP - General FAMILY PRACTICE 12/21/24 documented as of this encounter
--- OUTSIDE RECORDS SUMMARY | 2025-10-09 11:03 | XMS_ITS | Encounter Summary ---
Author Organization [facility] Address [address] [place] [address] Phone Care Team Providers Care Advertising Director Name Role Phone Manisha Lopez Shawn M MD Primary Care Provider [phone] Reason for Visit * Reason Comments Medication Refill Encounter Details Date Type Department Care Team (Late st Contact Info) Description 08/13/2022 Refill [facility] [address] [place] [address] Eligio Henley MD [address] [place] [address] Medication Refill Social History Tobacco Use Types [...] on file Legal Sex Female 4:02 AM CHIEF ENGINEER PRODUCTION Gender Identity Not on file Sexual Orientation Not on file Occupation Industry Job 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
--- OUTSIDE RECORDS SUMMARY | 2025-10-09 11:03 | XMS_ITS | Encounter Summary ---
Author Organization [facility] Address [address] [place] [address] Phone Care Team Providers Care Director Of People Name Role Phone Eligio Henley MD Primary Care Provider [phone] Manisha Lopez [facility] Kayy WaldropN, AUDITOR Primary Care Pro vider Eligio Henley MD Primary Care Provider [phone] Reason for Visit * Reason Comments Medication Refill Encounter Details Date Type Department Care Team (Late st Contact Info) Description 12/31/2020 Refill [facility] [address] [place] [address] Eligio Henley MD [address] [place] [address] Medication Refill Social History Tobacco Use Types [...] on file Legal Sex Female 4:02 AM AEROPHYSICS ENGINEER Gender Identity Not on file Sexual Orientation Not on file 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 Industry 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 Date Job End Date 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 Not on file Not on file Not on file documented as of this encounter Miscellaneous Notes * Telephone Encounter - Maggie Bolton RN - 12/31/2020 1:01 PM CST Sent to PCP PHYSICS ENGINEER * Telephone Encounter - Maggie Bolton RN [...] months ago Acute pain of right knee [facility] - Eligio Bailey MD 9 months ago Anxiety [facility] Eligio Owens MD 1 year ago Type 2 diabetes mellitus with hypoglycemia without coma, without long-term current use of insulin (HCC) [facility] Eligio Owens MD 1 year ago Arthralgia, unspecified joint [facility] Eligio Owens MD 1 year ago Bipolar 1 disorder (HCC) [facility] Eligio Owens MD Upcoming Appointments DIRECTOR PRODUCT - Recent and Past Visits Recent Visits Date Type Provider Dept 08/09/20 Office Visit Eligio Henley MD [facility] 03/19/20 Telemedicine Eligio Henley MD [facility] 11/21/19 Office Visit Eligio Henley MD [facility] Showing recent visits within past 460 days with a meds authorizing provider and meeting all other requirements Future Appointments No visits were found meeting these conditions. Showing future appointments within next 90 days with a meds authorizing provider and meeting all other requirements PHYSICS ENGINEER documented in this encounter Plan of Treatment Not on file documented as of this encounter Visit Diagnoses Diagnosis Arthralgia, unspecified joint documented in this encounter Additional Health Concerns Assessment Noted Time PHQ-9 Depression Total Score: 0 11/01/19 3:00 PM AEROPHYSICS ENGINEER documented as of this encounter Care Teams Director Of People Relationship Specialty Start Date End Date Eligio Henley MD PCP - General Family Medicine 11/01/18 11/04/21 Kayy Waldrop, GEAR SHAPER, AUDITOR [address] [place] [address] PCP - General Advanced Practice Nurse 11/05/21 11/11/21 Eligio Henley MD PCP - General Family Medicine 11/12/21 10/08/24 Manisha Lopez Behavioral Health Navigator 11/17/18 documented as of this encounter
--- OUTSIDE RECORDS SUMMARY | 2025-10-09 11:03 | XMS_ITS | Clinical Summary ---
Author Organization [facility] Address [address] [place] [address] Care Team Providers Care Project Manager Finance Name Role Phone Eligio Henley MD Primary Care Provider [phone] Source Comments [facility],non-owned Affiliates and Associated Physician Practices is amultiple site organization consisting of ambulatory clinics and hospital sitesin [place], [place], [place] and [place]. This disclosure is being madepursuant to the Care Everywhere program and may not contain all information available regarding this patient. Last updated 18.[facility] [employer] Allergies No known active allergies Medications [...] Active vitamin D, ergocalciferol, (Drisdol) 1.25 MG (91712 UT) capsule TAKE 1 CAPSULE BY MOUTH [...] Health Maintenance Due Date Last Done Comments HEPATITIS C SCREENING 11/30/1998 DTAP/TDAP/TD VACCINES (1 - Tdap) 1999 HEPATITIS B VACCINE (1 of 3 - 19+ 3-dose series) 1999 HPV VACCINE (1 - 3-dose SCDM series) 2007 PAP with HPV 07/25/2018 07/25/2013 SCREENING FOR DIABETES 07/10/2024 DEPRESSION SCREENING 10/25/2024 MAMMOGRAM 04/15/2025 04/15/2023, 04/15/2023 COVID-19 VACCINE (2 - season) 2025 01/29/2021 INFLUENZA VACCINE (#1) 2025 2, 12/09/2018, 07/08/2017, Additional history exists ZOSTER VACCINE (1 of 2) 2030 HIV SCREENING Completed 01/03/2021 HIB VACCINE Aged [...] malignant neoplasm of the cervix Performed by [facility] INSURANCE BILL Comment:Bandar Trivedi , Label Stitcher (ASCP) Electronically Signed by [facility] INSURANCE BILL Comment:Jill Augustin MD, P athologist Comment . [facility] INSURANCE BILL Note [facility] INSURANCE BILL Comment: The Pap smear is a screening test designed to aid in the detection of premalignant and malignant conditions of the uterine cervix. It is not a diagnostic procedure and should not be used as the sole means of detecting cervical cancer. Both false-positive and false-negative reports do occur. . [facility] CPT Code Automation [facility] INSURANCE BILL Comment: This liquid based ThinPrep(R) pap test was screened with the use of an image guided system. Human papillomavirus High Risk Negative Negative [facility] INSURANCE BILL Comment: This high-risk HPV test detects thirteen high-risk types (16/18/31/33/35/39/45/51/52/56/58/59/68) without differentiation. . MICROSCOPIC CYTOLOGIC EXAMINATION OF SMEAR OF SPECIMEN FROM FEMALE GENITAL TRACT PREPARED USING PAPANICOLAOU TECHNIQUE / Unknown 07/25/2013 3:20 PM CDT 07/26/2013 2:41 AM CDT [facility]ative [facility] - 07/31/2013 8:06 PM CDT No. of containers..01 CYTYC Thin Prep Vial Resulting Agency Comment [address] [phone] Barbara Sharma DO LAB - PATHOLOGY/CYTOLO GY ORDERABLES Final Result [facility] INSURANCE BILL [address] [place] [address] from Last 3 Months or Most Recently Relevant to Health Maintenance Insurance MEDICAID - [facility] Care Teams Project Manager Finance Relationship Specialty Start Date End Date Eligio Henley MD PCP - General 11/03/18
--- OUTSIDE RECORDS SUMMARY | 2025-10-09 11:03 | XMS_ITS | Encounter Summary ---
Author Organization [facility] Address [address] [place] [address] Phone Care Team Providers Care Grocery Worker Name Role Phone Manisha Lopez Shawn M MD Primary Care Provider [phone] Reason for Visit * Reason Comments Medication Refill Encounter Details Date Type Department Care Team (Late st Contact Info) Description 01/19/2022 [facility]ill [facility] [address] [place] [address] Eligio Henley MD [address] [place] [address] Medication Refill Social History Tobacco Use Types [...] on file Legal Sex Female 4:02 AM ALMOND PASTE MOLDER Gender Identity Not on file Sexual Orientation Not on file 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 No / Unsure 01/07/2022 9:46 AM CDT documented as of this encounter Miscellaneous Notes * Telephone Encounter - Rosalina Mcneil RN - 01/20/2022 9:51 AM CDT Medication [...] Office Visit Iris Baron PAC [facility] [place] 09/16/21 Office Visit Eligio Hen[facility] MD [facility] [...] Total Score: 0 11/01/19 19 3:00 PM ALMOND PASTE MOLDER documented as of this encounter Care Teams Grocery Worker Relationship Specialty Start Date End Date Eligio Henley MD [place] PCP - General Family Medicine 11/12/21 10/08/24 Manisha Lopez Behavioral Health Navigator 11/17/18 documented as of this encounter
--- OUTSIDE RECORDS SUMMARY | 2025-10-09 11:03 | XMS_ITS | Encounter Summary ---
Author Organization [facility] Address [facility] [place] [address] Care Team Providers Care Healthcare Financial Analyst Name Role Phone Krystin Ibarra MD Primary Care Provider + Encounter Details Date Type Department Care Team (Late st Contact Info) Description 02/12/2025 [employer] Message Enc [facility] Family Medicine - [place] [address] [place] [id number] Krystin Ibarra MD [address] [place] [address] Anxiety meds Social History Tobacco Use Types [...] Sex Assigned at Female 12/30/2024 1:17 PM JEWELRY INSPECTOR Legal Sex Female 7:16 PM CDT [...] on filedocumented in this encounter Care Teams Healthcare Financial Analyst Relationship Specialty Start Date End Date Krystin Ibarra MD [address] [id number] PCP - General FAMILY PRACTICE 12/21/24 documented as of this encounter
--- OUTSIDE RECORDS SUMMARY | 2025-10-09 11:03 | XMS_ITS | Encounter Summary ---
Author Organization [facility] Address [address] [place] [address] Phone Care Team Providers Care Handbag Operator Name Role Phone Manisha Lopez Shawn M MD Primary Care Provider [phone] Reason for Visit * Reason Comments Medication Refill Encounter Details Date Type Department Care Team (Late st Contact Info) Description 11/23/2023 [facility]ill [facility] [address] [place] [address] Eligio Henley MD [address] [place] [address] Medication Refill Social History Tobacco Use Types [...] on file Legal Sex Female 4:02 AM IP LITIGATION PARALEGAL Gender Identity Not on file Sexual Orientation Not on file 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 No show her appointment in sep. No refills. LITIGATION PARALEGAL * Telephone Encounter - Rosalina Mcneil RN [...] Ramos 02/22/23 Office Visit Damion Pinon APRN, MERCHANDISER RETAIL REPRESENTATIVE [facility] Showing recent visits within past 365 days [...] Dept 07/01/23 Office Visit Eligio Henley MD [facility] 02/22/23 Office Visit Damion Pinon APRN, LIAT [facility] Showing recent visits within past 365 days [...] Dept 07/01/23 Office Visit Eligio Henley MD [facility] Showing recent visits within past 182 days and meeting all other requirements Future Appointments No visits were found meeting these conditions. Showing future appointments within next 90 days and meeting all other requirements Passed - Has an encounter in the past 6 months with a depression, anxiety, adjustment disorder, OCD, or PTSD visit diagnosis LITIGATION PARALEGAL documented in this encounter Plan of Treatment Not on file documented as of this encounter Visit Diagnoses Diagnosis Moderate episode of recurrent major depressive disorder Anxiety Anxiety state, unspecified documented in this encounter Additional Health Concerns Assessment Noted Time PHQ-9 Depression Total Score: 0 11/01/19 19 3:00 PM IP LITIGATION PARALEGAL documented as of this encounter Care Teams Handbag Operator Relationship Specialty Start Date End Date Eligio Henley MD [place] PCP - General Family Medicine 11/12/21 10/08/24 Manisha Lopez Behavioral Health Navigator 11/17/18 documented as of this encounter
--- OUTSIDE RECORDS SUMMARY | 2025-10-09 11:03 | XMS_ITS | Encounter Summary ---
Author Organization [facility] Address [address] [place] [address] Phone Care Team Providers Care Cash Grain Grower Name Role Phone Manisha Lopez Shawn M MD Primary Care Provider [phone] Reason for Visit * Reason Comments Medication Refill Encounter Details Date Type Department Care Team (Late st Contact Info) Description 12/18/2021 Refill [facility] [address] [place] [address] Eligio Henley MD [address] [place] [address] Medication Refill Social History Tobacco Use Types [...] on file Legal Sex Female 4:02 AM CLOAK ROOM ATTENDANT Gender Identity Not on file Sexual Orientation Not on file 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 Industry 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 Not on file Not on file Not [...] adjustment disorder, OCD, or PTSD visit diagnosis K ROOM ATTENDANT documented in this encounter Plan of Treatment Not on file documented as of this encounter Visit Diagnoses Diagnosis Bipolar 1 disorder Bipolar I disorder, most recent episode (or current) unspecified Anxiety Anxiety state, unspecified documented in this encounter Additional Health Concerns Assessment Noted Time PHQ-9 Depression Total Score: 0 11/01/19 19 3:00 PM CLOAK ROOM ATTENDANT documented as of this encounter Care Teams Cash Grain Grower Relationship Specialty Start Date End Date Eligio Henley MD [place] PCP - General Family Medicine 11/12/21 10/08/24 Manisha Lopez Behavioral Health Navigator 11/17/18 documented as of this encounter
--- OUTSIDE RECORDS SUMMARY | 2025-10-09 11:03 | XMS_ITS | Encounter Summary ---
Author Organization [facility] Address [address] [place] [address] Phone Care Team Providers Care Supervisor Cellars Name Role Phone Manisha Lopez Shawn M MD Primary Care Provider [phone] Reason for Visit * Reason Comments Medication Refill Encounter Details Date Type Department Care Team (Late st Contact Info) Description 03/31/2022 Refill [facility] [address] [place] [address] Eligio Henley MD [address] [place] [address] Medication Refill Social History Tobacco Use Types [...] on file Legal Sex Female 4:02 AM FUEL EFFICIENT AIRCRAFT DESIGNER Gender Identity Not on file Sexual Orientation Not on file Occupation Industry Job Start Date Job End Date 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 -Patient transferred to Medication Management for Adderral refill request. * Telephone Encounter - Rosalina Mcneil RN - 03/31/2022 4:52 PM CDT March 25, 2022 ? 11:00 PM Eligio Henley MD routed this conversation to [facility] Eligio Henley MD ?? 11:00 PM [...] Total Score: 0 11/01/19 19 3:00 PM FUEL EFFICIENT AIRCRAFT DESIGNER documented as of this encounter Care Teams Supervisor Cellars Relationship Specialty Start Date End Date Eligio Henley MD [place] PCP - General Family Medicine 1/19/22 12/15/24 Manisha Lopez Behavioral Health Navigator 11/17/18 documented as of this encounter
--- OUTSIDE RECORDS SUMMARY | 2025-10-09 11:03 | XMS_ITS | Encounter Summary ---
Author Organization [facility] Address [address] [place] [address] Phone Care Team Providers Care Casting Operator Helper Name Role Phone Manisha Lopez Shawn M MD Primary Care Provider Reason for Visit * Reason Comments Medication Refill Encounter Details Date Type Department Care Team (Late st Contact Info) Description 02/10/2022 [facility]ill [facility] [address] [place] [address] Eligio Henley MD [address] [place] [address] Medication Refill Social History Tobacco Use Types [...] on file Legal Sex Female 4:02 AM ASSISTANT PROJECT ENGINEER Gender Identity Not on file Sexual Orientation Not on file 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
--- OUTSIDE RECORDS SUMMARY | 2025-10-09 11:03 | XMS_ITS | Encounter Summary ---
Author Organization [facility] Address [address] [place] [address] Phone Care Team Providers Care Correction Worker Name Role Phone Manisha Lopez Shawn M MD Primary Care Provider [phone] Reason for Visit * Reason Comments Medication Refill Encounter Details Date Type Department Care Team (Late st Contact Info) Description 02/18/2022 Refill [facility] [address] [place] [address] Eligio Henley MD [address] [place] [address] Medication Refill Social History Tobacco Use Types [...] on file Legal Sex Female 4:02 AM VALUE STREAM COACH Gender Identity Not on file Sexual Orientation Not on file 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 No / Unsure 02/19/2022 9:50 AM CDT documented as of this encounter Functional Status documented as of this encounter Mental Status * Question Answer Entry Date Author BP 126/66 02/19/2022 10:20 AM CDT Prui tt, Sirisha Lopez Temp 97.5 02/19/2022 10:20 AM CDT Prui tt, Sirisha E Pulse 56 02/19/2022 10:20 AM CDT Prui tt, Sirisha E SpO2 98 02/19/2022 10:20 AM CDT Prui tt, Sirisha E documented in this encounter Miscellaneous Notes * Telephone Encounter [...] Total Score: 0 11/01/19 19 3:00 PM VALUE STREAM COACH documented as of this encounter Care Teams Correction Worker Relationship Specialty Start Date End Date Eligio Henley MD [place] PCP - General Family Medicine 11/12/21 10/08/24 Manisha Lopez Behavioral Health Navigator 11/17/18 documented as of this encounter
--- OUTSIDE RECORDS SUMMARY | 2025-10-09 11:03 | XMS_ITS | Encounter Summary ---
Author Organization [facility] Address [address] [place] [address] Phone Care Team Providers Care Java Development Manager Name Role Phone Manisha Lopez Shawn M MD Primary Care Provider [phone] Reason for Visit * Reason Comments Medication Refill Encounter Details Date Type Department Care Team (Late st Contact Info) Description 03/23/2022 Refill [facility] [address] [place] [address] Eligio Henley MD [address] [place] [address] Medication Refill Social History Tobacco Use Types [...] on file Legal Sex Female 4:02 AM OFFICE MACHINE TECHNICIAN Gender Identity Not on file Sexual Orientation Not on file 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 * Telephone Encounter - Dori eVga RN - 03/24/2022 8:27 AM CDT PDMP [...] Office Visit Iris Baron, [facility] [place] 11/27/21 Telemedicine Eligio Henley MD [facility] 09/16/21 Office Visit Eligio Henley MD [facility] 05/08/21 Office [facility] [place] Showing recent visits within past 365 [...] Office Visit Iris Baron, [facility] [place] 11/27/21 Telemedicine Eligio Henley MD [facility] [...] [facility] 01/07/22 Office Visit Iris Baron, [facility] [place] 11/27/21 Telemedicine Eligio Henley MD [...] [facility] 01/07/22 Office Visit Iris Baron, [facility] [place] 11/27/21 Telemedicine Eligio Henley MD [facility] 09/16/21 Office Visit Eligio Henley MD [facility] 05/08/21 Office [facility] [place] Showing recent visits within past 365 [...] Total Score: 0 11/01/19 19 3:00 PM OFFICE MACHINE TECHNICIAN documented as of this encounter Care Teams Java Development Manager Relationship Specialty Start Date End Date Eligio Henley MD [place] PCP - General Family Medicine 11/12/21 10/08/24 Manisha Lopez Behavioral Health Navigator 11/17/18 documented as of this encounter
--- OUTSIDE RECORDS SUMMARY | 2025-10-09 11:03 | XMS_ITS | Encounter Summary ---
Author Organization [facility] Address [address] [place] [address] Phone Care Team Providers Care Cyber Crime Investigator Name Role Phone Manisha Lopez Shawn M MD Primary Care Provider [phone] Reason for Visit * Reason Comments Medication Refill Encounter Details Date Type Department Care Team (Late st Contact Info) Description 10/23/2022 Refill [facility] [address] [place] [address] Eligio Henley MD [address] [place] [address] Medication Refill Social History Tobacco Use Types [...] on file Legal Sex Female 4:02 AM AIR TWIST OPERATOR Gender Identity Not on file Sexual Orientation Not on file 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 No / Unsure 09/24/2022 3:04 PM AIR TWIST OPERATOR documented as of this encounter Miscellaneous Notes [...] [place] 06/22/22 Office Visit Eligio Henley MD [facility] 02/19/22 Office Visit Eligio Henley MD [facility] 01/07/22 Office Visit [facility] Baron, [facility] [place] 11/27/21 Telemedicine Eligio Henley MD [facility] Showing recent visits within past 365 days and meeting all other requirements Future Appointments Date Type Provider Dept 12/24/22 Appointment Eligio Henley MD [facility] Showing future appointments within next 90 days and meeting all other requirements TWIST OPERATOR documented in this encounter Plan of Treatment Not on file documented as of this encounter Visit Diagnoses Diagnosis Anxiety Anxiety state, unspecified documented in this encounter Additional Health Concerns Assessment Noted Time PHQ-9 Depression Total Score: 0 11/01/19 19 3:00 PM AIR TWIST OPERATOR documented as of this encounter Care Teams Cyber Crime Investigator Relationship Specialty Start Date End Date Eligio Henley MD [place] PCP - General Family Medicine 11/12/21 10/08/24 Manisha Lopez Behavioral Health Navigator 11/17/18 documented as of this encounter
--- OUTSIDE RECORDS SUMMARY | 2025-10-09 11:03 | XMS_ITS | Encounter Summary ---
Author Organization [facility] Address [address] [place] [address] Phone Care Team Providers Care Field Service Engineer Name Role Phone Manisha Lopez Shawn M MD Primary Care Provider [phone] Reason for Visit * Reason Comments Medication Refill Encounter Details Date Type Department Care Team (Late st Contact Info) Description 03/04/2024 Refill [facility] Family [facility] [address] [place] [address] Eligio Henley MD [address] [place] [address] Medication Refill Social History Tobacco Use Types [...] on file Legal Sex Female 4:02 AM SHOWPLACE MANAGER Gender Identity Not on file Sexual Orientation Not on file Occupation Industry Job Start Date Job End Date 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
--- OUTSIDE RECORDS SUMMARY | 2025-10-09 11:03 | XMS_ITS | Encounter Summary ---
Author Organization [facility] Address [address] [place] [address] Phone Care Team Providers Care Peeler Operator Name Role Phone Manisha Lopez Shawn M MD Primary Care Provider [phone] Reason for Visit * Reason Comments Medication Refill Encounter Details Date Type Department Care Team (Late st Contact Info) Description 02/05/2022 Refill [facility] [address] [place] [address] Eligio Henley MD [address] [place] [address] Medication Refill Social History Tobacco Use Types [...] on file Legal Sex Female 4:02 AM PRIVATE SECURITY GUARD Gender Identity Not on file Sexual Orientation Not on file 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 No / Unsure 01/07/2022 9:46 AM CDT documented as of this encounter Miscellaneous Notes * Telephone Encounter - Rosalina kendrick RN - 02/05/2022 9:20 AM CDT PRN [...] Dept 01/07/22 Office Visit Iris Baron PAC [facility] [place] 11/27/21 Telemedicine Eligio Henley MD [facility] 09/16/21 Office Visit Eligio Henley MD [facility] 05/08/21 Office Visit Eligio Henley MD [facility] [place] Showing recent visits within past 365 [...] Dept 01/07/22 Office Visit Iris Baron PAC [facility] [place] 11/27/21 Telemedicine Eligio Henley MD [facility] [...] Depression Total Score: 0 11/01/19 3:00 PM PRIVATE SECURITY GUARD documented as of this encounter Care Teams Peeler Operator Relationship Specialty Start Date End Date Eligio Henley MD [place] PCP - General Family Medicine 11/12/21 10/08/24 Manisha Lopez [place] Behavioral Health Navigator 11/17/18 documented as of this encounter
--- OUTSIDE RECORDS SUMMARY | 2025-10-09 11:04 | XMS_ITS | Encounter Summary ---
Author Organization [facility] Address [address] [place] [address] Phone Care Team Providers Care Environmental Manager Name Role Phone Eligio Henley MD Primary Care Provider Manisha Lopez Christin P APN, TRANSFORMATION ARCHITECT Primary Care Pro vider Eligio Henley MD Primary Care Provider [phone] Reason for Visit * Reason Comments Medication Refill Encounter Details Date Type Department Care Team (Late st Contact Info) Description 07/29/2021 Refill [facility] [address]2 [place] [address] Eligio Henley MD [address] [place] [address] Medication Refill Social History Tobacco Use Types [...] on file Legal Sex Female 4:02 AM PRODUCTION SHIFT SUPERVISOR Gender Identity Not on file Sexual Orientation Not on file 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 Industry Job 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 Date Job 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
--- OUTSIDE RECORDS SUMMARY | 2025-10-09 11:04 | XMS_ITS | Encounter Summary ---
Author Organization [facility] Address [address] [place] [address] Phone Care Team Providers Care Economic Geographer Name Role Phone Eligio Henley MD Primary Care Provider [phone] Manisha Lopez Christin P APN, LEARNING AND DEVELOPMENT ADMINISTRATOR Primary Care Pro vider Eligio Henley MD Primary Care Provider [phone] Reason for Visit * Reason Comments Medication Refill Encounter Details Date Type Department Care Team (Late st Contact Info) Description 06/24/2021 Refill [facility] - Family Medicine [facility] [address] [place] [address] Eligio Henley MD [address] [place] [address] Medication Refill Social History Tobacco Use Types [...] on file Legal Sex Female 4:02 AM VENETIAN BLIND MACHINE OPERATOR Gender Identity Not on file Sexual Orientation Not on file Occupation Industry Job Start Date Job End Date 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 Not on file Not on file Not [...] Visits 1 month ago Arthralgia, unspecified joint [facility] Eligio Owens MD 10 months ago Acute pain of right knee [facility] Eligio Owens MD 1 year ago Anxiety [facility] Eligio Owens MD 1 year ago Type 2 diabetes mellitus with hypoglycemia without coma, without long-term current use of insulin ([facility]) [facility] Eligio Owens MD 1 year ago Arthralgia, unspecified joint [facility] Eligio Owens MD Upcoming Appointments Future Appointments In 1 month Eligio Henley MD [facility] - Recent and Past Visits Recent Visits [...] Visits 1 month ago Arthralgia, unspecified joint [facility] Eligio Bailey MD 10 months ago Acute pain of right knee [facility] Eligio Bailey MD 1 year ago Anxiety [facility] Eligio Owens MD 1 year ago Type 2 diabetes mellitus with hypoglycemia without coma, without long-term current use of insulin (HCC) [facility] Eligio Owens MD 1 year ago Arthralgia, unspecified joint [facility] Eligio Bailey MD Upcoming Appointments Future Appointments In 1 month Eligio Henley MD [facility] - Recent and Past Visits Recent Visits [...] Questions ?? FLUoxetine (PROZAC) 40 MG Capsule [[id number]] 5 Status: Active Ordering user: Eligio Henley MD 03/03/21935 Authorized by: Eligio Henley MD Frequency: Daily 03/03/21 - Until Discontinued Released by: Eligio Henley MD 03/03/21935 Diagnoses Bipolar 1 disorder (HCC) [F31.9] Anxiety [F41.9] Associated Diagnoses Bipolar 1 disorder (HCC) Anxiety Pharmacy [id number] - [place], [place] - [address] [place] [address] AT [facility] [address] documented in [...] Total Score: 0 11/01/19 19 3:00 PM VENETIAN BLIND MACHINE OPERATOR documented as of this encounter Care Teams Economic Geographer Relationship Specialty Start Date End Date Eligio Henley MD PCP - General Family Medicine 11/01/18 11/04/21 Kayy Waldrop, BRUSH HEAD MAKER, LEARNING AND DEVELOPMENT ADMINISTRATOR [facility] [place] [address] PCP - General Advanced Practice Nurse 11/05/21 11/11/21 Eligio Henley MD PCP - General Family Medicine 11/12/21 10/08/24 Manisha Lopez Behavioral Health Navigator 11/17/18 documented as of this encounter
--- OUTSIDE RECORDS SUMMARY | 2025-10-09 11:04 | XMS_ITS | Encounter Summary ---
Author Organization [facility] Address [address] [place] [address] Phone Care Team Providers Care Knitting Machine Fixer Head Name Role Phone Eligio Henley MD Primary Care Provider [phone] Manisha Lopez Christin P APN, MILL MANAGER Primary Care Pro vider Eligio Henley MD Primary Care Provider [phone] Reason for Visit * Reason Comments Medication Refill Encounter Details Date Type Department Care Team (Late st Contact Info) Description 10/13/[address] 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 No / Unsure 09/16/2021 1:56 PM ED TECH documented as of this encounter Miscellaneous Notes [...] 90 days and meeting all other requirements TECH documented in this encounter Plan of Treatment Not on file documented as of this encounter Visit Diagnoses Diagnosis Anxiety Anxiety state, unspecified Arthralgia, unspecified joint documented in this encounter Additional Health Concerns Assessment Noted Time PHQ-9 Depression Total Score: 0 11/01/19 3:00 PM ED TECH documented as of this encounter Care Teams Knitting Machine Fixer Head Relationship Specialty Start Date End Date Eligio Henley MD PCP - General Family Medicine 11/01/18 11/04/21 Kayy Waldrop, REIMBURSEMENT MANAGER, MILL MANAGER [facility] [place] [address] PCP - General Advanced Practice Nurse 11/05/21 11/11/21 Eligio Henley MD PCP - General Family Medicine 11/12/21 10/08/24 Manisha Lopez Behavioral Health Navigator 11/17/18 documented as of this encounter
--- OUTSIDE RECORDS SUMMARY | 2025-10-09 11:04 | XMS_ITS | Encounter Summary ---
Author Organization [facility] Address [facility] [place] [address] Care Team Providers Care Special Services Supervisor Name Role Phone Krystin Ibarra MD Primary Care Provider + Encounter Details Date Type Department Care Team (Latest Contact Info) Description 08/28/2025 Results Follow-Up [facility] Family Medicine - [place] [address] [place] [id number] Krystin Ibarra MD [address] [place] [phone] COMPREHENSIVE METABOLIC PANEL, CBC W/DIFF AUTOMATED, THYROXINE, FREE (FT4), Additional followed-up results: 2 Social History Tobacco Use Types Packs/Day Years Used Date Smoking Tobacco: Former Passive Smoke Exposure: Past Smokeless Tobacco: Never Comments:Vaped for 3 years restarted vaping again Alcohol Use Standard Drinks/Week Comments Not Currently 0 (1 standard drink = 0.6 oz pur e alcohol) Not enough to answer PHQ-2 Answer Date Recorded Patient Health Questionnaire-2 Score 6 08/02/2025 Comments No Sex and Gender Information Value Date Recorded Sex Assigned at Female 12/30/2024 1:17 PM AUTOCAD TECHNICIAN Legal Sex Female 7:16 PM CDT Gender Identity Female 02/23/2025 9:36 AM CDT Sexual Orientation Not on file documented as of this encounter Progress Notes * Whitney Yusuf MA - 08/31/2025 9:13 AM CST Good Morning, just reaching out Dr. Ibarra placed an urgent referral for Neurology for the patient but she has not heard anything yet. Can we please have a status update? : 1980 Jeevan Fleming 08/31/2025 8:37 AM I will take a look Jeevan Fleming 08/31/2025 8:38 AM It looks like someone outside our office marked the referral as Do Not Schedule, so it dropped of any WQ. I will process it. Jeevan Fleming 08/31/2025 8:39 AM Also, be advised that [facility] is out of network with her [facility]! Me 08/31/2025 8:46 AM Do you need me to place an external referral? Jeevan Fleming 08/31/2025 9:09 AM Nope, I'll route it externally. Likely to [facility]! Me 08/31/2025 9:10 AM Perfect, thanks for all your help CAD TECHNICIAN * Whitney Yusuf MA - 08/31/2025 8:34 AM CST I just sent a message to the referral department for a status update on the referral. CAD TECHNICIAN documented in this encounter Plan of Treatment Not on file documented as of this encounter Visit Diagnoses Not on filedocumented in this encounter Additional Health Concerns Assessment Noted Time PHQ-9 Depression Total Score: 20 025 1:08 PM CDT documented as of this encounter Care Teams Special Services Supervisor Relationship Specialty Start Date End Date Krystin Ibarra MD [address] [place] [address] PCP - General FAMILY PRACTICE 12/21/24 documented as of this encounter
--- OUTSIDE RECORDS SUMMARY | 2025-10-09 11:04 | XMS_ITS | Encounter Summary ---
Author Organization [facility] Address [address] [place] [address] Phone Care Team Providers Care Tank Builder Supervisor Name Role Phone Manisha Lopez Shawn M MD Primary Care Provider [phone] Reason for Visit * Reason Comments Medication Refill Encounter Details Date Type Department Care Team (Late st Contact Info) Description 12/12/2021 Refill [facility] - Family Medicine 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 on file Not on file Not [...] 90 days and meeting all other requirements BOILER documented in this encounter Plan of Treatment Not on file documented as of this encounter Visit Diagnoses Not on filedocumented in this encounter Additional Health Concerns Assessment Noted Time PHQ-9 Depression Total Score: 0 11/01/19 19 3:00 PM RAG BOILER documented as of this encounter Care Teams Tank Builder Supervisor Relationship Specialty Start Date End Date Eligio Henley MD [place] PCP - General Family Medicine 11/12/21 10/08/24 Manisha Lopez [place] Behavioral Health Navigator 11/17/18 documented as of this encounter
--- OUTSIDE RECORDS SUMMARY | 2025-10-09 11:04 | XMS_ITS | Encounter Summary ---
Author Organization [facility] Address [address] [place] [address] Phone Care Team Providers Care Compactor Driver Name Role Phone Manisha Lopez Shawn M MD Primary Care Provider [phone] Reason for Visit * Reason Comments Medication Refill Encounter Details Date Type Department Care Team (Late st Contact Info) Description 12/16/2021 Refill [facility] - Family Medicine 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 Not on file Not on file [...] 128/66 08/09/20 120/78 Patient-entered: No data recorded LIANCE PROJECT MANAGER documented in this encounter Plan of Treatment Not on file documented as of this encounter Visit Diagnoses Diagnosis Fibromyalgia Mylagia and myositis, unspecified Numbness and tingling in both hands Restless leg syndrome Restless legs syndrome (RLS) documented in this encounter Additional Health Concerns Assessment Noted Time PHQ-9 Depression Total Score: 0 11/01/19 3:00 PM COMPLIANCE PROJECT MANAGER documented as of this encounter Care Teams Compactor Driver Relationship Specialty Start Date End Date Eligio Henley MD [place] PCP - General Family Medicine 11/12/21 10/08/24 Manisha Lopez [place] Behavioral Health Navigator 11/17/18 documented as of this encounter
--- OUTSIDE RECORDS SUMMARY | 2025-10-09 11:04 | XMS_ITS | Encounter Summary ---
Author Organization [facility] Address [address] [place] [address] Phone Care Team Providers Care Computer Network Support Specialist Name Role Phone Eligio Henley MD Primary Care Provider [phone] Manisha Lopez Christin P APN, SPORTS MEDICINE PHYSICIAN Primary Care Pro vider Eligio Henley MD Primary Care Provider [phone] Reason for Visit * Reason Comments Medication Refill Encounter Details Date Type Department Care Team (Late st Contact Info) Description 08/10/2021 Refill [facility] Family Medicine [facility] [address] [place] [address] Eligio Henley MD [address] [place] [address] Medication Refill Social History Tobacco Use Types [...] on file Legal Sex Female 4:02 AM FOOD CHEMIST Gender Identity Not on file Sexual Orientation Not on file 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 No / Unsure 08/11/2021 4:06 PM CDT documented as of this encounter Miscellaneous Notes * Telephone Encounter - Ewa Rosalina L, RN - 08/11/2021 1:39 PM CDT [place] [...] Visits 3 months ago Arthralgia, unspecified joint [facility] - Eligio Bailey MD 1 year ago Acute pain of right knee [facility] Eligio Owens MD 1 year ago Anxiety [facility] Eligio Owens MD 1 year ago Type 2 diabetes mellitus with hypoglycemia without coma, without long-term current use of insulin (HCC) [facility] Eligio Owens MD 2 years ago Arthralgia, unspecified joint [facility] Eligio Owens MD Upcoming Appointments Future Appointments In 2 days [facility] - Recent and Past Visits Recent Visits Date Type Provider Dept 05/08/21 Office Visit Eligio Henley MD [facility] 08/09/20 [facility] Show[facility] recent visits within past 460 days [...] Visits 3 months ago Arthralgia, unspecified joint [facility] Eligio Bailey MD 1 year ago Acute pain of right knee [facility] Eligio Owens MD 1 year ago Anxiety [facility] Eligio Bailey MD 1 year ago Type 2 diabetes mellitus with hypoglycemia without coma, without long-term current use of insulin (HCC) [facility] Eligio Owens MD 2 years ago Arthralgia, unspecified joint [facility] Eligio Bailey MD Upcoming Appointments Future Appointments In 2 days Eligio Henley MD [facility] D[facility] - Recent and Past Visits Recent Visits [...] Total Score: 0 11/01/19 19 3:00 PM FOOD CHEMIST documented as of this encounter Care Teams Computer Network Support Specialist Relationship Specialty Start Date End Date Eligio Henley MD PCP - General Family Medicine 11/01/18 11/04/21 Kayy Waldrop, MOLD SETTER, SPORTS MEDICINE PHYSICIAN [facility] [place] [address] PCP - General Advanced Practice Nurse 11/05/21 11/11/21 Eligio Henley MD PCP - General Family Medicine 11/12/21 10/08/24 Manisha Lopez Behavioral Health Navigator 11/17/18 documented as of this encounter
--- OUTSIDE RECORDS SUMMARY | 2025-10-09 11:04 | XMS_ITS | Encounter Summary ---
Author Organization [facility] Address [address] [place] [address] Phone Care Team Providers Care Hat Band Attacher Name Role Phone Eligio Henley MD Primary Care Provider [phone] Manisha Lopez [facility] Kayy WaldropN, CASE WORK AIDE Primary Care Pro vider Eligio Henley MD Primary Care Provider [phone] Reason for Visit * Reason Comments Medication Refill Encounter Details Date Type Department Care Team (Late st Contact Info) Description 06/02/2021 Refill [facility] Group - Family Medicine [facility] [address] [place] [address] Eligio Henley MD [address] [place] [address] Medication Refill Social History Tobacco Use Types [...] on file Legal Sex Female 4:02 AM RESEARCH CENTER PARTNER Gender Identity Not on file Sexual Orientation Not on file 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 No / Unsure 05/08/2021 1:23 PM CDT documented as of this encounter Miscellaneous Notes * Telephone Encounter - Rosalina Mcneil RN - 06/03/2021 2:59 PM CDT This [...] Depression Total Score: 0 11/01/19 3:00 PM RESEARCH CENTER PARTNER documented as of this encounter Care Teams Hat Band Attacher Relationship Specialty Start Date End Date Eligio Henley MD PCP - General Family Medicine 11/01/18 11/04/21 Kayy Waldrop APN, CASE WORK AIDE [address] [place] [address] PCP - General Advanced Practice Nurse 11/05/21 11/11/21 Eligio Henley MD PCP - General Family Medicine 11/12/21 10/08/24 Manisha Lopez Behavioral Health Navigator 11/17/18 documented as of this encounter
== END 2025-10-09 10:19 | disposition home or self-care (01) ==
PROVIDERS: Emergency Provider Nurse Practitioner; PCP Student in an Organized Health Care Education/Training Program
DX: B34.9 Viral infection, unspecified (principal); Z20.822 Contact with and (suspected) exposure to COVID-19; E11.9 Type 2 diabetes mellitus without complications; Z79.84 Long term (current) use of oral hypoglycemic drugs; Z79.4 Long term (current) use of insulin; I10 Essential (primary) hypertension; K21.9 Gastro-esophageal reflux disease without esophagitis; E66.9 Obesity, unspecified; Z68.42 Body mass index [BMI] 45.0-49.9, adult
CPT/HCPCS: 87081; 87426; 87804; 87880; 99213; G0463